=== PATIENT | male | born 1950 | race Caucasian/White ===

== ENCOUNTER 2017-03-13 00:40 | Inpatient (IN) ==
[2017-03-13] MEDS ORDERED: NS 1,000 ML IV ONE (01:02)
[2017-03-13] MEDS ORDERED: DiltiaZEM 25 MG/5 ML INJECTION IVP ONE (01:11)
[2017-03-13] MEDS: DiltiaZEM Drip 125 MG in NS 100 ML IV SCH ×3 (01:35→18:58)
[2017-03-13] MEDS ORDERED: CEFTRIAXONE (ER USE ONLY) 1 GM in NS 100 ML IV ONE (02:01)
[2017-03-13] MEDS ORDERED: AZITHROMYCIN IV 500 MG in NS 250ml 250 ML IV ONE (02:02)
[2017-03-13] MEDS ORDERED: ONDANSETRON 4 MG/2 ML INJECTION IVP PRN (02:29)
--- NOTE | 2017-03-13 02:37 | Emergency Department Report ---
General Adult HPI - General Chief complaint: Upper Respiratory Infection Stated complaint: [place] Time Seen by Provider: 03/13/17 00:58 Source: patient Mode of arrival: EMS Limitations: no limitations - History of Present Illness HPI narrative: 66-year-old male presents to the emergency department with a chief complaint of a COPD exacerbation. Patient has been feeling short of breath and palpitations for the past 3 days. Patient has been noncompliant with his medication regimen for the past several days. Patient states he stopped taking his medicines because he is dissatisfied with his doctor at [facility] patient denies any pain or discomfort. Patient does note feeling like his heart is beating quickly. Patient does note feeling better from a respiratory standpoint with the albuterol and Solu-Medrol given from EMS. Patient notes a cough productive of yellow phlegm. He denies any other complaints or associated symptoms. Symptoms have been persistent in nature since onset. Patient was at home when his symptoms began. - Related Data Home Medications Medication Instructions Recorded Confirmed Albuterol Sulfate [Ventolin Hfa] 1 - 2 puff ORAL INH Q6H PRN #0 01/22/16 Furosemide 120 mg PO DAILY #0 01/22/16 Ginkgo Biloba (Ginkgo) PO TID #0 01/22/16 Ibuprofen 800 mg PO Q4H PRN #0 01/22/16 Ipratropium/Albuterol Sulfate 1 vial AEROSOL Q6H PRN #0 01/22/16 [Iprat-Albut 0.5-3(2.5) mg/3 ml] L.acidoph,Paracasei, B.lactis 1 cap PO DAILY #0 01/22/16 [Probiotic] Potassium PO DAILY #0 01/22/16 Potassium Chloride ER Tab [K-Dur] 20 meq PO BID #0 01/22/16 Previous Rx's Medication Instructions Recorded Levalbuterol HCl [Xopenex] 1 vial AEROSOL QID #60 vial 01/22/16 PredniSONE [Deltasone] 20 mg PO PER COMMENTS #15 tab 01/22/16 Allergies Allergy/AdvReac Type Severity Reaction Status Date / Time No Known Allergies Allergy Unverified 12/03/14 11:21 Review of Systems Constitutional: Denies: fever, chills Eyes: Denies: eye pain, vision change ENT: Denies: ear pain, throat pain Cardiovascular: Reports: palpitations. Denies: chest pain Respiratory: Reports: cough, dyspnea, wheezes. Denies: hemoptysis Gastrointestinal: Denies: abdominal pain, nausea, vomiting, diarrhea Genitourinary: Denies: urgency, dysuria Musculoskeletal: Denies: back pain, arthralgia Integumentary: Denies: erythema, rash Neurological: Denies: headache, numbness Psychiatric: Denies: anxiety, depression Endocrine: Denies: fatigue, heat or cold intolerance Hematological/Lymphatic: Denies: easy bleeding, easy bruising Allergic/Immunologic: Denies: facial swelling, urticaria PFSH Patient Stated Medical History Cardiac Arrhythmia Yes Congestive Heart Failure Yes Chronic Obstructive Pulmonary Yes Disease (COPD) COPD, CHF, oxygen dependence - 4L NC, DM2, HTN, HLD Surgical History: Negative per patient. Family History: Reviewed and Non-contributory. - Social History Smoking status: Current every day smoker Substance use type: does not use Alcohol intake frequency: does not drink Physical Exam - Limitations Limitations: no limitations - General General appearance: alert, in no apparent distress - Normal Exams: Head:: Normocephalic without trauma Eyes:: Pupils are PERRLA w/ EOMI, No scleral icterus, irritation, or foreign bodies noted ENMT:: No facial trauma, nasal exudates, pharyngeal erythema, or exudates are noted Dental: No fractured, loose, or missing teeth noted Neck:: Full range of motion, without adenopathy, JVD, bruits or thyromegaly Chest/Respirations:: with good airflow, and symmetry bilaterally (Scattered end expiratory wheezes bilaterally. ) Cardiovascular:: without murmur or gallop, Pulses 2+ all extremities, capillary refill, <2 seconds all extremities (Irregularly Irregular Rhythm.) Abdomen:: Bowel sounds positive, soft, non-tender, non-distended, no hepatosplenomegaly, masses or bruits noted Lymphatic:: No lymphadenopathy, or lymphedema noted Musculoskeletal:: No tenderness, or deformity noted, good range of motion, all extremities Integumentary:: No rashes, hives, or bruising noted, hair and nails, without abnormality Neurological:: Patient is alert, and oriented, cranial nerves, motor/sensory/ cerebellar, exams w/o gross deficits, to observation Psychiatric:: Patient exhibits, appropriate attention, emotion and affect Course Vital Signs Temperature 98.7 F 07/30/17 00:40 Pulse Rate 158 H 03/13/17 00:40 Respiratory Rate 20 03/13/17 00:40 Blood Pressure 88/67 03/13/17 00:40 Pulse Oximetry 97 03/13/17 00:40 Temperature 98.7 F 03/13/17 00:40 Pulse Rate 146 H 03/13/17 02:17 Respiratory Rate 26 H 03/13/17 02:17 Blood Pressure 93/66 03/13/17 02:17 Pulse Oximetry 97 03/13/17 02:17 Medical Decision Making - MDM Narrative Medical decision making narrative: Labs / imaging were discussed in detail with the patient and questions are answered. Patient was given 500 mL normal saline intravenously in the emergency department. Cardizem drip was initiated in the emergency department with a 10 mg bolus and drip initiated at 5 mg/hr. Drip was titrated up to 10 mg /hour in the emergency department the time of transfer to CCU. Patient's heart rate was approximately 127 beats per minute upon admission to hospital. Patient remained pain-free in the emergency department but does note feeling of palpitations. Patient was given nebulized albuterol treatment and Solu-Medrol 125 mg IV 1 from EMS prior to arrival to the emergency department. Blood cultures were obtained and patient was started on Rocephin 1 g intravenously and azithromycin 500 mg IV 1 in the emergency department. Patient was admitted to the CCU in improved condition after discussion with Dr. Lee who is the tele-hospitalist covering for Dr. Potts. Patient is admitted to the service of Dr. Potts in improved condition. Patient is in agreement with the current plan of management. Accepting physician is in agreement with the current plan of management. No further orders. Anticoagulation will be left to the patient's greaser helper Dr. Martins who has been consult and will see the patient in the morning. Diuresis will also be left up to the patient's greaser helper. 60 minutes of critical care time was assessed to the patient due to complex medical decision-making, repeated assessment at the bedside, and potential for decompensation. Patient was admitted to the ICU in improved condition. - Differential Diagnosis COPD exacerbation, Afib with RVR, Metabolic disorder, CHF exacerbation - Lab Data Result diagrams: 03/13/17 01:07 03/13/17 01:07 Lab Results 03/13/17 03/13/17 Range/Units 01:07 01:07 WBC 9.1 (4.5-11.0) T/MM3 RBC 4.20 L (4.50-5.90) M/MM3 Hgb 13.9 (13.5-17.5) GM/DL Hct 43.9 (41-53) % MCV 104.5 H (80-100) UM3 MCH 33.1 (26-34) UUG MCHC 31.7 (31-37) GM/DL RDW Std Deviation 51.7 H (36.9-50.2) FL Plt Count 169 (130-400) T/MM3 MPV 11.2 (9.4-12.4) UM3 Immature Gran % (Auto) 0.1 (0.0-0.5) % Neut % (Auto) 49.8 (33-66) % Lymph % (Auto) 38.9 (23-45) % [place] % (Auto) 8.0 (0-9.0) % Eos % (Auto) 2.8 (0-4) % Baso % (Auto) 0.4 (0-2) % Neut # 4.5 (1.8-7.7) T/MM3 Lymph # 3.5 (1-4.8) T/MM3 [place] # 0.7 (0-0.8) T/MM3 Eos # 0.3 (0-0.5) T/MM3 Baso # 0.0 (0-0.2) T/MM3 Abs Immat Gran (auto) 0.01 (0.00-0.03) T/MM3 Turbidity < 20 (0-20) Sodium 144 (134-144) MEQ/L Potassium 3.6 (3.6-5) MEQ/L Chloride 99 (98-107) MEQ/L Carbon Dioxide 37 H (22-30) MEQ/L Anion Gap 8 (5-15) MEQ/L BUN 21.0 H (9-20) MG/DL Creatinine 0.8 (0.8-1.5) MG/DL GFR Calculation 97 BUN/Creatinine Ratio 26 (6-26) RATIO Glucose 117 H (75-110) MG/DL Calculated Osmolality 281 H (261-280) MOSM/KG Calcium 9.3 (8.4-10.2) MG/DL Total Bilirubin 1.90 H (0.20-1.30) MG/DL Icterus Index < 2 (0-7) AST 48 (17-59) U/L ALT 62 (21-72) U/L Alkaline Phosphatase 72 (38-126) U/L Troponin I 0.045 (0-0.12) ng/ml B-Natriuretic Peptide 2030 H (0-175) pg/mL Total Protein 7.3 (6.3-8.2) G/DL Albumin 4.1 (3.5-5.0) G/DL Globulin 3.2 (2.4-3.6) G/DL Albumin/Globulin Ratio 1.3 (1.1-2.2) RATIO Specimen Hemolysis < 15 (0-25) - Radiology Data CXR - Findings consistent with fluid overload and cannot rule out LLL infilatrate. - EKG Data EKG #1 EKG results narrative: Atrial fibrillation with rapid ventricular response. 151 bpm. No STEMI. Critical Care Time Critical Care Time: Yes Total Critical Care Time: 60 Attestation: Patient required complex medical decision-making, repeated assessment at the bedside, and had potential for decompensation. Patient was started on a Cardizem drip in the emergency department which will be titrated to effect. Cardizem drip was at 7.5 mg/hour at the time of admission to CCU. Drip will be titrated up forward as indicated for rate control. Patient was admitted to the ICU in improved condition. Critical care time was spent discussing the patient with family, and documenting the medical record, making phone calls regarding patient care, and treating the patient. Disposition Clinical Impression: Atrial fibrillation with RVR, COPD exacerbation Disposition: 02 To [facility] Acute Care Condition: Improved Time of Disposition: 02:00 (Admit. Dr. Potts. ) - Seen By: physician
[2017-03-13] MEDS ORDERED: NS FLUSH BAG 500ml IV PRN (02:50)
[2017-03-13] MEDS: NICOTINE 21 MG PATCH TD PRN (03:19)
--- NOTE | 2017-03-13 03:23 | History & Physical Report ---
<Rolo Lee - Last Filed: 03/13/17 03:18> History of Present Illness Date: 03/13/17 Chief complaint: shortness of breath, cough, wheezing HPI: This is a 66 y/o w/ h/o COPD, CHF and multiple other medical issues who presents to ED w/ cc of 3 day h/o worsening cough, shortness of breath and wheezing. Patient states using "puffers" of albuterol at home frequently yesterday and then given neb alb en route and in ER noted to be in AFib RVR w/ rate varying from 90s - 160s. EKG showed Afib w/ rate of 150. Patient on 4 L /min O2 continuously and sats have been stable. Patient denies f/c/s, denies cp , diaphoresis, de luna and n/v. Patient has h/o COPD exacerbations in the past. CXR in ER suspicous for LLL infiltrate though not well visualized - per prelim report. In ER patient started on Azithromycin and Ceftriaxone and given Solu- Medrol 125mg IV x one and also Cardizem 10mg IV bolus and started on Cardizem gtt. Patient states has no recollection of Afib in the past. Patient in Unit states he is breathing "much better". O2 sats unchanged. Patient admitted to the Hospitalist service for futher eval and management. Review of Systems Review of systems: 10 point ROS negative except as noted in HPI PFSH CHF, COPD on 4 L/min O2 continuously and continues to smoke tobacco cigarettes LE edema Chronic Hypoxic Resp failure Surgical History: Negative per patient. Family History: Mother w/ COPD - Social History Smoking status: Current every day smoker Alcohol intake frequency: a few times a month Medications Home Medications Medication Instructions Recorded Confirmed Type Albuterol Sulfate [Ventolin Hfa] 1 - 2 puff ORAL INH Q6H PRN #0 01/22/16 History Furosemide 120 mg PO DAILY #0 01/22/16 03/13/17 History Ginkgo Biloba tab PO TID #0 01/22/16 History Ibuprofen 800 mg PO Q4H PRN #0 01/22/16 03/13/17 History Ipratropium/Albuterol Sulfate 1 vial AEROSOL Q6H PRN #0 01/22/16 03/13/17 History [Iprat-Albut 0.5-3(2.5) mg/3 ml] L.acidoph,Paracasei, B.lactis 1 cap PO DAILY #0 01/22/16 03/13/17 History [Probiotic] Potassium Chloride ER Tab [K-Dur] 20 meq PO BID #0 01/22/16 03/13/17 History Allergies Allergy/AdvReac Type Severity Reaction Status Date / Time No Known Allergies Allergy Verified 03/13/17 05:10 Exam Vital Signs: Temperature 98.7 F 03/13/17 00:40 Pulse Rate 146 H 03/13/17 02:17 Respiratory Rate 26 H 03/13/17 02:17 Blood Pressure 93/66 03/13/17 02:17 Pulse Oximetry 97 03/13/17 02:17 Telemetry Rhythm: A-fib with RVR Height: 1.75 m Weight: 133.3 kg - Constitutional Present: no acute distress - Routine HEENT Exam Head: Present: normocephalic, atraumatic Eye: Present: EOMI, PERRL ENT: Present: mucous membranes moist - Routine Neck Exam Present: supple, full ROM. Absent: JVD - Routine Respiratory Exam Present: prolonged expiratory phase, rales, wheezes. Absent: accessory muscle use, dyspnea - Routine Cardiovascular Exam Present: irregular rhythm - Routine Abdominal Exam Present: soft, normoactive bowel sounds, non distended. Absent: tenderness - Routine Extremities Exam Present: edema (trace to 1+ LE edema (L>R)). Absent: cyanosis, clubbing - Routine Neurological Exam Present: alert, oriented X3, CN II-XII intact. Absent: altered mental status - Routine Psychiatric Exam Present: normal affect, normal thought process, cooperative Results - Labs CBC & Chem 7: 03/13/17 01:07 03/13/17 01:07 Assessment and Plan DVT Prophylaxis: SCD's Resuscitation Status: Do Not Resuscitate Assessment and Plan: 1) Acute COPD Exacerbation 2) Acute Bronchitis vs. Acute LLL pneumonia 3) Acute Afib w/ RVR 4) H/o CHF 5) Chronic Hypoxic Respiratory Failure on chronic O2 per NC at 4 L/min 6) h/o corticosteroid use 7) Tobacco use - 30-40 + years Plan: Admit to CCU on Hospitalist service Consult Cardiology Cardizem gtt - titrate as directed SCDs Labs in Am Troponin at 0600 Rocephin 1 gram IV q 24 hoursnder Azithromycin 500mg x one in ER, then 250mg po once daily starting tonight Xopenex TID prn Solu-Medrol 125mg IV q 8 hours Continue Lasix and KCL supplements Telemetry Cardiac diet Nicotine patch Patient desires to be DNR - confirmed by ER physician and nursing I discussed the plan of care w/ the patient and he verbalized understanding and agreement Hospital Course Summary Disclaimer: The visit summary below is not to be considered part of the above Progress Note. <German Potts - Last Filed: 03/13/17 09:03> History of Present Illness Date: 03/13/17 [facility] Patient Stated Medical History Cardiac Arrhythmia Yes Congestive Heart Failure Yes Chronic Obstructive Pulmonary Yes Disease (COPD) Other GI constipation Hx Benign Prostatic Yes Hyperplasia Hx Kidney Stones Yes Exam Vital Signs: Temperature 98.3 F 03/13/17 07:26 Pulse Rate 91 03/13/17 07:45 Respiratory Rate 25 H 03/13/17 07:45 Blood Pressure 148/80 H 03/13/17 07:45 Pulse Oximetry 96 03/13/17 07:45 Oxygen Delivery Method Nasal Cannula Oxygen Flow Rate 3 Height: 5 ft 9 in Weight: 135.4 kg Results - Labs CBC & Chem 7: 03/13/17 01:07 03/13/17 01:07 Assessment and Plan Assessment and Plan: Above pt seen in the ICU, appears to be more comfortable. Telemetry still shows HR ranging from 90 to 130. Pt verbalized being a DNR. He lives alone and states has no friends or significant family support. Denies being suicidal, but admits being depressed ( who would'nt be? - he told me). On PE Pt mucosas are moist. Neck - short and thick. Chest - poor air entry bilaterally. Irregular rate and rhythm. Abd - Soft NT/ND Ext - trace pedal edema. Diagnosis 1) CHF with superimposed A fib + RVR. - Continue cardizem drip - Check TSH - May need to have 2-D echo repeated. - Denies any recent alcohol consumption. - Check UDS. - First 2 TnI negative. 2) COPD exacerbation - with ? of LLL PNA. Per admission pt has chronic respiratory failure. - CXR PA and Lateral ordered - Continue Rocephin and Zithromax. - Pt has been exposed to Tobacco for 30 to 40 years. - Solu-Medrol 125mg IV q 8 hours + accuchecks and sliding scale coverage for high BS. 3) Depression - due to ? medical condition ? of thyroid problems. 4) ELADIA ? Pt states he chokes at night, this could be due to his CHF (PND - orthopnea). - Check nocturnal oxymetry once more compensated. 5) Tobacco abuse. - On Nicotine patch for now. Prevention 1) SCD's 2) Nicotine patch 3) Lovenox. Patient desires to be DNR Hospital Course Summary Disclaimer: The visit summary below is not to be considered part of the above Progress Note.
[2017-03-13] MEDS: METHYLPREDNISOLONE SOD SUCC 125mg/2ml INJECTION IVP SCH ×3 (03:39→17:31)
[2017-03-13 03:57] VITALS: BMI 43.2
[2017-03-13] MEDS: ENOXAPARIN 40 MG/0.4 ML INJECTION SQ SCH ×2 (04:44→08:28)
[2017-03-13] MEDS ORDERED: FUROSEMIDE 40 MG/4 ML INJECTION IVP ONE (05:01)
[2017-03-13] MEDS: SALINE FLUSH 10ml SYRINGE IVF PRN ×3 (06:00→17:32)
[2017-03-13] MEDS ORDERED: NICOTINE PATCH REMOVAL TD PRN (06:15)
[2017-03-13] MEDS ORDERED: FUROSEMIDE 80 MG TABLET PO SCH (09:00)
[2017-03-13] MEDS ORDERED: FUROSEMIDE 40 MG TABLET PO SCH (09:00)
[2017-03-13] MEDS ORDERED: DEXTROSE 50% SYRINGE 50ml (1 AMP) IVP PRN (09:04)
--- NOTE | 2017-03-13 09:09 | XRay Report ---
INDICATION: Clarify if pt has focal infiltrate vs CHF alone PROCEDURE: CHEST 2-VIEWS UPRIGHT (PA & LAT) Encounter: Initial COMPARISON: March 13, 2017 at 0125 and January 22, 2016 FINDINGS: Increased interstitial markings and indistinct opacities in both lung hogan. No pneumothorax or focal lobar consolidation. No obvious pleural effusion. Heart remains enlarged. Mediastinal contours are stable. Pulmonary vascularity is indistinct. Impression: Diffuse interstitial pattern could represent moderate pulmonary edema from congestive failure or atypical/viral pneumonia. .
--- NOTE | 2017-03-13 09:15 | XRay Report ---
Indication: Wheezing PROCEDURE: XR chest 1V: Encounter: Initial Comparison: January 22, 2016 Findings: Mild diffusely increased interstitial markings are seen, similar to the prior study. Left lung base is obscured by soft tissues and overlapping cardiac silhouette. No pneumothorax or pleural effusion seen. No focal lobar pneumonia. Cardiac silhouette remains enlarged. Mediastinal contours are stable. Pulmonary vascularity is indistinct. Impression: Diffuse interstitial prominence could represent pulmonary edema or atypical/viral pneumonia. .
[2017-03-13] MEDS: FUROSEMIDE 40 MG/4 ML INJECTION IVP SCH ×2 (09:59→20:28)
[2017-03-13] MEDS ORDERED: INHALER ASSIST DEVICE (Optichamber) MC ONE (10:30)
[2017-03-13] MEDS: TIOTROPIUM 18mcg/cap HANDIHALER ORAL INH SCH (10:51)
[2017-03-13] MEDS: INSULIN ASPART 100unit/ml INJECTION SQ PRN ×3 (11:23→21:13)
[2017-03-13] MEDS ORDERED: PNEUMOCOCCAL 13 VACCINE 0.5ml INJECTION IM ONE (16:33)
[2017-03-13] MEDS ORDERED: MAGNESIUM SULFATE 1gm PREMIX 1 GM/100 ML BAG IV ONE (17:25)
[2017-03-13] MEDS: CEFTRIAXONE 1 G in NS 100 ML IV SCH (20:24)
[2017-03-13] MEDS ORDERED: AZITHROMYCIN 250 MG TABLET PO SCH (21:00)
[2017-03-14] MEDS: METHYLPREDNISOLONE SOD SUCC 125mg/2ml INJECTION IVP SCH (01:37)
[2017-03-14] MEDS: SALINE FLUSH 10ml SYRINGE IVF PRN ×5 (01:38→16:36)
[2017-03-14] MEDS: DiltiaZEM Drip 125 MG in NS 100 ML IV SCH (05:02)
[2017-03-14] MEDS: INSULIN ASPART 100unit/ml INJECTION SQ PRN ×3 (06:31→20:41)
[2017-03-14] MEDS: NICOTINE 21 MG PATCH TD PRN (08:00)
[2017-03-14] MEDS ORDERED: NS 100 ML ONE (08:01)
[2017-03-14] MEDS ORDERED: SALINE FLUSH 10ml SYRINGE ONE (08:01)
[2017-03-14] MEDS ORDERED: IOHEXOL 350mg/ml 75ml INJECTION ONE (08:01)
[2017-03-14] MEDS: ENOXAPARIN 40 MG/0.4 ML INJECTION SQ SCH (08:02)
[2017-03-14] MEDS: FUROSEMIDE 40 MG/4 ML INJECTION IVP SCH ×2 (08:30→20:40)
--- NOTE | 2017-03-14 08:40 | CT Scan Report ---
Indication: Rule out PE PROCEDURE: CT angio pulm emboli: Encounter: Initial Comparison: Chest x-ray, 03/13/2017 Technique: Axial, coronal, and sagittal images of the chest were acquired utilizing CT and radiographic technique with additional coronal and sagittal MIPS images and utilizing 74 cc of Omnipaque 350. Radiation dose reduction techniques were utilized. Findings: There are no definite filling defects within the pulmonary arteries. There is cardiomegaly with biventricular enlargement and a small pericardial effusion. There is multivessel coronary artery disease manifested as coronary artery calcifications. There are bilateral effusions bibasal atelectasis. There is pulmonary hypervascularity and mixed interstitial and airspace changes suggesting congestive heart failure with pulmonary edema. Images through the upper abdomen demonstrates no adrenal mass effect. Bone window review demonstrates some degenerative endplate changes of the dorsal spine but no aggressive lesions are identified. Impression: 1. Negative for pulmonary embolism. 2. Findings typical of congestive heart failure with mixed interstitial and alveolar edema. 3. Bibasal effusions and atelectasis. 4. Trace pericardial effusion. 5. Coronary artery disease. .
[2017-03-14] MEDS: TIOTROPIUM 18mcg/cap HANDIHALER ORAL INH SCH (08:47)
[2017-03-14] MEDS: METHYLPREDNISOLONE SOD SUCC 40mg/ml INJECTION IVP SCH ×2 (10:01→16:36)
--- NOTE | 2017-03-14 10:07 | Progress Note ---
Subjective: Pt states he is feeling well today, still with dyspnea but not too bad. He had an uneventful night. Denies any CP/SOB. No new episodes of NSVT Objective Vital signs: Temperature 97.9 F 03/14/17 08:00 Pulse Rate 113 H 03/14/17 09:00 Respiratory Rate 28 H 03/14/17 09:00 Blood Pressure 140/85 H 03/14/17 09:00 Pulse Oximetry 93 03/14/17 09:00 Oxygen Delivery Method Nasal Cannula Oxygen Flow Rate 5 Rhythm: Normal Sinus Rhythm Weight: 135.2 kg - Constitutional Present: no acute distress - Routine HEENT Exam Head: Present: normocephalic, atraumatic Eye: Present: EOMI, PERRL ENT: Present: mucous membranes moist - Routine Respiratory Exam Present: dyspnea, rhonchi, wheezes, distant breath sounds - Routine Cardiovascular Exam Present: irregularly irregular - Routine Abdominal Exam Present: soft, non distended, non tender - Routine Extremities Exam Present: edema. Absent: cyanosis, clubbing - Routine Neurological Exam Present: alert, oriented X3, CN II-XII intact - Routine Psychiatric Exam Present: normal affect, cooperative, good insight, good judgment Results - Labs CBC & Chem 7: 03/14/17 04:08 03/14/17 04:08 Assessment and Plan Assessment and Plan: Summary: This pt was admitted to the hospital with new onset A fib with RVR. He was placed on cardizem drip, and is still on this drip; Last night his HR was dropping to the 40's on Cardizem and his drip was held. He had an episode of NSVT (03/13). His K was a bit low, and was replaced. No new episodes of NSVT. Pt lives alone and states has no friends or significant family support; on admission he Denied being suicidal, but admits being depressed ( who would'nt be? - he told me). Diagnosis 1) CHF with superimposed A fib + RVR. Still with rapid HR at present. CTA done ( 03/14) showed no evidence of PE. Dr Conley (Staff Alcohol Law Enforcement Agent) has been consulted. - Continue Cardizem drip; added Metoprolol Succinate since CHF is highly likely , rate dropped with cardizem last night but BP did not. - 2-D echo repeated - RESULTS PENDING. - Denies any recent alcohol consumption; UDS was negative. - TnI x 3 negative. 2) COPD exacerbation - with bronchitis - no PNA per CT chest. - Continue Rocephin and Zithromax. - Respiratory pannel (PCR) negative. - Pt has been exposed to Tobacco for 30 to 40 years and is O2 dependent at home with O2 at 4L/min. - Solu-Medrol dose decreased to 40 mg IV q 8 hours (03/14) + accuchecks and sliding scale coverage for high BS. - Will consider PFT's prior to D/C 3) ELADIA ? Pt states he chokes at night, this could be due to his CHF (PND - orthopnea). - Check nocturnal oxymetry once more compensated. 4) Tobacco abuse. - On Nicotine patch for now. 5) Depression - due to ? medical condition ? - Not on any medications - - Would consider Bupropion as first line agent due to his weight may also help him decrease Tobacco use. Prevention 1) Nicotine patch 2) Lovenox. 3) Omeprazole. Patient desires to be DNR Sepsis Assessment - Evaluation Sepsis screening result: No Definite Risk Hospital Course Summary Disclaimer: The visit summary below is not to be considered part of the above Progress Note.
--- NOTE | 2017-03-14 10:33 | Cardiology Consult Note ---
History of Present Illness Consult date: 03/14/17 Consult reason: atrial fibrillation Chief complaint: Atrial Fibrillation with RVR History of present illness: Mr Gillis is a 66-year-old male with a history of COPD, CHF, and other medical issues who presented [place] [facility] [place] due to a 3 day history of worsening cough, shortness of breath and wheezing. He was admitted to the hospital with new onset Afib with RVR. He was placed on a Cardizem drip, and is still on the drip. Last night his HR was dropping to the 40's on Cardizem and his drip was held. Brief pauses were noted on EKG. He had an episode of NSVT on 03/13. His K was low, and was replaced. No new episodes of NSVT. He states that he is feeling well today, still with dyspnea but not to bad. He had an uneventful night. Patient states that he does not recall having atrial fibrillation in the past, but states that since he has been a teenager he has been experiencing intermittent episodes when it felt like his heart was "fluttering". He states that he started to feel ill about a month ago and has been experiencing increased dyspnea, edema, dizziness, and nausea during that time period. He states that he started to get a severe pain along the left side of his abdomen and lower portion of his ribcage after eating that continued to intensify which is what led him to seek medical attention among the other symptoms that he had been experiencing. He denies chest pain and palpitations. He admits to orthopnea and waking frequently struggling to catch his breath. Rhonchi, crackles, and wheezes prominent on chest auscultation. He in on 4L/min O2 continuous at home that he started about a year ago after a COPD exacerbation. He admits to smoking about one ppd. Admits drinking heavily since 1988 and admits episodes of bingeing and subsequent falls, with the most recent fall occurring about one month ago. He states that he recently gave up hard liquor about a month ago but still drinks beer. His family history is significant for TX in his father and cardiomegaly in his mother. Serial troponin levels have been noted to be negative since admission. Patient's BNP was noted to be 2030 upon admission. CXR in ER suspicious for LLL infiltrate and shows cardiomegaly. His HR was noted to be fluctuating between 85-125 bpm during evaluation. Atrial fibrillation noted on EKG with no other acute changes. Echocardiogram shows normal left ventricular function and 2+ mitral regurgitation. CTA negative for PE, positive for interstitial pulmonary congestion. Review of Systems Comprehensive ROS: completed and no additional positive findings except those as stated PFSH Patient Stated Medical History Cardiac Arrhythmia Yes Congestive Heart Failure Yes Chronic Obstructive Pulmonary Yes Disease (COPD) Other GI constipation Hx Benign Prostatic Yes Hyperplasia Hx Kidney Stones Yes Questionable TIA in the past Surgical History: Negative per patient. Family History: Father significant for TX Mother significant for COPD and cardiomegaly - Social History Smoking status: Current every day smoker Medications Home Medications Medication Instructions Recorded Confirmed Type Albuterol Sulfate [Ventolin Hfa] 1 - 2 puff ORAL INH Q6H PRN #0 01/22/16 History Furosemide 120 mg PO DAILY #0 01/22/16 03/13/17 History Ginkgo Biloba tab PO TID #0 01/22/16 History Ibuprofen 800 mg PO Q4H PRN #0 01/22/16 03/13/17 History Ipratropium/Albuterol Sulfate 1 vial AEROSOL Q6H PRN #0 01/22/16 03/13/17 History [Iprat-Albut 0.5-3(2.5) mg/3 ml] L.acidoph,Paracasei, B.lactis 1 cap PO DAILY #0 01/22/16 03/13/17 History [Probiotic] Potassium Chloride ER Tab [K-Dur] 20 meq PO BID #0 01/22/16 03/13/17 History Allergies Allergy/AdvReac Type Severity Reaction Status Date / Time No Known Allergies Allergy Verified 03/13/17 05:10 Exam Vital signs: Temperature 97.9 F 03/14/17 08:00 Pulse Rate 113 H 03/14/17 09:00 Respiratory Rate 29 H 03/14/17 10:12 Blood Pressure 140/85 H 03/14/17 09:00 Pulse Oximetry 93 03/14/17 09:00 Oxygen Delivery Method Nasal Cannula Oxygen Flow Rate 5 - Constitutional no acute distress, obese, cooperative - Routine HEENT Exam Head: Present: normocephalic, atraumatic ENT: Present: mucous membranes moist, oropharynx clear Nose: moist mucous membranes - Routine Neck Exam Present: supple, full ROM, JVD, trachea midline. Absent: carotid bruit, thyromegaly - Routine Chest/Breast/Axilla Exam Chest wall: Absent: tenderness - Routine Respiratory Exam Present: rhonchi, wheezes, crackles - Routine Cardiovascular Exam Present: tachycardia, irregularly irregular, JVD. Absent: murmur - Routine Abdominal Exam Present: soft, normoactive bowel sounds, non tender, distended (Moderately ) - Routine Extremities Exam Present: clubbing, no edema - Routine Skin Exam Present: intact, dry, warm - Routine Neurological Exam Present: alert, oriented X3, normal speech - Routine Psychiatric Exam Present: normal affect, normal thought process, cooperative Results 03/15/17 03:52 03/15/17 03:52 Cardiac Enzymes 03/13/17 03/13/17 Range/Units 11:38 11:38 AST 50 (17-59) U/L Troponin I 0.028 (0-0.12) ng/ml CBC 03/13/17 03/13/17 03/14/17 Range/Units 11:38 16:39 04:08 WBC 4.4 L D 4.6 9.5 D (4.5-11.0) T/MM3 RBC 4.07 L 4.00 L 3.99 L (4.50-5.90) M/MM3 Hgb 13.3 L 13.2 L 13.0 L (13.5-17.5) GM/DL Hct 42.7 41.5 41.5 (41-53) % Plt Count 161 161 159 (130-400) T/MM3 Neut # Not performed Not performed Lymph # Not performed Not performed [place] # Not performed Not performed Eos # Not performed Not performed Baso # Not performed Not performed Comprehensive Metabolic Panel 03/13/17 03/13/17 03/14/17 Range/Units 11:38 16:39 04:08 Sodium 144 144 144 (134-144) MEQ/L Potassium 3.6 3.3 L 3.5 L (3.6-5) MEQ/L Chloride 96 L 97 L 97 L (98-107) MEQ/L Carbon Dioxide 33 H 32 H 36 H (22-30) MEQ/L BUN 21.0 H 23.0 H 26.0 H (9-20) MG/DL Creatinine 0.7 L 0.7 L 0.7 L (0.8-1.5) MG/DL Glucose 225 H 229 H 169 H (75-110) MG/DL Calcium 9.1 9.4 9.3 (8.4-10.2) MG/DL Unconjugated Bilirubin 0.80 (0.00-11.10) MG/DL AST 50 (17-59) U/L ALT 59 (21-72) U/L Alkaline Phosphatase 62 (38-126) U/L Total Protein 6.8 (6.3-8.2) G/DL Albumin 4.1 (3.5-5.0) G/DL Intake and Output 03/13/17 03/14/17 03/14/17 22:59 06:59 14:59 Intake Total 666.0 / 666.0 552.750 / 552.750 370 / 370 Output Total 650 / 650 450 / 450 600 / 600 Balance 16.0 / 16.0 102.750 / 102.750 -230 / -230 Intake: IV 306.0 / 306.0 102.750 / 102.750 10 / 10 Rocephin 1 G In Normal 100 / 100 Saline 100 ml @ 200 mls/ hr IV Q24H [facility] Rx#: [id number] Cardizem IV 125 mg In 106.0 / 106.0 102.750 / 102.750 10 / 10 Normal Saline 100 ml @ 5 MG/HR 5 mls/hr IV .Q24H [facility] Rx#:[id number] MAG SULF 1gm PREMIX 1 gm 100 / 100 In 100 ml @ 100 mls/hr IV O ONE Rx#:[id number] Oral 360 / 360 450 / 450 360 / 360 Output: Urine 650 / 650 450 / 450 600 / 600 Other: Weight 135.2 kg Patient Weight 03/15/17 06:59 Weight 135.2 kg - EKG Interpretation EKG: no acute changes EKG shows: atrial fibrillation EKG interpretations - EKG EKG results cardiology: no acute changes EKG shows: atrial fibrillation Assessment and Plan (1) Atrial fibrillation with RVR Current visit: Yes Status: Acute Not a good candidate for anticoagulation at this time due to high fall risk associated with chronic alcoholism and past falls. will add ASA. cont rate control , will switch IV to PO Diltizem. lower PO BB d/t copd/ wheezing. keep ig going for CAD (on CTA ) and NSVT , although at lower dose. poor candidate for DC cardioversion , d/t being a poor anticoagulation candidate plus associated risks of sedation with his resp insufficinecy.. (2) Congestive heart failure (CHF) Current visit: Yes Status: Acute (3) Coronary artery disease Current visit: Yes Status: Chronic Medical Management (4) Chronic obstructive pulmonary disease (COPD) Current visit: Yes Status: Chronic (5) Chronic respiratory failure Current visit: Yes Status: Chronic (6) DNR (do not resuscitate) Current visit: Yes Status: Chronic Hospital Course Summary Disclaimer: The visit summary below is not to be considered part of the above Progress Note. Sepsis Assessment - Evaluation Sepsis screening result: No Definite Risk
[2017-03-14] MEDS ORDERED: FUROSEMIDE 20 MG/2 ML INJECTION IVP ONE (13:38)
[2017-03-14] MEDS: ASPIRIN 81 MG CHEWABLE TABLET PO SCH (13:55)
[2017-03-14] MEDS: OMEPRAZOLE 20 MG CAPSULE PO SCH (16:31)
[2017-03-14] MEDS: POLYETHYL GLYCOL 3350 17gm PACKET PO PRN (19:44)
[2017-03-14] MEDS: CEFTRIAXONE 1 G in NS 100 ML IV SCH (19:44)
[2017-03-14] MEDS: AZITHROMYCIN 250 MG TABLET PO SCH (20:40)
[2017-03-15] MEDS: METHYLPREDNISOLONE SOD SUCC 40mg/ml INJECTION IVP SCH ×3 (01:15→17:53)
[2017-03-15] MEDS: OMEPRAZOLE 20 MG CAPSULE PO SCH ×3 (05:19→17:53)
[2017-03-15] MEDS: DiltiaZEM Drip 125 MG in NS 100 ML IV SCH (05:34)
[2017-03-15] MEDS: TIOTROPIUM 18mcg/cap HANDIHALER ORAL INH SCH (07:53)
[2017-03-15] MEDS: FUROSEMIDE 40 MG/4 ML INJECTION IVP SCH (08:33)
[2017-03-15] MEDS: ENOXAPARIN 40 MG/0.4 ML INJECTION SQ SCH (08:33)
[2017-03-15] MEDS: ASPIRIN 81 MG CHEWABLE TABLET PO SCH (08:35)
[2017-03-15] MEDS: SALINE FLUSH 10ml SYRINGE IVF PRN ×5 (08:36→21:13)
[2017-03-15] MEDS: NICOTINE 21 MG PATCH TD PRN (08:42)
--- NOTE | 2017-03-15 08:54 | Cardiology Progress Note ---
Subjective Principal diagnosis: Atrial Fibrillation with RVR Interval history: Patient states that he had a very uneventful night and feels quite well this morning. He states that he got about 4 hours of sleep and didn't get very restful sleep. He admits to orthopnea and slept partially inclined. His main concern at this time is the fluid distension in his abdomen. He denies chest pain/pressure, palpitations, and edema. He states that he is breathing better this morning than he was yesterday, but he is still not able to take full breathes. Rhonchi, wheezes, and crackles still present on auscultation, however , crackles less prominent today on exam than yesterday. His heart rate upon evaluation ranged from 120-140 bpm. HR was maintained below 100bpm for the majority of the night. Telemetry shows atrial fibrillation with RVR and no other acute changes. Exam Vital signs: Temperature 97.7 F 03/14/17 20:00 Pulse Rate 133 H 03/15/17 06:00 Respiratory Rate 24 03/15/17 07:54 Blood Pressure 138/91 H 03/15/17 06:00 Pulse Oximetry 95 03/15/17 07:00 Oxygen Delivery Method Nasal Cannula Oxygen Flow Rate 5 - Constitutional no acute distress, well nourished, well developed, obese, cooperative - Routine HEENT Exam Head: Present: normocephalic, atraumatic ENT: Present: oropharynx clear - Routine Neck Exam Present: supple, trachea midline. Absent: JVD, carotid bruit, thyromegaly - Routine Respiratory Exam Present: rhonchi ( More predominant in LLB), wheezes, crackles (Bibasliar crackles decreased from previous exam) - Routine Cardiovascular Exam Present: tachycardia, irregularly irregular - Routine Abdominal Exam Present: normoactive bowel sounds, non tender, distended - Routine Extremities Exam Present: clubbing, no edema, pulses intact, normal capillary refill - Routine Skin Exam Present: intact, dry, warm - Routine Neurological Exam Present: alert, oriented X3, normal speech - Routine Psychiatric Exam Present: normal affect, normal thought process, cooperative Progress Note-A&P (1) Atrial fibrillation with RVR Status: Acute Assessment and plan: PO Cardizem increased and given early this am. off gtt. add PRN IV Cardizem bolus. incraese activity if tolerated may go out to telemetry poor candidate for full anticoagulation d/t alcohol binging and falls , risk > benefit. cont ASA. Current Visit: Yes (2) Congestive heart failure (CHF) Status: Acute Assessment and plan: likely due to AFIB w RVR , improving with rate control. diuresing a little , wt down just over 1 Kg. since adm. add ARNOL for HTN and afterload reduction, monitor K /Cr. repeat CXR in am monitor BUN and serume CO2 /HCO3 levels draw ABG in am ,d/t high HCO3 ? contraction alkalosis vs. 2ry to CO2 retention ( less likely). check abd US for suspected acites. Current Visit: Yes (3) Coronary artery disease Status: Chronic Assessment and plan: free form angina. NL LVFX . medical Rx. no more NSVT. cont low dose BB . add statin Rx d/t CAD. fasting lipids may be done outpt w PCp , would be more accurate. Discussed with patient indications for doing a heart catheterization which include ischemic? MR, NSVT, CHF, evidence of CAD on CTA, and high risk factors. Discussed indications, alternatives, risks, and benefits. Patient agrees to proceed with heart cath. Current Visit: Yes (4) Chronic obstructive pulmonary disease (COPD) Status: Chronic Current Visit: Yes (5) Chronic respiratory failure Status: Chronic Current Visit: Yes (6) DNR (do not resuscitate) Status: Chronic Current Visit: Yes - Time Spent With Patient Total time spent is greater than 50% in coordination of care (as documented) at patient's floor/unit and/or counseling patient: greater than 35 minutes Sepsis Assessment - Evaluation Sepsis screening result: No Definite Risk Hospital Course Summary Disclaimer: The visit summary below is not to be considered part of the above Progress Note.
--- NOTE | 2017-03-15 10:58 | Progress Note ---
Subjective: Mr Gillis is doing well today, remains in the ICU but is off drips. Denies any CP/SOB, no respiratory distress. Pt has asked about going home several times. Still his HR goes up fairly quickly to 140 to then drop to the high 70' s. Objective Vital signs: Temperature 97.7 F 03/15/17 08:00 Pulse Rate 135 H 03/15/17 09:00 Respiratory Rate 25 H 03/15/17 09:05 Blood Pressure 158/96 H 03/15/17 09:00 Pulse Oximetry 91 03/15/17 09:00 Oxygen Delivery Method Nasal Cannula Oxygen Flow Rate 5 Rhythm: Atrial Fibrillation with RVR Weight: 132.6 kg - Constitutional Present: no acute distress, obese - Routine HEENT Exam Head: Present: normocephalic, atraumatic Eye: Present: EOMI, PERRL - Routine Respiratory Exam Present: rhonchi, wheezes, distant breath sounds - Routine Cardiovascular Exam Present: irregularly irregular - Routine Abdominal Exam Present: soft, non distended, non tender - Routine Extremities Exam Present: edema. Absent: cyanosis, clubbing - Routine Neurological Exam Present: alert, oriented X3 - Routine Psychiatric Exam Present: normal affect, cooperative, good insight, good judgment Results - Labs CBC & Chem 7: 03/15/17 03:52 03/15/17 03:52 Assessment and Plan Assessment and Plan: Summary: This pt was admitted to the hospital with new onset A fib with RVR. He was placed on cardizem drip, which lowered his rate to about 110 - on 03/13 at night his HR was dropping to the 40's on Cardizem and his drip was held. He had an episode of NSVT (03/13); at that time his K was a bit low, and was replaced. No new episodes of NSVT. Pt lives alone and states has no friends or significant family support; on admission he Denied being suicidal, but admits being depressed ( who would'nt be? - he told me). He states he is feeling well, still HR going up to the 140's. His regime was changed to oral yesterday but Dr Conley (Staff Senior Research Scientist). Pt could be going to medical floor with telemetry soon. Diagnosis 1) CHF with superimposed A fib + RVR. Still with rapid HR at present. CTA done ( 03/14) showed no evidence of PE. - Cardizem CD 240 mg/day + Toprol XL 25 mg/day. - 2-D echo DONE - final results pending per Dr Conley verbal report - pt has good LVEF, has dilated R cavities ? of pulmonary HTN (Due to hypoxemia - COPD) and 2+ MR. - Denies any recent alcohol consumption; UDS was negative. Has had falls while on alcohol, last one per cardiology notes - 1 month ago. - Deemed a high risk of falls - per facilities operations technician recommendation no anticoagulation - will give ASA - TnI x 3 negative. 2) COPD exacerbation - with bronchitis - no PNA per CT chest. - Continue Rocephin and Zithromax day # 3 - Respiratory pannel (PCR) negative. - Pt has been exposed to Tobacco for 30 to 40 years and is O2 dependent at home with O2 at 4L/min. - Solu-Medrol dose decreased to 40 mg IV q 8 hours (03/14) + accuchecks and sliding scale coverage for high BS. - Will consider PFT's prior to D/C - Once more stable pt will need ABG on RA to re-qualify for O2. 3) ELADIA ? Pt has orthopnea and PND, not sure he is having apnea but would benefit from checking. - Check nocturnal oxymetry once more compensated. 4) Tobacco abuse. - On Nicotine patch for now. 5) Depression - due to ? medical condition ? - Not on any medications - - Would consider Bupropion as first line agent due to his weight may also help him decrease Tobacco use. Prevention 1) Nicotine patch 2) Lovenox for DVT 3) Omeprazole. Patient desires to be DNR Sepsis Assessment - Evaluation Sepsis screening result: No Definite Risk Hospital Course Summary Disclaimer: The visit summary below is not to be considered part of the above Progress Note.
[2017-03-15] MEDS ORDERED: FUROSEMIDE 20 MG/2 ML INJECTION IVP ONE (11:05)
[2017-03-15] MEDS: INSULIN ASPART 100unit/ml INJECTION SQ PRN ×2 (11:36→21:11)
[2017-03-15] MEDS ORDERED: DiltiaZEM 25 MG/5 ML INJECTION IVP PRN (12:18)
[2017-03-15] MEDS ORDERED: acetaZOLAMIDE 250 MG TABLET PO ONE (12:28)
--- NOTE | 2017-03-15 13:55 | Ultrasound Report ---
Indication: abd distention , CHF ?ascites PROCEDURE: US abdomen limited: Encounter: Initial Comparison: None Technique: Grayscale sonographic imaging of the four quadrants of the abdomen was performed. Findings/ Impression: No visible free fluid. .
--- NOTE | 2017-03-15 16:34 | Echocardiogram ---
DATE 03/14/2017 INDICATION Atrial fibrillation, pulmonary congestion on chest x-ray, nonsustained ventricular tachycardia, coronary artery disease noted by calcification on CT angiogram. TECHNICAL QUALITY: Technically good 2D, M-mode and Doppler echocardiographic images were submitted for interpretation. FINDINGS 1. CARDIAC CHAMBERS. Left atrium is dilated, measures 6.3 cm. All other cardiac chambers are normal in size. Right heart appears prominent. RV systolic function appears grossly preserved. Aortic root diameter is normal. The apical four-chamber view suggests a right atrial and right ventricular enlargement as well. 2. LV FUNCTION. Wall thickness analysis shows visually borderline concentric LVH. LV systolic function remains preserved. Ejection fraction is estimated at about 60%. Diastolic function assessment shows E/E' of 12.3. Patient is in underlying atrial fibrillation as well. 3. VALVES. Aortic valve is sclerotic, calcified. Valve opening appears normal. Mitral valve exhibits sclerotic changes. Valve excursion is normal. Tricuspid valve structure and motion appear normal, normal valve excursion. 4. DOPPLER. Analysis shows moderate mitral regurgitation seen as a jet that is directed posteriorly. Again in correlation with this mitral regurgitation, I looked carefully at the left ventricle for wall motion abnormality. Accurate assessment is not possible due to underlying atrial fibrillation and intermittent tachycardia. Other Doppler findings include trace pulmonic insufficiency, trace aortic insufficiency, no aortic stenosis. Normal flow velocities. No aortic stenosis. Mild to moderate tricuspid regurgitation with estimated systolic PA pressure of 67-72 mmHg consistent with severe pulmonary hypertension. Central venous pressure is elevated based on the plethora of IVC that exhibits only minimal respiratory variation. No evidence of intracardiac masses, thrombi, vegetations or shunts. IMPRESSION 1. Severe left atrial enlargement. 2. Concentric LVH with preserved systolic function, EF about 60%. 3. Right atrial enlargement and possible mild right ventricular enlargement with preserved systolic function. 4. Severe pulmonary hypertension. 5. Elevated central venous pressure. 6. Moderate mitral regurgitation (eccentric, directed posteriorly) cannot rule out ischemic MR. 7. Aortic valve sclerosis without stenosis. 8. Mild to moderate tricuspid regurgitation. 9. Patient is in atrial fibrillation with intermittent tachycardia. [facility]
[2017-03-15] MEDS: CEFTRIAXONE 1 G in NS 100 ML IV SCH (20:13)
[2017-03-15] MEDS: AZITHROMYCIN 250 MG TABLET PO SCH (21:11)
[2017-03-15] MEDS: ATORVASTATIN 20 MG TABLET PO SCH (21:11)
[2017-03-15] MEDS: FUROSEMIDE 100 MG/10 ML INJECTION IVP SCH (21:12)
[2017-03-16] MEDS: METHYLPREDNISOLONE SOD SUCC 40mg/ml INJECTION IVP SCH ×3 (02:26→17:53)
[2017-03-16] MEDS: SALINE FLUSH 10ml SYRINGE IVF PRN ×6 (06:30→21:22)
[2017-03-16] MEDS: OMEPRAZOLE 20 MG CAPSULE PO SCH ×2 (06:30→17:53)
[2017-03-16] MEDS: NICOTINE 21 MG PATCH TD PRN (06:31)
[2017-03-16] MEDS: INSULIN ASPART 100unit/ml INJECTION SQ PRN ×3 (06:33→21:34)
--- NOTE | 2017-03-16 08:42 | Cardiology Progress Note ---
Subjective Principal diagnosis: Atrial Fibrillation with RVR Interval history: Patient states that he had a very uneventful night and feels even better today than he did yesterday. He states that he once again did not get very restful sleep. He admits to orthopnea and slept partially inclined. His main concern at this time is the distension in his abdomen, abdominal US showed no fluid accumulation in the abdomen. He denies chest pain/pressure, palpitations, dizziness, and edema. He states that he feels like his breathing is about the same as yesterday or slightly improved. He did have an episode of dyspnea this morning which improved with a breathing treatment. Rhonchi and wheezes still present on auscultation. He admits to coughing up brown tinged sputum which is decreasing in volume from previous days. His heart rate upon evaluation ranged from 90-110 bpm. ABG shows fully compensated respiratory acidosis. Telemetry shows atrial fibrillation with RVR and one episode of NSVT during the night. Patient expresses that he feels quite anxious about his impending heart cath. Exam Vital signs: Temperature 97.5 F 03/16/17 07:42 Pulse Rate 96 03/16/17 07:42 Respiratory Rate 20 03/16/17 07:42 Blood Pressure 131/75 03/16/17 07:42 Pulse Oximetry 96 03/16/17 07:42 Oxygen Delivery Method Nasal Cannula Oxygen Flow Rate 5 - Constitutional no acute distress, well nourished, well developed, obese - Routine HEENT Exam Head: Present: normocephalic, atraumatic ENT: Present: mucous membranes moist, oropharynx clear - Routine Neck Exam Present: supple, trachea midline. Absent: JVD, carotid bruit, thyromegaly - Routine Respiratory Exam Present: dyspnea, rhonchi, wheezes - Routine Cardiovascular Exam Present: tachycardia, irregularly irregular - Routine Abdominal Exam Present: soft, normoactive bowel sounds, non tender, distended - Routine Extremities Exam Present: clubbing, edema (trace), pulses intact, normal capillary refill - Routine Skin Exam Present: intact, dry, warm - Routine Neurological Exam Present: alert, oriented X3, moving all extremities, normal speech - Routine Psychiatric Exam Present: normal affect, normal thought process, cooperative Progress Note-A&P (1) Atrial fibrillation with RVR Status: Acute Assessment and plan: PO Cardizem decreased d/t constipation, add nebivolol for more cardioselective rate control if tolerated may go out to telemetry poor candidate for full anticoagulation d/t alcohol binging and falls , risk > benefit. cont ASA. Current Visit: Yes (2) Congestive heart failure (CHF) Status: Acute Assessment and plan: likely due to AFIB w RVR , improving with rate control. diuresing a little , wt down just over 1 Kg. since adm. add ARNOL for HTN and afterload reduction, monitor K /Cr. repeat CXR in am monitor BUN and serume CO2 /HCO3 levels draw ABG in am ,d/t high HCO3 ? contraction alkalosis vs. 2ry to CO2 retention ( less likely). check abd US for suspected acites. Current Visit: Yes (3) Coronary artery disease Status: Chronic Assessment and plan: free form angina. NL LVFX . medical Rx. cont low dose BB . add statin Rx d/t CAD. fasting lipids may be done outpt w PCp , would be more accurate. After long discussion with the patient it was determined that a heart cath is not the best option at this time due to high patient anxiety about the procedure and high patient risk d/t comorbidities. Patient was in agreement to proceed with medical management at this time until his respiratory function improves. Patient will undergo a Aliya stress nuclear scan in 2 weeks for risk stratification and f/u in my office to see me one week after the stress nuclear scan. Current Visit: Yes (4) Chronic obstructive pulmonary disease (COPD) Status: Chronic Current Visit: Yes (5) Chronic respiratory failure Status: Chronic Current Visit: Yes (6) DNR (do not resuscitate) Status: Chronic Current Visit: Yes - Time Spent With Patient Total time spent is greater than 50% in coordination of care (as documented) at patient's floor/unit and/or counseling patient: greater than 35 minutes Sepsis Assessment - Evaluation Sepsis screening result: No Definite Risk Hospital Course Summary Disclaimer: The visit summary below is not to be considered part of the above Progress Note.
[2017-03-16] MEDS ORDERED: LISINOPRIL 5 MG TABLET PO SCH (09:00)
--- NOTE | 2017-03-16 09:14 | XRay Report ---
INDICATION: chf PROCEDURE: CHEST 2-VIEWS UPRIGHT (PA & LAT) Encounter: Initial COMPARISON: CT angiogram of the chest dated March 14, 2017 FINDINGS: Bilateral mixed interstitial and airspace opacities are again seen, similar to the prior exam. No new or worsening consolidation. Small effusions. No pneumothorax Moderate enlargement of the cardiac silhouette. Mediastinal contours are stable. Pulmonary vascularity is indistinct. Impression: Continued interstitial and airspace abnormalities probably due to congestive failure without significant change. .
[2017-03-16] MEDS: TIOTROPIUM 18mcg/cap HANDIHALER ORAL INH SCH (09:19)
[2017-03-16] MEDS: LISINOPRIL 2.5 MG TABLET PO SCH (09:26)
[2017-03-16] MEDS: ASPIRIN 81 MG CHEWABLE TABLET PO SCH (09:26)
[2017-03-16] MEDS: ENOXAPARIN 40 MG/0.4 ML INJECTION SQ SCH (09:26)
[2017-03-16] MEDS: FUROSEMIDE 100 MG/10 ML INJECTION IVP SCH ×3 (09:29→21:26)
--- NOTE | 2017-03-16 11:15 | Progress Note ---
Subjective: Pt is doing well today, he states. Still has cough and is wheezing a bit. He states he will consent for a Cardiac cath. Objective Vital signs: Temperature 97.5 F 03/16/17 07:42 Pulse Rate 96 03/16/17 07:42 Respiratory Rate 22 03/16/17 10:35 Blood Pressure 131/75 03/16/17 07:42 Pulse Oximetry 95 03/16/17 10:35 Oxygen Delivery Method Nasal Cannula Oxygen Flow Rate 5 Rhythm: Normal Sinus Rhythm Weight: 137.2 kg - Constitutional Present: no acute distress - Routine HEENT Exam Head: Present: normocephalic, atraumatic Eye: Present: EOMI, PERRL - Routine Respiratory Exam Present: rhonchi, wheezes - Routine Cardiovascular Exam Present: RRR, irregularly irregular - Routine Abdominal Exam Present: soft, non distended, non tender - Routine Extremities Exam Absent: cyanosis, clubbing, edema - Routine Neurological Exam Present: alert, oriented X3, CN II-XII intact - Routine Psychiatric Exam Present: normal affect, cooperative, good insight, good judgment Results - Labs CBC & Chem 7: 03/15/17 03:52 03/16/17 04:40 - ABG Interpretation ABG results: 03/16/17 04:28 ABG pH 7.380 ABG pCO2 72 H* ABG pO2 58 L ABG HCO3 43 H ABG Total CO2 44.8 H ABG O2 Saturation 89.0 L ABG Base Excess 14.3 H Assessment and Plan Assessment and Plan: Summary: This pt was admitted to the hospital with new onset A fib with RVR. He was placed on cardizem drip, which lowered his rate to about 110 - on 03/13 at night his HR was dropping to the 40's on Cardizem and his drip was held. He had an episode of NSVT (03/13); at that time his K was a bit low, and was replaced. No new episodes of NSVT. Pt lives alone and states has no friends or significant family support; on admission he Denied being suicidal, but admits being depressed ( who would'nt be? - he told me). He states he is feeling well, still HR going up to the 140's. His regime was changed to oral medications (03/14 ) by Dr Conley (Staff Apartment Assistant Manager). Pt remains fairly tachycardic with HR going up to 150 with minor activity. Diagnosis 1) CHF with superimposed A fib + RVR. Still with rapid HR at present. CTA done ( 03/14) showed no evidence of PE. - Stop Nicotine patch - give 1 dose of IV ativan to see if HR goes down (H.O Alcohol abuse) - Cardizem CD 240 mg/day + Toprol XL 25 mg/day (Pt is wheezing still) - 2-D echo DONE - final results pending per Dr Conley verbal report - pt has good LVEF, has dilated R cavities ? of pulmonary HTN (Due to hypoxemia - COPD) and 2+ MR. - Denies any recent alcohol consumption; UDS was negative. Has had falls while on alcohol, last one per cardiology notes - 1 month ago. - Deemed a high risk of falls - per jewel hole finish opener recommendation no anticoagulation - will give ASA - TnI x 3 negative. - WIll be having a cardiac cath soon. 2) COPD exacerbation - with bronchitis - no PNA per CT chest. a) Tobacco abuse. - Stop nicotine patch due to high HR. - Continue Rocephin and Zithromax day # 4 - Respiratory pannel (PCR) negative. - Will add Montelukast 10 mg/day. - Pt has been exposed to Tobacco for 30 to 40 years and is O2 dependent at home with O2 at 4L/min. - Solu-Medrol dose decreased to 40 mg IV q 8 hours (03/14) + accuchecks and sliding scale coverage for high BS. - Will consider PFT's prior to D/C - Once more stable pt will need ABG on RA to re-qualify for O2. 3) Hyperthyroidism vs sick Euthyroid - TSH low - FT4 normal - Check T3, total free and rT3 4) ELADIA per pt he was given a CPAP - since he does not use his CPAP - pt may have established pulmonary HTN. - Pt states he was given a CPAP machine in the past but he will not use one. 5) Depression - due to ? medical condition ? - Not on any medications - - Not interested in taking any medications or having a psychiatrist see him. Prevention 2) Lovenox for DVT 3) Omeprazole. Patient desires to be DNR Sepsis Assessment - Evaluation Sepsis screening result: No Definite Risk Hospital Course Summary Disclaimer: The visit summary below is not to be considered part of the above Progress Note.
[2017-03-16] MEDS: SENNA + DOCUSATE TABLET PO SCH ×2 (14:32→21:20)
[2017-03-16] MEDS: POLYETHYL GLYCOL 3350 17gm PACKET PO PRN (14:32)
[2017-03-16] MEDS: MONTELUKAST 10 MG TABLET PO SCH (21:20)
[2017-03-16] MEDS: AZITHROMYCIN 250 MG TABLET PO SCH (21:20)
[2017-03-16] MEDS: ATORVASTATIN 20 MG TABLET PO SCH (21:20)
[2017-03-16] MEDS: CEFTRIAXONE 1 G in NS 100 ML IV SCH (21:22)
[2017-03-17] MEDS: METHYLPREDNISOLONE SOD SUCC 40mg/ml INJECTION IVP SCH ×3 (00:13→16:08)
[2017-03-17] MEDS: SALINE FLUSH 10ml SYRINGE IVF PRN ×4 (00:13→21:03)
[2017-03-17] MEDS: OMEPRAZOLE 20 MG CAPSULE PO SCH ×2 (06:40→16:08)
--- NOTE | 2017-03-17 08:33 | Cardiology Progress Note ---
Subjective Principal diagnosis: Atrial Fibrillation with RVR Interval history: Patient states that he had a very uneventful night and is feeling well today. He admits to orthopnea and slept partially inclined. His main concern continues to be the distension in his abdomen. He denies chest pain/pressure, palpitations , dizziness, and edema. He states that he feels like his breathing is about the same as yesterday or slightly improved. He reports having an episode of dyspnea early this morning around 530A. He also reports having dyspnea when he is up and moving around out of bed. Rhonchi and expiratory wheezes are still present on auscultation. His heart rate upon evaluation was well controlled at 74 bpm. Telemetry shows atrial fibrillation with RVR and one pause of 2.2 seconds during the night. Patient expresses that he is ready to go home. Exam Vital signs: Temperature 96.5 F L 03/17/17 07:48 Pulse Rate 74 03/17/17 07:48 Respiratory Rate 24 03/17/17 07:48 Blood Pressure 143/81 H 03/17/17 07:48 Pulse Oximetry 95 03/17/17 07:48 Oxygen Delivery Method Nasal Cannula Oxygen Flow Rate 4 - Constitutional no acute distress, well nourished, well developed, obese - Routine HEENT Exam Head: Present: normocephalic, atraumatic Eye: Present: EOMI ENT: Present: mucous membranes moist, oropharynx clear - Routine Neck Exam Present: supple, trachea midline. Absent: JVD, carotid bruit, lymphadenopathy, thyromegaly - Routine Respiratory Exam Present: rales (rare in bases . relatively clear. did get audibly wheezy when he laid down.) Comments: Expiratory wheezes - Routine Cardiovascular Exam Present: irregularly irregular - Routine Abdominal Exam Present: soft, normoactive bowel sounds, non tender, distended - Routine Extremities Exam Present: clubbing, edema (trace ), no edema, pulses intact, normal capillary refill. Absent: cyanosis - Routine Skin Exam Present: intact, dry, warm - Routine Neurological Exam Present: alert, oriented X3, moving all extremities, normal speech - Routine Psychiatric Exam Present: normal affect, normal thought process, cooperative, good insight Progress Note-A&P (1) Atrial fibrillation with RVR Status: Acute Assessment and plan: PO Cardizem decreased d/t constipation, add nebivolol for more cardioselective rate control if tolerated may go out to telemetry poor candidate for full anticoagulation d/t alcohol binging and falls , risk > benefit. cont ASA. had some tachycardia last night up to 160 on strip. he felt some palpiattions around noon when he got upset because of bills. no angina. just statrted on Bystolic yeserday p[aln outpt holter monitor next wk to assess rate control. plan oupt pt aliya/ strtess nuc scan ,after resp status is better , for risk startification of CAD, as pt wishes for more conservative approach of his CAD/ CHF/MR and opted out of heart cath at this time , but wouldnt rule it out in the future. rate generally better controlled today. need to see/assess HR w incraesed activity. Current Visit: Yes (2) Congestive heart failure (CHF) Status: Acute Assessment and plan: likely due to AFIB w RVR , improving with rate control. diuresing a little , wt down just over 1 Kg. since adm. add ARNOL for HTN and afterload reduction, monitor K /Cr. repeat CXR in am monitor BUN and serume CO2 /HCO3 levels draw ABG in am ,d/t high HCO3 ? contraction alkalosis vs. 2ry to CO2 retention ( less likely). check abd US no acites. tinnuous acid/base balance and chroniuc resp failure , limits more agressive diuresis. dw Dr Potts Current Visit: Yes (3) Coronary artery disease Status: Chronic Assessment and plan: free form angina. NL LVFX . medical Rx. cont low dose BB . add statin Rx d/t CAD. fasting lipids may be done outpt w PCp , would be more accurate. After long discussion with the patient it was determined that a heart cath is not the best option at this time due to high patient anxiety about the procedure and high patient risk d/t comorbidities. Patient was in agreement to proceed with medical management at this time until his respiratory function improves. Patient will undergo a Aliya stress nuclear scan in 2 weeks for risk stratification and f/u in my office to see me one week after the stress nuclear scan. Current Visit: Yes (4) Chronic obstructive pulmonary disease (COPD) Status: Chronic Current Visit: Yes (5) Chronic respiratory failure Status: Chronic Current Visit: Yes (6) DNR (do not resuscitate) Status: Chronic Current Visit: Yes - Time Spent With Patient Total time spent is greater than 50% in coordination of care (as documented) at patient's floor/unit and/or counseling patient: greater than 35 minutes Sepsis Assessment - Evaluation Sepsis screening result: No Definite Risk Hospital Course Summary Disclaimer: The visit summary below is not to be considered part of the above Progress Note.
[2017-03-17] MEDS: NICOTINE PATCH REMOVAL TD SCH (08:50)
[2017-03-17] MEDS: NICOTINE 21 MG PATCH TD SCH (08:50)
[2017-03-17] MEDS: ASPIRIN 81 MG CHEWABLE TABLET PO SCH (08:51)
[2017-03-17] MEDS: LISINOPRIL 2.5 MG TABLET PO SCH (08:51)
[2017-03-17] MEDS: FUROSEMIDE 100 MG/10 ML INJECTION IVP SCH ×2 (08:52→20:54)
[2017-03-17] MEDS: ENOXAPARIN 40 MG/0.4 ML INJECTION SQ SCH (08:53)
[2017-03-17] MEDS: SENNA + DOCUSATE TABLET PO SCH ×2 (08:53→20:55)
[2017-03-17] MEDS: TIOTROPIUM 18mcg/cap HANDIHALER ORAL INH SCH (09:21)
[2017-03-17] MEDS ORDERED: SIMETHICONE 125 MG CAPSULE PO SCH (11:00)
[2017-03-17] MEDS: INSULIN ASPART 100unit/ml INJECTION SQ PRN (11:35)
[2017-03-17] MEDS ORDERED: SIMETHICONE 80 MG CHEWABLE TABLET PO PRN (11:39)
[2017-03-17] MEDS: SIMETHICONE 125 MG CAPSULE PO SCH ×2 (16:08→20:55)
[2017-03-17] MEDS: LACTAID FAST TABLET PO SCH (17:12)
--- NOTE | 2017-03-17 18:11 | Progress Note ---
Subjective: Pt is states he wants to go home. Still with HR in the 140's at times and wheezing singificantly. He is still on IV steroids. Objective Vital signs: Temperature 97.4 F 03/17/17 15:56 Pulse Rate 75 03/17/17 16:00 Respiratory Rate 18 03/17/17 15:56 Blood Pressure 127/84 03/17/17 15:56 Pulse Oximetry 95 03/17/17 15:56 Oxygen Delivery Method Room Air Oxygen Flow Rate 4 Rhythm: Atrial Fibrillation with RVR Weight: 135.9 kg - Constitutional Present: no acute distress - Routine HEENT Exam Head: Present: normocephalic, atraumatic Eye: Present: EOMI, PERRL - Routine Respiratory Exam Present: CTA bilaterally - Routine Cardiovascular Exam Present: RRR, S1, S2 - Routine Abdominal Exam Present: soft, normoactive bowel sounds, non distended, non tender - Routine Extremities Exam Present: edema. Absent: cyanosis, clubbing - Routine Musculoskeletal Exam Musculoskeletal: Present: no clubbing or cyanosis - Routine Skin Exam Present: intact. Absent: cyanosis - Routine Neurological Exam Present: alert, oriented X3, CN II-XII intact - Routine Psychiatric Exam Present: normal affect, good insight, good judgment Results - Labs CBC & Chem 7: 03/15/17 03:52 03/16/17 04:40 - ABG Interpretation ABG results: 03/16/17 04:28 ABG pH 7.380 ABG pCO2 72 H* ABG pO2 58 L ABG HCO3 43 H ABG Total CO2 44.8 H ABG O2 Saturation 89.0 L ABG Base Excess 14.3 H Assessment and Plan Assessment and Plan: Summary: This pt was admitted to the hospital with new onset A fib with RVR. He was placed on cardizem drip, which lowered his rate to about 110 - on 03/13 at night his HR was dropping to the 40's on Cardizem and his drip was held. He had an episode of NSVT (03/13); at that time his K was a bit low, and was replaced. No new episodes of NSVT. Pt lives alone and states has no friends or significant family support; on admission he Denied being suicidal, but admits being depressed ( who would'nt be? - he told me). He states he is feeling well, still HR going up to the 140's. His regime was changed to oral medications (03/14 ) by Dr Conley (Staff Crop Specialist). Pt HR is slowly coming down as his medication levels become more stable. Diagnosis 1) CHF with superimposed A fib + RVR. Still with rapid HR at present. CTA done ( 03/14) showed no evidence of PE. - Cardizem CD 240 mg/day + Nevibolol 10mg/day - 2-D echo DONE - final results pending per Dr Conley verbal report - pt has good LVEF, has dilated R cavities ? of pulmonary HTN (Due to hypoxemia - COPD) and 2+ MR. - Denies any recent alcohol consumption; UDS was negative. Has had falls while on alcohol, last one per cardiology notes - 1 month ago. - Deemed a high risk of falls - per employee services manager recommendation no anticoagulation - will give ASA - TnI x 3 negative. - Will be having an outpatient nuclear stress test for risk stratification. 2) COPD exacerbation - with bronchitis - no PNA per CT chest. a) Tobacco abuse. - Continue Rocephin and Zithromax day # 5 - Respiratory pannel (PCR) negative. - Added Montelukast 10 mg/day (03/16) - Pt has been exposed to Tobacco for 30 to 40 years and is O2 dependent at home with O2 at 4L/min. - Will stop IV steroids anticipating pt may try to leave tomorrow. - Will consider PFT's prior to D/C 3) Hyperthyroidism vs sick Euthyroid - TSH low - FT4 normal - Check T3, total free and rT3 4) ELADIA per pt he was given a CPAP - since he does not use his CPAP - pt may have established pulmonary HTN. - Pt states he was given a CPAP machine in the past but he will not use one. 5) Depression - due to ? medical condition ? - Not on any medications - - Not interested in taking any medications or having a psychiatrist see him. Prevention 2) Lovenox for DVT 3) Omeprazole. Patient desires to be DNR Sepsis Assessment - Evaluation Sepsis screening result: No Definite Risk Hospital Course Summary Disclaimer: The visit summary below is not to be considered part of the above Progress Note.
[2017-03-17] MEDS: ALBUTEROL 2.5mg/0.5ml (0.5%) NEB AEROSOL SCH (20:17)
[2017-03-17] MEDS: CEFTRIAXONE 1 G in NS 100 ML IV SCH (20:54)
[2017-03-17] MEDS: AZITHROMYCIN 250 MG TABLET PO SCH (20:55)
[2017-03-17] MEDS: MONTELUKAST 10 MG TABLET PO SCH (21:03)
[2017-03-17] MEDS: ATORVASTATIN 20 MG TABLET PO SCH (21:03)
[2017-03-18] MEDS: ALBUTEROL 2.5mg/0.5ml (0.5%) NEB AEROSOL SCH ×5 (00:17→14:51)
[2017-03-18] MEDS: INSULIN ASPART 100unit/ml INJECTION SQ PRN ×2 (00:52→12:16)
[2017-03-18] MEDS: SIMETHICONE 125 MG CAPSULE PO SCH ×4 (03:54→21:02)
[2017-03-18] MEDS: OMEPRAZOLE 20 MG CAPSULE PO SCH ×2 (06:23→16:34)
[2017-03-18] MEDS ORDERED: PredniSONE 20 MG TABLET PO SCH (08:00)
[2017-03-18] MEDS: LISINOPRIL 2.5 MG TABLET PO SCH (08:11)
[2017-03-18] MEDS: ASPIRIN 81 MG CHEWABLE TABLET PO SCH (08:12)
[2017-03-18] MEDS: SENNA + DOCUSATE TABLET PO SCH ×2 (08:12→21:02)
[2017-03-18] MEDS: LACTAID FAST TABLET PO SCH ×3 (08:12→16:34)
[2017-03-18] MEDS: FUROSEMIDE 100 MG/10 ML INJECTION IVP SCH (08:12)
[2017-03-18] MEDS: ENOXAPARIN 40 MG/0.4 ML INJECTION SQ SCH (08:12)
[2017-03-18] MEDS: NICOTINE 21 MG PATCH TD SCH (08:13)
[2017-03-18] MEDS: NICOTINE PATCH REMOVAL TD SCH (08:13)
[2017-03-18] MEDS: TIOTROPIUM 18mcg/cap HANDIHALER ORAL INH SCH (09:50)
--- NOTE | 2017-03-18 16:54 | Progress Note ---
Subjective: Pt states he is feeling well and wants to go home. Telemetry shows is still on a fib with RVR rate ranging from the low 100's to the mid 120's. He walked about 100 feet, had to stop when he had ambulated about 60 feet. HR went up to range of 140 to 165. Pt stated he had lower extremity discomfort with ambulation. His SOB at rest is less, he is not tachypneic and his wheezing has improved a lot. Objective Vital signs: Temperature 97.7 F 03/18/17 07:00 Pulse Rate 115 H 03/18/17 07:00 Respiratory Rate 16 03/18/17 14:45 Blood Pressure 141/85 H 03/18/17 07:00 Pulse Oximetry 95 03/18/17 14:45 Oxygen Delivery Method Nasal Cannula Oxygen Flow Rate 4 Rhythm: Atrial Fibrillation with RVR Weight: 135.9 kg - Constitutional Present: mild distress - Routine HEENT Exam Head: Present: normocephalic, atraumatic Eye: Present: EOMI, PERRL - Routine Respiratory Exam Present: wheezes, diminished air movement Comments: Wheezing is much less today - barely detectable on exam. - Routine Cardiovascular Exam Present: irregular rhythm - Routine Abdominal Exam Present: distended - Routine Extremities Exam Absent: cyanosis, clubbing - Routine Neurological Exam Present: alert, oriented X3, CN II-XII intact - Routine Psychiatric Exam Present: normal affect, cooperative, good insight, good judgment Results - Labs CBC & Chem 7: 03/18/17 10:13 03/18/17 10:13 - ABG Interpretation ABG results: 03/16/17 04:28 ABG pH 7.380 ABG pCO2 72 H* ABG pO2 58 L ABG HCO3 43 H ABG Total CO2 44.8 H ABG O2 Saturation 89.0 L ABG Base Excess 14.3 H Assessment and Plan DVT Prophylaxis: Lovenox GI Prophylaxis: other Resuscitation Status: Do Not Resuscitate Assessment and Plan: Summary: This pt was admitted to the hospital with new onset A fib with RVR. He was placed on cardizem drip, which lowered his rate to about 110 - on 03/13 at night his HR was dropping to the 40's on Cardizem and his drip was held. He had an episode of NSVT (03/13); at that time his K was a bit low, and was replaced. No new episodes of NSVT. Pt lives alone and states has no friends or significant family support; on admission he Denied being suicidal, but admits being depressed ( who would'nt be? - he told me). He states he is feeling well, still HR going up to the 140's. His regime was changed to oral medications (03/14 ) by Dr Lunsford (Staff [employer] Special Agent). Pt still has rapid HR with resting HR from the low 100's to the mid 120's that increased with ambulation to the 140 to 165 range. Pt was SOB with activity but had no Angina. He appears to be bothered with abdominal distention. U/S did not show ascites. He states all this is "gas and shit". Diagnosis 1) CHF with superimposed A fib + RVR. Still with rapid HR at present. CTA done ( 03/14) showed no evidence of PE. Discussed with [employer] Special Agent - meds will be titrated up and will observe x 24 more hrs. 2-D echo (Dr Lunsford - Staff soft sugar cutter) "......................................... IMPRESSION 1. Severe left atrial enlargement. 2. Concentric LVH with preserved systolic function, EF about 60%. 3. Right atrial enlargement and possible mild right ventricular enlargement with preserved systolic function. 4. Severe pulmonary hypertension. 5. Elevated central venous pressure. 6. Moderate mitral regurgitation (eccentric, directed posteriorly) cannot rule out ischemic MR. 7. Aortic valve sclerosis without stenosis. 8. Mild to moderate tricuspid regurgitation. 9. Patient is in atrial fibrillation with intermittent tachycardia. ...................................................." - Cardizem CD 240 mg/day + Nevibolol 10mg/day - Denies any recent alcohol consumption; UDS was negative. Has had falls while on alcohol, last one per cardiology notes - 1 month ago. - Deemed a high risk of falls - per soft sugar cutter recommendation no anticoagulation - will give ASA - TnI x 3 negative (Done on admission). - Will be having an outpatient nuclear stress test for risk stratification. 2) COPD exacerbation - with bronchitis - no PNA per CT chest. Pt has ELADIA and does not comply with his CPAP machine. ABG shows chronic CO2 retention that is compensated; unfortunately he continues to smoke. - Stop IV antibiotics (Today is day 6) No fever or elevated WBC count. - Respiratory panel (Viral - done on admission - PCR) negative. - Added Montelukast 10 mg/day (03/16) -> wheezing decreased on 03/18 - will continue weaning PO steroids. - Pt has been exposed to Tobacco for 30 to 40 years and is O2 dependent at home with O2 at 4L/min; he has no plans to D/C Smoking. - I faxed requested Rx for O2 to [facility] and filled needed paperwork with our high school social science teacher. 3) Abnormal TFT's possibly sick Euthyroid. Would need to be rechecked in 8 to 12 weeks. - TSH low - FT4 normal - T3 - LINDA - 53 (LOW) - FT3 - 2.67 (LOW) 4) ELADIA per pt he was given a CPAP - since he does not use his CPAP - pt may have established pulmonary HTN. - Pt states he was given a CPAP machine in the past but he will not use one. 5) Abdominal discomfort - could be related to hepatic capsule distention - due to pulmonary HTN. Pt not interest in pursuing any further diagnostic testing states he takes care at home by using large ammounts of [employer]. 6) Depression - due to ? medical condition ? ED (probably related to his obesity and other diseases - but he states has had ED x 30 years) - Check Testosterone, PSA, prolactin. - Not on any medications for depression; Not interested in taking any medications or having a psychiatrist see him. 7) Code Status - DNR per pt request. PENDING LABS REVERSE T3 WILL ORDER BMP ONE WEEK AND F/U WITH PCP. DR LUNSFORD WILL FOLLOW PT WITH A HOTER IN ONE WEEK, NPI - IN 2 TO 3 WEEKS. Prevention 1) Lovenox for DVT 2) Omeprazole. - Time spent with patient 25 - 35 minutes Sepsis Assessment - Evaluation Sepsis screening result: No Definite Risk Hospital Course Summary Disclaimer: The visit summary below is not to be considered part of the above Progress Note.
--- NOTE | 2017-03-18 17:18 | Cardiology Progress Note ---
Subjective Principal diagnosis: Atrial Fibrillation with RVR Interval history: pt is feeling better. took a good walk w SOA at the end. his HR went up 140-160' s , coming down as he s settling down. denies cp. very anxious to go home. agreed to stay another day. had some palpiations last night when he got upset. verbelaized understanding of his short term and bilingual trainer prognosis, as i gave him my opinion,. says he breathes easier laying down and toelrated supine position for 2 min well , in front of me w/o orthopnea. Exam Vital signs: Temperature 97.4 F 03/18/17 16:00 Pulse Rate 66 03/18/17 16:00 Respiratory Rate 20 03/18/17 16:00 Blood Pressure 124/70 03/18/17 16:00 Pulse Oximetry 95 03/18/17 16:00 Oxygen Delivery Method Nasal Cannula Oxygen Flow Rate 4 - Constitutional mild distress - Routine HEENT Exam Head: Present: normocephalic, atraumatic Eye: Present: EOMI, PERRL. Absent: scleral injection ENT: Present: mucous membranes moist - Routine Neck Exam Absent: JVD, lymphadenopathy - Routine Respiratory Exam Present: rales (occ. bessie. L base), wheezes (few bibasilar ) - Routine Cardiovascular Exam Present: tachycardia, irregularly irregular. Absent: RRR - Routine Abdominal Exam Present: soft, normoactive bowel sounds - Routine Extremities Exam Present: edema (trace). Absent: cyanosis, clubbing - Routine Neurological Exam Present: alert, oriented X3, CN II-XII intact. Absent: motor deficit - Routine Psychiatric Exam Present: normal affect Progress Note-A&P (1) Atrial fibrillation with RVR Status: Acute Assessment and plan: PO Cardizem decreased d/t constipation, add nebivolol for more cardioselective rate control if tolerated may go out to telemetry poor candidate for full anticoagulation d/t alcohol binging and falls , risk > benefit. cont ASA. inmcraese Nebivolol 20 mg daily fro better HR control. ok to switch to PO Lasix I'll follow him PRN at this point. plan for outpt holter monitor next wk to reassess rate control. outpt MPI then ov. condition appears improved. call me PRN please Current Visit: Yes (2) Congestive heart failure (CHF) Status: Acute Assessment and plan: likely due to AFIB w RVR , improving with rate control. diuresing a little , wt down just over 1 Kg. since adm. add ARNOL for HTN and afterload reduction, monitor K /Cr. repeat CXR in am monitor BUN and serume CO2 /HCO3 levels draw ABG in am ,d/t high HCO3 ? contraction alkalosis vs. 2ry to CO2 retention ( less likely). check abd US for suspected acites. Current Visit: Yes (3) Coronary artery disease Status: Chronic Assessment and plan: free form angina. NL LVFX . medical Rx. cont low dose BB . add statin Rx d/t CAD. fasting lipids may be done outpt w PCp , would be more accurate. After long discussion with the patient it was determined that a heart cath is not the best option at this time due to high patient anxiety about the procedure and high patient risk d/t comorbidities. Patient was in agreement to proceed with medical management at this time until his respiratory function improves. Patient will undergo a Aliya stress nuclear scan in 2 weeks for risk stratification and f/u in my office to see me one week after the stress nuclear scan. Current Visit: Yes (4) Chronic obstructive pulmonary disease (COPD) Status: Chronic Current Visit: Yes (5) Chronic respiratory failure Status: Chronic Current Visit: Yes (6) DNR (do not resuscitate) Status: Chronic Current Visit: Yes - Time Spent With Patient Total time spent is greater than 50% in coordination of care (as documented) at patient's floor/unit and/or counseling patient: 25 - 35 minutes Sepsis Assessment - Evaluation Sepsis screening result: No Definite Risk Hospital Course Summary Disclaimer: The visit summary below is not to be considered part of the above Progress Note.
[2017-03-18] MEDS: NICOTINE 7 MG PATCH TD SCH (18:39)
[2017-03-18] MEDS: ATORVASTATIN 20 MG TABLET PO SCH (21:02)
[2017-03-18] MEDS: MONTELUKAST 10 MG TABLET PO SCH (21:02)
[2017-03-18] MEDS: SALINE FLUSH 10ml SYRINGE IVF PRN (21:05)
[2017-03-19] MEDS: SIMETHICONE 125 MG CAPSULE PO SCH ×2 (02:45→08:41)
[2017-03-19] MEDS: OMEPRAZOLE 20 MG CAPSULE PO SCH (06:23)
[2017-03-19] MEDS ORDERED: PredniSONE 10 MG TABLET PO SCH (08:00)
[2017-03-19 08:27] VITALS: BP 128/89; PULSE 82; TEMP 95.8; O2SAT 94
[2017-03-19 08:36] VITALS: RESP 22
[2017-03-19] MEDS: ASPIRIN 81 MG CHEWABLE TABLET PO SCH (08:40)
[2017-03-19] MEDS: SENNA + DOCUSATE TABLET PO SCH (08:41)
[2017-03-19] MEDS: LISINOPRIL 2.5 MG TABLET PO SCH (08:41)
[2017-03-19] MEDS: LACTAID FAST TABLET PO SCH ×2 (08:41→11:51)
[2017-03-19] MEDS: NICOTINE 7 MG PATCH TD SCH (08:42)
[2017-03-19] MEDS: ENOXAPARIN 40 MG/0.4 ML INJECTION SQ SCH (08:42)
[2017-03-19] MEDS ORDERED: FUROSEMIDE 40 MG TABLET PO SCH (09:00)
[2017-03-19] MEDS ORDERED: NICOTINE PATCH REMOVAL TD SCH (09:00)
[2017-03-19] MEDS: TIOTROPIUM 18mcg/cap HANDIHALER ORAL INH SCH (11:46)
--- NOTE | 2017-03-19 14:13 | Discharge Instructions ---
Discharge Plan - Med Rec/Dispo Referrals/Follow Up: Venkata Escobar MD [Primary Care Provider] - [facility] Instructions: A-fib (Atrial Fibrillation) (GEN), COPD (Chronic Obstructive Pulmonary Disease) (GEN) Prescriptions: New Simethicone [Phazyme] 125 mg PO Q6HR #120 capsule Aspirin Chewable [ASA] 81 mg PO DAILY tab.chew Budesonide/Formoterol 160/4.5 [Symbicort Inhaler] 2 puff ORAL INH RTBID #1 inhaler NS DiltiaZEM CD [Cardizem Cd] 240 mg PO DAILY #30 capsule Furosemide [Lasix] 40 mg PO 0900,1700 #60 tablet Lisinopril [Prinivil] 2.5 mg PO DAILY #30 tablet Montelukast [Singulair] 10 mg PO HS #30 tablet Nebivolol [Bystolic] 20 mg PO DAILY #120 tablet PredniSONE [Deltasone] 10 mg PO WB #3 tablet Atorvastatin [Lipitor] 20 mg PO HS #30 tablet Lactase [Lactaid Fast Act] 2 tab PO TIDWM #180 tablet Senna + Docusate [Senna Plus Tablet] 1 tab PO BID tablet Continue Ipratropium/Albuterol Sulfate [Iprat-Albut 0.5-3(2.5) mg/3 ml] 1 vial AEROSOL Q6H PRN #0 PRN Reason: SHORTNESS OF AIR Ginkgo Biloba tab PO TID #0 Potassium Chloride ER Tab [K-Dur] 20 meq PO BID #60 tablet Albuterol Sulfate [Ventolin Hfa] 1 - 2 puff ORAL INH Q6H PRN #0 PRN Reason: SHORTNESS OF AIR/WHEEZING L.acidoph,Paracasei, B.lactis [Probiotic] 1 cap PO DAILY #0 Discontinued Furosemide 120 mg PO DAILY #0 PredniSONE [Deltasone] 20 mg PO PER COMMENTS #15 tab Levalbuterol HCl [Xopenex] 1 vial AEROSOL QID #60 vial Ibuprofen 800 mg PO Q4H PRN #0 PRN Reason: PAIN - Disposition 01 Discharged Home, Self-Care
--- NOTE | 2017-03-19 14:33 | Discharge Summary ---
Discharge Information Date of admission: 03/13/17 02:10 Attending Physician: German Potts MD Primary care physician: Venkata Escobar MD Consults: 03/13/17 09:04 Dietary Consult [CONS] Routine Comment: Reason For Exam: - Discharge Diagnosis Discharge Diagnosis: Summary: This pt was admitted to the hospital with new onset A fib with RVR. He was placed on cardizem drip, which lowered his rate to about 110 - on 03/13 at night his HR was dropping to the 40's on Cardizem and his drip was held. He had an episode of NSVT (03/13); at that time his K was a bit low, and was replaced. No new episodes of NSVT. Pt lives alone and states has no friends or significant family support; on admission he Denied being suicidal, but admits being depressed ( who would'nt be? - he told me). He was transfered to the Medical floor (Telemetry) 72 hrs ago, his meds were adjusted and now his resting HR is between 90 and 110. He was ambulated this AM by his RN and HR went up to the 120's. Breathing has imrpoved pt is approaching his baseline. still HR going up to the 140's. Dr Conley (Staff Chief Embalmer), changed his BB to Nevibolol and he is tolerating it very well. 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 (Valvular A-Fib - pt has MR) - Still with rapid HR on admission - today rate is improved. CTA done (03/14) showed no evidence of PE. - Will have a holter with Dr Conley in 1 week - NST in 2 to 3 weeks. 2-D echo (Dr Conley - Staff director hr communications) "......................................... IMPRESSION 1. Severe left atrial enlargement. 2. Concentric LVH with preserved systolic function, EF about 60%. 3. Right atrial enlargement and possible mild right ventricular enlargement with preserved systolic function. 4. Severe pulmonary hypertension. 5. Elevated central venous pressure. 6. Moderate mitral regurgitation (eccentric, directed posteriorly) cannot rule out ischemic MR. 7. Aortic valve sclerosis without stenosis. 8. Mild to moderate tricuspid regurgitation. 9. Patient is in atrial fibrillation with intermittent tachycardia. ...................................................." - Cardizem CD 240 mg/day + Nevibolol 20mg/day - gave RX x 1 month - Deemed a high risk of falls - per director hr communications recommendation no anticoagulation - will give ASA - TnI x 3 negative (Done on admission). 2) COPD exacerbation - pt has O2 dependency unfortunately continues to smoke - bronchitis resolved - no PNA per CT chest. Pt has ELADIA and does not comply with his CPAP machine. ABG shows chronic CO2 retention that is compensated; unfortunately he continues to smoke. - Stop IV antibiotics (Today is day 6) No fever or elevated WBC count. - Respiratory panel (Viral - done on admission - PCR) negative. - Added Montelukast 10 mg/day (03/16) -> No wheezing today - Pt has been exposed to Tobacco for 30 to 40 years and is O2 dependent at home with O2 at 4L/min; he has no plans to D/C Smoking. - I faxed requested Rx for O2 to [facility] and filled needed paperwork with our social contact worker. 3) Abnormal TFT's possibly sick Euthyroid. Would need to be rechecked in 8 to 12 weeks. - TSH low - FT4 normal - T3 - LINDA - 53 (LOW) - FT3 - 2.67 (LOW) 4) ELADIA per pt he was given a CPAP - since he does not use his CPAP - pt may have established pulmonary HTN. - Pt states he was given a CPAP machine in the past but he will not use one. 5) Abdominal discomfort - could be related to hepatic capsule distention - due to pulmonary HTN. Pt not interest in pursuing any further diagnostic testing states he takes care at home by using large ammounts of Gaviscon. 6) Depression - due to ? medical condition ? ED (probably related to his obesity and other diseases - but he states has had ED x 30 years) - Check Testosterone, PSA, prolactin. - Not on any medications for depression; Not interested in taking any medications or having a psychiatrist see him. - If hypogonadal - Would need to comply with CPAP if Testosterone replacement is required. 7) Code Status - DNR per pt request. PENDING LABS REVERSE T3 TESTOSTERONE LEVEL PSA PROLACTIN. WILL ORDER BMP ONE WEEK AND F/U WITH PCP. DISPOSITION -HOME. - Laboratory Labs: 03/19/17 03:49 03/19/17 03:49 History of Present Illness HPI: This is a 66 y/o w/ h/o COPD, CHF and multiple other medical issues who presents to ED w/ cc of 3 day h/o worsening cough, shortness of breath and wheezing. Patient states using "puffers" of albuterol at home frequently yesterday and then given neb alb en route and in ER noted to be in AFib RVR w/ rate varying from 90s - 160s. EKG showed Afib w/ rate of 150. Patient on 4 L /min O2 continuously and sats have been stable. Patient denies f/c/s, denies cp , diaphoresis, de luna and n/v. Patient has h/o COPD exacerbations in the past. CXR in ER suspicous for LLL infiltrate though not well visualized - per prelim report. In ER patient started on Azithromycin and Ceftriaxone and given Solu- Medrol 125mg IV x one and also Cardizem 10mg IV bolus and started on Cardizem gtt. Patient states has no recollection of Afib in the past. Patient in Unit states he is breathing "much better". O2 sats unchanged. Patient admitted to the Hospitalist service for futher eval and management. Objective Vital signs: Temperature 95.8 F L 03/19/17 08:00 Pulse Rate 82 03/19/17 08:00 Respiratory Rate 22 03/19/17 08:05 Blood Pressure 128/89 03/19/17 08:00 Pulse Oximetry 94 03/19/17 08:00 Oxygen Delivery Method Nasal Cannula Oxygen Flow Rate 4 Rhythm: Atrial Fibrillation with RVR Weight: 135.2 kg - Constitutional Present: no acute distress, obese - Routine HEENT Exam Head: Present: normocephalic, atraumatic Eye: Present: EOMI, PERRL - Routine Respiratory Exam Present: distant breath sounds - Routine Cardiovascular Exam Present: irregular rhythm - Routine Abdominal Exam Present: soft, non distended, non tender - Routine Extremities Exam Absent: cyanosis, clubbing, edema - Routine Neurological Exam Present: alert, oriented X3, CN II-XII intact - Routine Lymphatic Exam Lymphatic: Absent: adenopathy - Routine Psychiatric Exam Present: normal affect, cooperative, good insight, good judgment Hospital Course This is a general summary of the patient's hospital course. For more details refer to the complete medical record. Discharge Plan - Med Rec/Dispo Referrals/Follow Up: Venkata Escobar MD [Primary Care Provider] - [facility] Instructions: A-fib (Atrial Fibrillation) (GEN), COPD (Chronic Obstructive Pulmonary Disease) (GEN) Prescriptions: New Simethicone [Phazyme] 125 mg PO Q6HR #120 capsule Aspirin Chewable [ASA] 81 mg PO DAILY tab.chew Budesonide/Formoterol 160/4.5 [Symbicort Inhaler] 2 puff ORAL INH RTBID #1 inhaler NS DiltiaZEM CD [Cardizem Cd] 240 mg PO DAILY #30 capsule Furosemide [Lasix] 40 mg PO 0900,1700 #60 tablet Lisinopril [Prinivil] 2.5 mg PO DAILY #30 tablet Montelukast [Singulair] 10 mg PO HS #30 tablet Nebivolol [Bystolic] 20 mg PO DAILY #120 tablet PredniSONE [Deltasone] 10 mg PO WB #3 tablet Atorvastatin [Lipitor] 20 mg PO HS #30 tablet Lactase [Lactaid Fast Act] 2 tab PO TIDWM #180 tablet Senna + Docusate [Senna Plus Tablet] 1 tab PO BID tablet Continue Ipratropium/Albuterol Sulfate [Iprat-Albut 0.5-3(2.5) mg/3 ml] 1 vial AEROSOL Q6H PRN #0 PRN Reason: SHORTNESS OF AIR Ginkgo Biloba tab PO TID #0 Potassium Chloride ER Tab [K-Dur] 20 meq PO BID #60 tablet Albuterol Sulfate [Ventolin Hfa] 1 - 2 puff ORAL INH Q6H PRN #0 PRN Reason: SHORTNESS OF AIR/WHEEZING L.acidoph,Paracasei, B.lactis [Probiotic] 1 cap PO DAILY #0 Discontinued Furosemide 120 mg PO DAILY #0 PredniSONE [Deltasone] 20 mg PO PER COMMENTS #15 tab Levalbuterol HCl [Xopenex] 1 vial AEROSOL QID #60 vial Ibuprofen 800 mg PO Q4H PRN #0 PRN Reason: PAIN - Disposition 01 Discharged Home, Self-Care
[2017-03-19] MEDS ORDERED: PNEUMOCOCCAL VAC ADMIN CHARGE INJ ONE (15:29)
== END 2017-03-19 15:30 | disposition home or self-care (01) | DRG 191 ==
LOC: ED 00:40 → CCU 02:10 → MED 03-15 18:33
PROVIDERS: ADMIT Internal Medicine; ATTEND Internal Medicine

== ENCOUNTER 2017-08-28 00:19 | Inpatient (IN) ==
--- NOTE | 2017-08-28 00:35 | Emergency Department Report ---
General Adult HPI - General Stated complaint: Chronic Edema Time Seen by Provider: 08/28/17 00:34 Source: patient, EMS Mode of arrival: EMS Limitations: no limitations - History of Present Illness HPI narrative: 67-year-old male presents to the emergency department with a chief complaint of bilateral lower extremity swelling and noncompliance with medications. Patient denies any pain or discomfort. Patient noted onset of symptoms approximately 2 weeks ago. He was at home when his symptoms began. Symptoms have been persistent in nature since onset. He has no other complaints or associated symptoms. Patient has a history of similar symptoms in the past with exacerbation of atrial fibrillation and congestive heart failure. Patient sees Dr. Abdoul Conley as his cherry dipper. Patient does use nasal cannula at all times at home at 3-4 L. - Related Data Home Medications Medication Instructions Recorded Confirmed Albuterol Sulfate [Ventolin Hfa] 1 - 2 puff ORAL INH Q6H PRN #0 01/22/16 Ginkgo Biloba tab PO TID #0 01/22/16 Ipratropium/Albuterol Sulfate 1 vial AEROSOL Q6H PRN #0 01/22/16 08/28/17 [Iprat-Albut 0.5-3(2.5) mg/3 ml] L.acidoph,Paracasei, B.lactis 1 cap PO DAILY #0 01/22/16 08/28/17 [Probiotic] Previous Rx's Medication Instructions Recorded Aspirin Chewable [ASA] 81 mg PO DAILY tab.chew 03/19/17 Atorvastatin [Lipitor] 20 mg PO HS #30 tab 03/19/17 Budesonide/Formoterol 160/4.5 2 puff ORAL INH RTBID #1 inhaler NS 03/19/17 [Symbicort Inhaler] DiltiaZEM CD [Cardizem Cd] 240 mg PO DAILY #30 cap 03/19/17 Furosemide [Lasix] 40 mg PO 0900,1700 #60 tab 03/19/17 Lactase [Lactaid Fast Act] 2 tab PO TIDWM #180 tab 03/19/17 Lisinopril [Prinivil] 2.5 mg PO DAILY #30 tab 03/19/17 Montelukast [Singulair] 10 mg PO HS #30 tab 03/19/17 Nebivolol [Bystolic] 20 mg PO DAILY #120 tab 03/19/17 Potassium Chloride [K-Dur] 20 meq PO BID #60 tab 03/19/17 PredniSONE [Deltasone] 10 mg PO WB #3 tab 03/19/17 Senna + Docusate [Senna Plus 1 tab PO BID tab 03/19/17 Tablet] Simethicone [Phazyme] 125 mg PO Q6HR #120 cap 03/19/17 Allergies Allergy/AdvReac Type Severity Reaction Status Date / Time No Known Allergies Allergy Verified 08/28/17 02:45 Review of Systems Constitutional: Denies: fever, chills Eyes: Denies: eye pain, vision change ENT: Denies: ear pain, throat pain Cardiovascular: Denies: chest pain, palpitations Respiratory: Denies: cough, dyspnea Gastrointestinal: Denies: abdominal pain, nausea, vomiting, diarrhea Genitourinary: Denies: urgency, dysuria Musculoskeletal: Denies: back pain, arthralgia Integumentary: Reports: swelling. Denies: erythema, rash Neurological: Denies: headache, numbness Psychiatric: Denies: anxiety, depression Endocrine: Denies: fatigue, heat or cold intolerance Hematological/Lymphatic: Denies: easy bleeding, easy bruising Allergic/Immunologic: Denies: facial swelling, urticaria PFSH Patient Stated Medical History Cardiac Arrhythmia Yes Congestive Heart Failure Yes Chronic Obstructive Pulmonary Yes Disease (COPD) Other GI constipation Hx Benign Prostatic Yes Hyperplasia Hx Kidney Stones Yes Surgical History: Negative per patient. Family History: Reviewed and Noncontributory. - Social History Smoking status: Current every day smoker Substance use type: does not use Alcohol intake frequency: does not drink Physical Exam - Limitations Limitations: no limitations - General General appearance: alert, in no apparent distress - Normal Exams: Head:: Normocephalic without trauma Eyes:: Pupils are PERRLA w/ EOMI, No scleral icterus, irritation, or foreign bodies noted ENMT:: No facial trauma, nasal exudates, pharyngeal erythema, or exudates are noted Dental: No fractured, loose, or missing teeth noted Neck:: Full range of motion, without adenopathy, JVD, bruits or thyromegaly Chest/Respirations:: Clear all hogan, with good airflow, and symmetry bilaterally Cardiovascular:: without murmur or gallop (Irregularly Irregular.), Pulses 2+ all extremities, capillary refill, <2 seconds all extremities Abdomen:: Bowel sounds positive, soft, non-tender, non-distended, no hepatosplenomegaly, masses or bruits noted Lymphatic:: No lymphadenopathy, or lymphedema noted Musculoskeletal:: No tenderness, or deformity noted, good range of motion, all extremities Integumentary:: No rashes, hives, or bruising noted, hair and nails, without abnormality Neurological:: Patient is alert, and oriented, cranial nerves, motor/sensory/ cerebellar, exams w/o gross deficits, to observation Psychiatric:: Patient exhibits, appropriate attention, emotion and affect Course Vital Signs Pulse Rate 157 H 08/28/17 00:19 Respiratory Rate 24 08/28/17 00:19 Blood Pressure 117/64 08/28/17 00:19 Pulse Oximetry 97 08/28/17 00:19 Pulse Rate 156 H 08/28/17 03:03 Respiratory Rate 24 08/28/17 00:19 Blood Pressure 117/64 08/28/17 00:19 Pulse Oximetry 97 08/28/17 00:19 Medical Decision Making - [facility] Narrative Medical decision making narrative: Labs/imaging were discussed in detail with the patient and questions are answered. Patient was given digoxin 500 micrograms intravenously times one. Cardizem bolus and drip were initiated. Patient is discussed with his cherry dipper Dr. Abdoul Conley who is in agreement with the current plan of management. Patient is admitted to the CCU in improved condition. Patient is also ordered Eliquis 5 mg by mouth times one. Fluids will be restricted due to the patient being in a congestive heart failure exacerbation. Patient is admitted to the CCU in improved condition after discussion with Dr. Paty Dowd the hospitalist and admitted to the service of Dr. Valadez. Dr. Abdoul Conley will be consulted from cardiology. No further orders from consulting or accepting physicians who are in agreement with the current plan of management. Diuresis will be handled by Cardiology. Temp: 98.4 F. - Differential Diagnosis Afib, metabolic disorder, med. noncompliance, CHF - Lab Data Result diagrams: 08/28/17 01:09 08/28/17 01:09 Lab Results 08/28/17 08/28/17 Range/Units 01: 01:09 WBC 10.2 (4.5-11.0) T/MM3 RBC 4.30 L (4.50-5.90) M/MM3 Hgb 13.6 (13.5-17.5) GM/DL Hct 43.8 (41-53) % MCV 101.9 H (80-100) UM3 MCH 31.6 (26-34) UUG MCHC 31.1 (31-37) GM/DL RDW Std Deviation 59.8 H (36.9-50.2) FL Plt Count 184 (130-400) T/MM3 MPV 11.2 (9.4-12.4) UM3 Immature Gran % (Auto) 0.2 (0.0-0.5) % Neut % (Auto) 67.4 H (33-66) % Lymph % (Auto) 20.1 L (23-45) % Kay % (Auto) 9.3 H (0-9.0) % Eos % (Auto) 2.6 (0-4) % Baso % (Auto) 0.4 (0-2) % Neut # (Auto) 6.9 (1.8-7.7) T/MM3 Lymph # (Auto) 2.0 (1-4.8) T/MM3 Kay # (Auto) 1.0 H (0-0.8) T/MM3 Eos # (Auto) 0.3 (0-0.5) T/MM3 Baso # (Auto) 0.0 (0-0.2) T/MM3 Abs Immat Gran (auto) 0.02 (0.00-0.03) T/MM3 Turbidity < 20 (0-20) Sodium 141 (134-144) MEQ/L Potassium 4.3 (3.6-5) MEQ/L Chloride 102 (98-107) MEQ/L Carbon Dioxide 27 (22-30) MEQ/L Anion Gap 12 (5-15) MEQ/L BUN 54.0 H* (9-20) MG/DL Creatinine 1.8 H (0.8-1.5) MG/DL GFR Calculation 38 BUN/Creatinine Ratio 30 H (6-26) RATIO Glucose 134 H (75-110) MG/DL Calculated Osmolality 288 H (261-280) MOSM/KG Calcium 9.8 (8.4-10.2) MG/DL Total Bilirubin 1.40 H (0.20-1.30) MG/DL Icterus Index < 2 (0-7) AST 30 (17-59) U/L ALT 36 (21-72) U/L Alkaline Phosphatase 88 (38-126) U/L Troponin I 0.060 (0-0.12) ng/ml B-Natriuretic Peptide 4010 H (0-175) pg/mL Total Protein 8.0 (6.3-8.2) G/DL Albumin 4.4 (3.5-5.0) G/DL Globulin 3.6 (2.4-3.6) G/DL Albumin/Globulin Ratio 1.2 (1.1-2.2) RATIO Specimen Hemolysis < 15 (0-25) - Radiology Data CXR - Fluid overload pattern with left pleural effusion. - EKG Data EKG #1 EKG results narrative: Atrial fibrillation with rapid ventricular response. 155 bpm. No STEMI. Disposition Clinical Impression: Afib Qualifiers: Atrial fibrillation type: unspecified Qualified Code(s): I48.91 - Unspecified atrial fibrillation CHF (congestive heart failure) Qualifiers: Congestive heart failure type: unspecified Congestive heart failure chronicity : unspecified Qualified Code(s): I50.9 - Heart failure, unspecified [place]position: 02 [place] [facility] [place] Condition: Improved Time of Disposition: 01:30 (Ad[address]. Dr. Valadez.) - Seen By: physician
[2017-08-28] MEDS ORDERED: DIGOXIN 500 MCG/2 ML INJECTION IVP ONE (01:33)
[2017-08-28] MEDS ORDERED: APIXABAN 5 MG TABLET PO ONE (01:45)
[2017-08-28] MEDS ORDERED: DiltiaZEM 25 MG/5 ML INJECTION IVP ONE (02:18)
[2017-08-28] MEDS ORDERED: ONDANSETRON 4 MG/2 ML INJECTION IVP PRN (02:23)
[2017-08-28] MEDS: DiltiaZEM Drip 125 MG in NS 125 ML IV SCH (03:11)
[2017-08-28 03:25] VITALS: BMI 45.1
[2017-08-28] MEDS ORDERED: ALBUMIN HUMAN IV SCH (03:45)
[2017-08-28] MEDS ORDERED: FUROSEMIDE 40 MG/4 ML INJECTION IVP SCH (03:45)
--- NOTE | 2017-08-28 04:40 | History & Physical Report ---
History of Present Illness Date: 08/28/17 Chief complaint: lower extremity edema HPI: 67 yo M with PMH of A. Fib, CHF, and COPD on oxygen chronically at home presented to the ED with reports of bilateral lower extremity swelling and noncompliance with medications. Patient denies any pain or discomfort. Patient noted onset of symptoms approximately 2 weeks ago. He was at home when his symptoms began. Symptoms have been persistent in nature since onset. He has no other complaints or associated symptoms. Patient has a history of similar symptoms in the past with exacerbation of atrial fibrillation and congestive heart failure. Patient sees Dr. Abdoul Conley as his records tech. Cardiology was consulted by ED and it was recommended patient be given digoxin and be admitted. Review of Systems All systems PM: 10-point ROS was reviewed, no additional remarkable complaints except Past Medical History Patient Stated Medical History Cardiac Arrhythmia Yes Congestive Heart Failure Yes Asthma Yes Chronic Obstructive Pulmonary Yes Disease (COPD) Pneumonia Yes Sleep Apnea Yes Gastroesophageal Reflux Yes Disease Ulcer Yes Other GI constipation Hx Benign Prostatic Yes Hyperplasia Hx Kidney Stones Yes Depression Yes Surgical History: Negative per patient. Family History Updates: nnon-contributory - Social History Smoking status: Current every day smoker Medications Home Medications Medication Instructions Recorded Confirmed Type Albuterol Sulfate [Ventolin Hfa] 1 - 2 puff ORAL INH Q6H PRN #0 01/22/16 History Ginkgo Biloba tab PO TID #0 01/22/16 History Ipratropium/Albuterol Sulfate 1 vial AEROSOL Q6H PRN #0 01/22/16 08/28/17 History [Iprat-Albut 0.5-3(2.5) mg/3 ml] L.acidoph,Paracasei, B.lactis 1 cap PO DAILY #0 01/22/16 08/28/17 History [Probiotic] Allergies Allergy/AdvReac Type Severity Reaction Status Date / Time No Known Allergies Allergy Verified 08/28/17 02:45 Exam Vital Signs: Pulse Rate 156 H 08/28/17 03:03 Respiratory Rate 24 08/28/17 00:19 Blood Pressure 117/64 08/28/17 00:19 Pulse Oximetry 97 08/28/17 00:19 Telemetry Rhythm: A-fib with RVR Height/Weight/BMI: Height 1.75 m Weight 138.7 kg Body Mass Index 45.1 - Constitutional Present: well nourished, well developed - Routine Respiratory Exam Present: CTA bilaterally. Absent: wheezes - Routine Cardiovascular Exam Present: irregularly irregular - Routine Abdominal Exam Present: soft, normoactive bowel sounds, non distended. Absent: tenderness - Routine Extremities Exam Present: edema (3+ pitting edema B/L lower extremity) - Routine Skin Exam Present: dry, warm Results - Labs CBC & Chem 7: 08/28/17 01:09 08/28/17 01:09 Assessment and Plan (1) Atrial fibrillation with RVR Current visit: No Status: Acute (2) Congestive heart failure (CHF) Current visit: Yes Status: Acute (3) Chronic obstructive pulmonary disease (COPD) Current visit: No Status: Chronic (4) Chronic respiratory failure Current visit: No Status: Chronic Assessment and Plan: Patient admitted to CCU. Started on cardizem gtt for rate control, patient given 5mg PO eliquis per cardiology. Will gentle diuresis patient tonight with lasix/albumen. Cardiology to see in AM. Continue home oxygen. Start nicotine patch. DVT Prophylaxis: Eliquis Resuscitation Status: Do Not Resuscitate - Physician Narrative Physician: Rosa Valadez MD Narrative: Date: 08/28/17 Time: 0434 Hospital Course Summary Disclaimer: The visit summary below is not to be considered part of the above Progress Note.
[2017-08-28] MEDS ORDERED: NS FLUSH BAG 500ml IV PRN (04:49)
[2017-08-28] MEDS: NICOTINE 21 MG PATCH TD SCH ×2 (04:59→12:00)
--- NOTE | 2017-08-28 08:54 | XRay Report ---
Indication: sob PROCEDURE: XR chest 1V: Encounter: Initial Comparison: June 13, 2017 Findings: Continued diffuse interstitial prominence. There is obscuration of the left diaphragm that may be due to overlapping soft tissue and an enlarged cardiac silhouette, although a small left effusion cannot be excluded. No pneumothorax or right pleural effusion. Cardiac silhouette is moderately severely enlarged. Mediastinal contours are stable. Pulmonary vascularity is indistinct. Impression: Chronic or recurrent moderate to severe pulmonary edema. .
[2017-08-28] MEDS ORDERED: BUMETANIDE 2.5mg/10ml INJECTION IVP ONE (09:15)
[2017-08-28] MEDS ORDERED: DEXTROSE 50% SYRINGE 50ml (1 AMP) IVP PRN (09:37)
[2017-08-28] MEDS: POLYETHYL GLYCOL 3350 17gm PACKET PO SCH ×2 (10:18→10:31)
[2017-08-28] MEDS: SENNA + DOCUSATE TABLET PO SCH (10:18)
[2017-08-28] MEDS: METHYLPREDNISOLONE SOD SUCC 125mg/2ml INJECTION IVP SCH ×2 (10:18→18:27)
[2017-08-28] MEDS: DiltiaZEM IR 60 MG TABLET PO SCH ×3 (10:56→21:07)
[2017-08-28] MEDS: ALBUTEROL/IPRATROPIUM 2.5mg-0.5mg/3ml NEB AEROSOL SCH ×2 (11:14→19:23)
--- NOTE | 2017-08-28 11:34 | Cardiology Consult Note ---
History of Present Illness Consult reason: atrial fibrillation, congestive heart failure, known to you History of present illness: Mr Gillis is a 67-year-old male history of noncompliance chronic cardiac pulmonary disease as noted the low and this note and previous H&P and consultation February 2017 as well as a medical record via [facility] May 2017. Was last seen in my office in the latter part of May and posthospitalization follow-up medications were adjusted asked to return to weeks for office recheck, when I asked him about why did he not return, today he answers "" I chickened out" he also ran out of all his pills about 2 weeks ago. He says that he's too scared to take his blood thinner concern to ' bleed out all over ". He says he would be willing to " take a chance of a stroke ", when I discussed with him the risks and benefits of anticoagulation and my strong recommendation for that treatment Reason Camilo is here, and his had increased swelling in his legs for the past 2 weeks ago he feels that his been doing a very good job following a low-sodium diet, increased his Lasix on his own and that wasn't helping , as he kept feeling more thirsty, drinking lots of water , and used some lozenges for dry throat, still did not help his swelling in his legs and some sensation of fullness in the abdomen. As above he stopped taking all his meds 2 weeks ago when he ran out and never got a refill. He says he gives the emergency room last night as his legs got up a fever and became very painful even with the mild activity. Emergency room he was found to be in pulmonary edema atrial fibrillation with RVR 150s and borderline low blood pressure, nevertheless that the latter part is chronic and baseline for him. He is on chronic oxygen 4-5 L/m. Has sleep apnea and he and never got a CPAP machine. He doesn't think his shortness breath is much different from his baseline, low became apparent that he gets short of breath speaking in long sentences O2 sat dropped transiently to the 70s , as he was talking and set up in bed for lung exam. He denies any chest pain or pressure, denies palpitations at present time, he feels some heart racing on occasions when he "gets excited" He just got over a cold 2 weeks ago of his gone still feels some mild sinus congestion production and no fever present time. in the Emergency room, Dr. Allen contacted me , to help in management of the above issues also noted elevated creatinine and borderline blood pressure in the 100s but I shared with him that is chronic for this patient and to usually asymptomatic. I recommend administration of IV digoxin 0.5 mg and a diltiazem drip and bolus and no IV fluid boluses less he becomes hypotensive blood pressure under 80 and recommended Eliquis treatment to be started at that time admission to CCU hospitalist for further management. Workup in 2016 with hospice was admitted to [facility] believe in February and May 2017 showed preserved LV systolic function and concentric LVH moderate mitral regurgitation moderate tricuspid regurgitation pulmonary hypertension coronary artery disease severe stenosis in the RCA required 2 bare metal stents 3.5 and [address] Peña at my request in May 2017. LCx 5060 percent stenosis treated medically. He was felt to be a candidate for medical therapy only for his valvular heart disease. She apparently completed his aspirin Plavix course in June, and is denying any angina. For additional details refer to the echocardiogram results from February at 2016 at the [facility], echocardiogram May 2017 via [facility], heart catheterization and PCI report l May 2017, (at that time patient did have a minimal troponin elevation). Review of Systems All systems PM: 10-point ROS was reviewed, no additional remarkable complaints except - Constitutional Constitutional: Present: as per HPI, fatigue. Absent: chills, fever(s) - Cardiovascular Cardiovascular: Present: palpitations. Absent: chest pain PFSH Patient Stated Medical History Cardiac Arrhythmia Yes Congestive Heart Failure Yes Asthma Yes Chronic Obstructive Pulmonary Yes Disease (COPD) Pneumonia Yes Sleep Apnea Yes Gastroesophageal Reflux Yes Disease Ulcer Yes Other GI constipation Hx Benign Prostatic Yes Hyperplasia Hx Kidney Stones Yes Depression Yes Minimally elevated troponin/non-STEMI versus type II TN ,May 2017 VCHF It was in the setting of pulmonary edema , A. fib with RVR, associated with atypical back pain Surgical History: Negative per patient. - Social History Smoking status: Current every day smoker (down to half a pack per day. He smoked heavily for most of his old life) Substance use type: does not use, former substance user (methamphtamines and marijuana several years ago) Alcohol intake: former (quit alcohol several months ago at least ,according to the patient. He used to drink heavily) Alcohol intake frequency: does not drink Household members: none Current residence: Apartment/Private Home Medications Home Medications Medication Instructions Recorded Confirmed Type Albuterol Sulfate [Ventolin Hfa] 1 - 2 puff ORAL INH Q6H PRN #0 01/22/16 History Ipratropium/Albuterol Sulfate 1 vial AEROSOL Q6H PRN #0 01/22/16 08/28/17 History [Iprat-Albut 0.5-3(2.5) mg/3 ml] L.acidoph,Paracasei, B.lactis 1 cap PO DAILY #0 01/22/16 08/28/17 History [Probiotic] Ibuprofen 200 mg PO PRN 08/28/17 08/28/17 History Allergies Allergy/AdvReac Type Severity Reaction Status Date / Time No Known Allergies Allergy Verified 08/28/17 02:45 Exam Vital signs: Temperature 97.6 F 08/28/17 10:51 Pulse Rate 80 08/28/17 10:51 Respiratory Rate 28 H 08/28/17 10:51 Blood Pressure 146/69 H 08/28/17 08:00 Pulse Oximetry 93 08/28/17 10:51 - Constitutional mild distress, obese, cooperative - Routine HEENT Exam Head: Present: normocephalic, atraumatic Eye: Present: EOMI, PERRL ENT: Present: mucous membranes dry - Routine Neck Exam Present: JVD (mild), normal carotid upstroke. Absent: lymphadenopathy, thyromegaly - Routine Respiratory Exam Present: accessory muscle use, dyspnea (conversational), prolonged expiratory phase, wheezes (bilateral expiratory), crackles (few bibasilar) - Routine Cardiovascular Exam Present: S1 (distant), S2 (distant), no murmur, irregular rhythm, irregularly irregular - Routine Abdominal Exam Present: soft, normoactive bowel sounds, non distended (obese), non tender - Routine Extremities Exam Present: edema (3+ bilateral pedal edema covered with See wraps). Absent: cyanosis, clubbing - Routine Neurological Exam Present: alert, oriented X3, CN II-XII intact, moving all extremities, vision grossly intact, hearing grossly intact, normal speech. Absent: motor deficit, hemineglect, facial asymmetry - Routine Psychiatric Exam Present: normal affect, normal thought process, cooperative, good insight Results 08/30/17 05:44 08/31/17 04:22 Intake and Output 08/27/17 08/28/17 08/28/17 22:59 06:59 14:59 Intake Total 316.083 / 316.083 60 / 60 Output Total 325 / 325 450 / 450 Balance -8.917 / -8.917 -390 / -390 Intake: IV 79.083 / 79.083 60 / 60 Albumin Human 12.5 g In 50 ml @ 50 / 50 50 mls/hr IV Q6HR BHAVESH Rx#: [id number] DiltiaZEM Drip 125 mg In Ns 125 29.083 / 29.083 60 / 60 ml @ 5 mls/hr IV .Q24H BHAVESH Rx# :[id number] Oral 237 / 237 Output: Urine 325 / 325 450 / 450 Other: Urine Appearance Cloudy Clear Urine Color Dark Yellow Dark Yellow Urine Odor Foul Weight 138.7 kg 138.7 kg Patient Weight 08/29/17 06:59 Weight 138.7 kg Troponin is normal - Imaging and Cardiology Echo: report reviewed Cardiac cath: report reviewed EKG results: image reviewed - EKG Interpretation EKG shows: atrial fibrillation (RVR 155 beats per minutes nonspecific intraventricular conduction delay Q waves in V1 and V2 Kate no acute ST depression or elevation, left axis deviation) Assessment and Plan - Assessment and Plan Atrial fibrillation with RVR, now rate controlled Pulmonary edema /acute on chronic DCHF/valvular component Prerenal as ischemia due to self-administered diuretic overdose as well as for renal perfusion caused by poor cardiac output caused by protracted tachycardia due to noncompliance with meds Coronary artery disease with the prior bare metal stents to RCA May 2017 History of minimally elevated troponin vs. NSTEMI May 2017 COPD Chronic respiratory failure Medication and medical noncompliance with grave consequences affecting his care and appears to be the leading cause of frequent hospitalizations , According to patient's report however appears to be compliant with diet. As discussed with Dr. Allen emergency room regarding A. fib and poor edema management, see history of present illness above #2 it is reasonable to wean down IV diltiazem to oral form and see how his A. fib rate control Agree with Gentle IV diuresis with close monitoring of his renal function and blood pressure I&O's and weight and repeat chest x-ray at some point #3 patient refuses to go on anticoagulant . He understands The risk of stroke. At the time of discharge , I recommend either Eliquis 5 mg BID (or ASA 81-325 mg daily), obviously the former Rx if he is to change his mind about anticoagulant. Emphasize importance of medical compliance especially with medications. Had multiple similar discussions at with him in the past. Long-term prognosis unfortunately appears poor and at risk for future major cardio pulmonary complications. That conclusion is based on his multiple chronic medical problems including cardiopulmonary disease ,very poor functional capacity ,and long-standing and continued medical noncompliance. d/w RT smoking cessation counseling and verbal order given Please contact me anytime if you have cardiac concerns Hospital Course Summary Disclaimer: The visit summary below is not to be considered part of the above Progress Note.
[2017-08-28] MEDS: LACTAID FAST TABLET PO SCH ×2 (12:02→18:27)
[2017-08-28] MEDS: MORPHINE SULFATE 2mg INJECTION IVP PRN ×2 (12:03→18:51)
[2017-08-28] MEDS: SIMETHICONE 125 MG CAPSULE PO SCH ×2 (18:27→21:07)
[2017-08-28] MEDS: INSULIN ASPART 100unit/ml INJECTION SQ PRN (20:52)
[2017-08-28] MEDS: APIXABAN 5 MG TABLET PO SCH (21:09)
[2017-08-28] MEDS: ATORVASTATIN 20 MG TABLET PO SCH (21:09)
[2017-08-28] MEDS: MONTELUKAST 10 MG TABLET PO SCH (23:07)
[2017-08-29] MEDS: METHYLPREDNISOLONE SOD SUCC 125mg/2ml INJECTION IVP SCH ×2 (02:22→10:35)
[2017-08-29] MEDS: DiltiaZEM Drip 125 MG in NS 125 ML IV SCH (02:55)
[2017-08-29] MEDS ORDERED: ALBUTEROL/IPRATROPIUM 2.5mg-0.5mg/3ml NEB AEROSOL PRN (03:01)
[2017-08-29] MEDS: DiltiaZEM IR 60 MG TABLET PO SCH ×2 (05:59→12:14)
[2017-08-29] MEDS: SIMETHICONE 125 MG CAPSULE PO SCH ×4 (05:59→20:18)
[2017-08-29] MEDS: INSULIN ASPART 100unit/ml INJECTION SQ PRN ×3 (06:46→20:17)
[2017-08-29] MEDS: ALBUTEROL/IPRATROPIUM 2.5mg-0.5mg/3ml NEB AEROSOL SCH ×4 (06:52→19:38)
[2017-08-29] MEDS: LACTAID FAST TABLET PO SCH ×4 (08:49→19:18)
[2017-08-29] MEDS: LACTOBACILLUS (15B cfu) CAPSULE PO SCH (08:51)
[2017-08-29] MEDS: APIXABAN 5 MG TABLET PO SCH ×2 (08:51→20:18)
[2017-08-29] MEDS: NICOTINE 21 MG PATCH TD SCH ×2 (08:52→15:48)
[2017-08-29] MEDS: SENNA + DOCUSATE TABLET PO SCH (08:55)
[2017-08-29] MEDS ORDERED: ASPIRIN 81 MG CHEWABLE TABLET PO SCH (09:00)
[2017-08-29] MEDS: NICOTINE PATCH REMOVAL TD SCH (09:00)
[2017-08-29] MEDS: POLYETHYL GLYCOL 3350 17gm PACKET PO SCH (10:36)
--- NOTE | 2017-08-29 10:50 | Cardiology Progress Note ---
Subjective Interval history: pt seen about 10 am Camilo is not feeling well overall he says . c/o some headache. hasn't been up this morning because "the chair is too small for me" ,RN confirms fitting size chair. denies CP . not soa lying down but cant breathe well sitting up "my belly starts pushing up " last night got up to BR w/o dyspnea c/o discomfort from guthrie catheter also revisited w pt regarding risks and benefits of oral anticoagulation at the time of d/c. per RN , Afib mostly rate controlled up to 110's ,on PO Diltiazem all labs,telemtry strips I/O and serial wt results reviewed in detail tele afib 124 bpm I/O -1700 cc labs good Cr NL. Exam Vital signs: Temperature 98.2 F 08/29/17 08:00 Pulse Rate 98 08/29/17 09:00 Respiratory Rate 33 H 08/29/17 09:00 Blood Pressure 120/66 08/29/17 09:00 Pulse Oximetry 93 08/29/17 09:00 - Constitutional mild distress, morbidly obese, obese - Routine HEENT Exam Head: Present: normocephalic, atraumatic Eye: Present: EOMI, PERRL ENT: Present: mucous membranes moist - Routine Neck Exam Present: normal carotid upstroke. Absent: JVD, carotid bruit, lymphadenopathy, thyromegaly - Routine Respiratory Exam Present: dyspnea (mild with conversation), wheezes (B ), diminished air movement (L base) Comments: 5 L O2 NC - Routine Cardiovascular Exam Present: S1 (disatnt), S2 (distant), no murmur, tachycardia, irregularly irregular - Routine Abdominal Exam Present: soft, normoactive bowel sounds, distended (obese ). Absent: rebound, guarding (obese ) - Routine Extremities Exam Present: edema (2+ B LE's wrapped in ARNOL wrap), normal capillary refill. Absent : cyanosis, clubbing - Routine Skin Exam Present: intact, warm. Absent: cyanosis, pallor - Routine Neurological Exam Present: alert, oriented X3, CN II-XII intact, moving all extremities, vision grossly intact, hearing grossly intact, normal speech. Absent: altered mental status, hemineglect, facial asymmetry - Routine Psychiatric Exam Present: good insight, agitated (a little) - Urinary Catheter Management Urethral Cath placed during this visit: yes Urethral indwelling: Yes Insertion date: 08/28/17 Insertion time: 18:45 Results 08/29/17 04:40 08/29/17 04:40 CBC 08/29/17 Range/Units 04:40 WBC 5.5 D (4.5-11.0) T/MM3 RBC 4.01 L (4.50-5.90) M/MM3 Hgb 12.6 L (13.5-17.5) GM/DL Hct 41.0 (41-53) % Plt Count 161 (130-400) T/MM3 Neut # (Auto) Not performed Lymph # (Auto) Not performed Pitkin # (Auto) Not performed Eos # (Auto) Not performed Baso # (Auto) Not performed Comprehensive Metabolic Panel 08/29/17 Range/Units 04:40 Sodium 141 (134-144) MEQ/L Potassium 4.5 (3.6-5) MEQ/L Chloride 100 (98-107) MEQ/L Carbon Dioxide 29 (22-30) MEQ/L BUN 49.0 H (9-20) MG/DL Creatinine 1.2 D (0.8-1.5) MG/DL Glucose 162 H (75-110) MG/DL Calcium 9.6 (8.4-10.2) MG/DL Intake and Output 08/28/17 08/29/17 08/29/17 22:59 06:59 14:59 Intake Total 360 / 360 Output Total 1525 / 1525 390 / 390 Balance -1165 / -1165 -390 / -390 Intake: Oral 360 / 360 Output: Urine 925 / 925 Urine Amount (Catheter) 600 / 600 390 / 390 Other: Urine Appearance Clear Urine Color Yellow Stool Consistency Formed Size of Bowel Movement Moderate # Voids 3 # Bowel Movements 1 - EKG Interpretation EKG shows: atrial fibrillation Assessment and Plan - Attestation Attestation Narrative: 08/29/17 12:57 aFIB RVR CHF DIASTOLIC A/C , w pulm edema .volume up MODERATE MR CAD W [id number] RCA 05/2017 PULM HTN CHELLE BETTER , eleavted BUN /prerenal azotemia and steroids . COPD CHRONIC RESP FAILURE MEDICAL NONCOMPLINACE AGREE W orders by Dr De Paz for IV Dig and IV Bumex will increase Diltiazem 300 mg daily schedule po Bumex 1 mg BID and KCL 10 meq BID and closely monitor BMP, feel free to adjust per hospitalist service. ARNOL on hold , chronic intermittent relatively low BP and renal insufficiency . with prerenal azotemia as well. not resuming his BB yet d/t active wheezing, unclear if he ' d ever be a good candidate for BB , bessie. w his medical noncompliance ,specifically meds. consider weaning down steroids to reduce GI bleed risk for the same reason will hold his ASA ,as Eliquis Rx is on board. reiterated to pt role of blood thinners benefits > risks d/t Chads2 vasc score he s contemplating. encourage activity up to chair 08/29/17 13:08 08/29/17 13:10 Hospital Course Summary Disclaimer: The visit summary below is not to be considered part of the above Progress Note.
[2017-08-29] MEDS ORDERED: DIGOXIN 500 MCG/2 ML INJECTION IVP ONE (12:12)
[2017-08-29] MEDS: SALINE FLUSH 10ml SYRINGE IVF PRN ×3 (12:22→23:23)
--- NOTE | 2017-08-29 14:40 | Ultrasound Report ---
EXAM: US abdomen complete LOCATION OF DICTATION: [place] HISTORY: Acute renal failure, abdominal distention, ?ascites COMPARISON: No prior studies available for comparison. Multiple real-time grayscale sonographic images were obtained of the abdomen with and without color flow. FINDINGS: Visualized portions of the head and body of the pancreas are unremarkable. The visualized portions of the aorta and IVC are unremarkable. Hepatic parenchyma is homogeneous without evidence for focal mass. The liver is enlarged and measures 19.08 cm. There is normal directional flow of the hepatic vasculature. Both the intra and extrahepatic biliary system are of normal caliber. The common bile duct measures 6.2 mm in maximum diameter. The gallbladder is normal. There is no wall thickening, pericholecystic fluid, sonographic Mcnamara's sign or cholelithiasis.The gallbladder wall measures 4.2 mm in maximum diameter. The kidneys are normal in size without hydronephrosis or mass. Both kidneys demonstrate normal corticomedullary differentiation. The right kidney measures 13.0 x 6.5 x 5.2 cm and left kidney measures 12.7 x 7.3 x 6.7 cm. The spleen is unremarkable. The spleen measures 12.93 cm. No free fluid. Mid to distal abdominal aortic aneurysm measuring 5.5 cm in Maximum diameter. There are trace amounts of free fluid within the abdomen. Limited study due to patient body habitus. IMPRESSION: 1. Distal abdominal aortic aneurysm measuring 5.5 cm maximum diameter. Consider CT angiogram to further evaluate. 2. Mild hepatomegaly. The gallbladder and biliary ducts are within normal limits for the patient's age. 3. Minimal abdominal ascites. .
[2017-08-29] MEDS: BUMETANIDE 1 MG TABLET PO SCH ×2 (14:46→19:15)
--- NOTE | 2017-08-29 17:36 | Progress Note ---
- Date 08/29/17 Subjective: Mr. Gillis reports mild dyspnea at rest but persistent exertional dyspnea with minor movement in the bed and speaking. He continues to wheeze and cough but reports decreased sputum production. He's had no chest pain or palpitations but reports variable abdominal discomfort/gas pain without nausea. He has been having bowel movements. His legs are swollen and hurt. He is lightheaded if he moves quickly. He denies fever. Tachycardia persists he thinks will improve if he diuresis more effectively. Objective Vital signs: Temperature 98.2 F 08/29/17 08:00 Pulse Rate 125 H 08/29/17 14:00 Respiratory Rate 20 08/29/17 14:49 Blood Pressure 105/74 08/29/17 14:00 Pulse Oximetry 98 - 5 L 08/29/17 14:49 EXAM General-NAD, alert, fluent speech HEENT-PER, EOMI, conjunctiva clear, sclera anicteric, oropharynx clear Lungs-respirations nonlabored, good airflow, breath sounds clear anteriorly except diffuse faint wheezing Cardiac-irregular rhythm, S1-S2, tachycardic Abd-obese, soft, moderately distended, nontender, active bowel sounds Ext-+2 edema, lower legs/feet wrapped in MEREDITH hose Neuro-moving upper extremities well Psych-calm, cooperative, oriented 3 - Height/Weight/BMI: Height 1.75 m Weight 139.9 kg Body Mass Index 45.1 Results - Labs CBC & Chem 7: 08/29/17 04:40 08/29/17 04:40 Labs: S89 L10 Meta1 A1c 5.6 - Imaging and Cardiology Chest x-ray Status: image reviewed by me (marked cardiomegaly with increased vascular markings) US - abdomen Status: image reviewed by me (distal aortic aneurysm measuring 5.5 cm maximally ; mild hepatomegaly without gallstones or ductal dilatation, minimal ascites) Assessment and Plan (1) Atrial fibrillation with RVR Problem details: HFpEF-EF 60% last year Current visit: No Status: Acute (2) Congestive heart failure (CHF) Current visit: Yes Status: Acute Assessment and Plan: Assessment: Acute on chronic diastolic CHF Atrial fibrillation with RVR Valvular heart disease-mild/moderate TR, moderate MR Acute kidney injury CAD with bare metal stents 05/31 Abdominal aortic aneurysm-5.5 cm by ultrasound Edema Hyperglycemia Obstructive sleep apnea Pulmonary hypertension likely secondary HTN GERD Tobacco use Plan: Discussed with Dr. Conley-digoxin added earlier today to improve rate control; Dr. Conley increased oral diltiazem. Continue diuresis, IV Bumex given this morning and scheduled oral Bumex initiated per Dr. Conley. Continue supplemental oxygen-titrate as permitted. Renal function improving with diuresis, continue to monitor AAA 5.5 cm maximally, will require frequent follow-up. Persistent postprandial hyperglycemia, A1c unremarkable. Diabetes not reported chronically. Likely [id number] from IV to oral steroids earlier today. DVT Prophylaxis: MEREDITH Hassan GI Prophylaxis: Pepcid Resuscitation Status: Full Code - Physician Narrative Narrative: Date: 08/29/17 Time: 1731 Hospital Course Summary Disclaimer: The visit summary below is not to be considered part of the above Progress Note. Hospital Course: 08/28/17 Patient admitted to CCU. Started on cardizem gtt for rate control, patient given 5mg PO eliquis per cardiology. Will gentle diuresis patient tonight with lasix/albumen. Cardiology to see in AM. Continue home oxygen. Start nicotine patch. 08/29/17 Persistent A. fib with tachycardia-digoxin added earlier today to improve rate control; Dr. Conley increased oral diltiazem after seeing patient in consultation. Continue diuresis, IV Bumex given this morning and scheduled oral Bumex initiated per Dr. Conley. Continue supplemental oxygen-titrate as permitted. Renal function improving with diuresis, continue to monitor AAA 5.5 cm maximally, will require frequent follow-up. Persistent postprandial hyperglycemia, A1c unremarkable. Diabetes not reported chronically. Likely [id number] from IV to oral steroids earlier today.
[2017-08-29] MEDS ORDERED: DIGOXIN 250 MCG TABLET PO ONE (18:15)
[2017-08-29] MEDS: PredniSONE 20 MG TABLET PO SCH (19:17)
[2017-08-29] MEDS ORDERED: BUMETANIDE 1 MG TABLET PO ONE (19:38)
[2017-08-29] MEDS: MONTELUKAST 10 MG TABLET PO SCH (20:18)
[2017-08-29] MEDS: ATORVASTATIN 20 MG TABLET PO SCH (20:19)
[2017-08-29] MEDS: FAMOTIDINE 20 MG TABLET PO SCH (20:19)
[2017-08-29] MEDS: MORPHINE SULFATE 2mg INJECTION IVP PRN ×2 (20:40→23:23)
[2017-08-30] MEDS: SIMETHICONE 125 MG CAPSULE PO SCH ×4 (05:16→20:36)
[2017-08-30] MEDS: INSULIN ASPART 100unit/ml INJECTION SQ PRN ×4 (06:06→20:32)
[2017-08-30] MEDS: ALBUTEROL/IPRATROPIUM 2.5mg-0.5mg/3ml NEB AEROSOL SCH ×4 (07:53→19:45)
[2017-08-30] MEDS: NICOTINE 21 MG PATCH TD SCH (08:41)
[2017-08-30] MEDS: PredniSONE 20 MG TABLET PO SCH (08:42)
[2017-08-30] MEDS: LACTAID FAST TABLET PO SCH ×3 (08:42→18:30)
[2017-08-30] MEDS: APIXABAN 5 MG TABLET PO SCH ×2 (08:43→20:33)
[2017-08-30] MEDS: FAMOTIDINE 20 MG TABLET PO SCH ×2 (08:43→20:33)
[2017-08-30] MEDS: SENNA + DOCUSATE TABLET PO SCH ×2 (08:44→20:34)
[2017-08-30] MEDS: NICOTINE PATCH REMOVAL TD SCH (08:44)
[2017-08-30] MEDS: POLYETHYL GLYCOL 3350 17gm PACKET PO SCH (08:44)
[2017-08-30] MEDS: LACTOBACILLUS (15B cfu) CAPSULE PO SCH (08:44)
[2017-08-30] MEDS: BUMETANIDE 1 MG TABLET PO SCH ×2 (09:13→13:58)
--- NOTE | 2017-08-30 13:50 | Cardiology Progress Note ---
Subjective Interval history: pt seen about 11 AM Complains of abdominal bloating and asking for increased diuretics. Sitting up in chair and walked to the bathroom earlier without dyspnea or angina. Having some dry cough. Electra little dizzy when he got up earlier. Abdominal ultrasound showed a 5.5 cm AAA, he denies any abdominal or back pain. He has some abdominal fullness he still feels his belly feeling tense in relationship to fluid retention. He is asking for IV diuretics. He says he is not patient with fluid removal. He agrees that his feet are less swollen He apparently reiterated to the hospitalist is not interested in taking blood thinners. Denies having had a bowel movement for 2 days, he normally goes daily. Feeling a little dryness in his mouth today Afib mostly rate controlled up 70s,on PO Diltiazem all labs,telemtry strips I/O and serial wt results reviewed in detail Oxygen turned down to 4 L tele afib 124 bpm I/O -700 Cumulative I&O's negative but Weight is up? Accurate labs stable Cr NL. Exam Vital signs: Temperature 97.6 F 08/30/17 04:00 Pulse Rate 93 08/30/17 12:00 Respiratory Rate 20 08/30/17 11:56 Blood Pressure 117/76 08/30/17 10:00 Pulse Oximetry 94 08/30/17 11:56 - Constitutional no acute distress - Routine HEENT Exam Head: Present: normocephalic, atraumatic Eye: Present: EOMI, PERRL ENT: Present: mucous membranes moist - Routine Neck Exam Present: normal carotid upstroke. Absent: JVD, carotid bruit, lymphadenopathy, thyromegaly - Routine Respiratory Exam Present: rales (few the right lung base), wheezes (bilateral expiratory). Absent: respiratory distress - Routine Cardiovascular Exam Present: S1 (distant), S2 (distant), no murmur, irregularly irregular. Absent: JVD - Routine Abdominal Exam Present: soft, non tender, distended. Absent: normoactive bowel sounds ( decreased but present), rebound, firm (a little tight but no guarding or peritoneal signs) - Routine Extremities Exam Present: edema (1-2+ pedal edema bilaterally both lower legs With See wrap), pulses intact. Absent: cyanosis, clubbing - Routine Skin Exam Present: intact, dry. Absent: cyanosis, erythema - Routine Neurological Exam Present: alert, oriented X3, CN II-XII intact, moving all extremities, vision grossly intact, hearing grossly intact, normal speech. Absent: hemineglect, facial asymmetry - Routine Psychiatric Exam Present: normal affect - Urinary Catheter Management Urethral Cath placed during this visit: yes Urethral indwelling: Yes Insertion date: 08/28/17 Insertion time: 18:45 Results 08/30/17 05:44 08/31/17 04:22 CBC 08/30/17 Range/Units 05:44 WBC 9.5 D (4.5-11.0) T/MM3 RBC 3.99 L (4.50-5.90) M/MM3 Hgb 12.6 L (13.5-17.5) GM/DL Hct 41.0 (41-53) % Plt Count 162 (130-400) T/MM3 Neut # (Auto) Not performed Lymph # (Auto) Not performed Gladwin # (Auto) Not performed Eos # (Auto) Not performed Baso # (Auto) Not performed Comprehensive Metabolic Panel 08/30/17 Range/Units 05:44 Sodium 140 (134-144) MEQ/L Potassium 4.9 (3.6-5) MEQ/L Chloride 99 (98-107) MEQ/L Carbon Dioxide 29 (22-30) MEQ/L BUN 54.0 H* (9-20) MG/DL Creatinine 1.1 (0.8-1.5) MG/DL Glucose 156 H (75-110) MG/DL Calcium 9.5 (8.4-10.2) MG/DL Albumin 4.1 (3.5-5.0) G/DL Intake and Output 08/29/17 08/30/17 08/30/17 22:59 06:59 14:59 Intake Total 240 / 240 240 / 240 240 / 240 Output Total 617 / 617 770 / 770 550 / 550 Balance -377 / -377 -530 / -530 -310 / -310 Intake: Oral 240 / 240 240 / 240 240 / 240 Output: Urine Amount (Catheter) 617 / 617 770 / 770 550 / 550 Other: Urine Appearance Cloudy Clear Clear Urine Color Yellow Yellow Yellow - Imaging and Cardiology EKG results: other Imaging & Cardiology Narrative: 08/30/17 13:55 Abdominal ultrasound report reviewed in detail - EKG Interpretation EKG shows: atrial fibrillation Assessment and Plan - Assessment and Plan aFIB RVR better controlled CHF DIASTOLIC A/C , w pulm edema .volume up Asymptomatic infrarenal AAA 5.5 cm MODER[address] MR CAD W BMSX2 RCA 05/2017 PULM HTN CHELLE BETTER , eleavted BUN /prerenal azotemia and steroids . COPD CHRONIC RESP FAILURE MEDICAL NONCOMPLINACE AGREE W orders by Dr De Paz for IV Dig and IV Bumex SEE on hold , chronic intermittent relatively low BP and renal insufficiency . with prerenal azotemia as well. With his positional dizziness and intermittent relative hypotension during this admission as well as previous admissions I feel the risk outweighs the benefit. not resuming his BB yet d/t active wheezing, and her compliance with meds unclear if he ' d ever be a good candidate for BB , bessie. w his noncompliance with meds. If patient refuses Eliquis, then would restart aspirin 81 mg daily. The addition of Zaroxolyn may be helpful, Outpatient consultation with Dr. Kenneth Ornelas is made to consider percutaneous AAA repair with a stent graft. Versus close observation . A likely poor candidate for open surgery. Discussed findings and plan with Camilo ,he is in agreement. Radha RAMIREZ made him the appointment Agree with weaning down steroids Plan discussed with Dr. De Paz agree with current management Diltiazem may be contributing to his constipation, he is on senna and MiraLAX although the latter drug was not given. Will discuss with nursing. Patient appears stable from a cardio vascular standpoint Hospital Course Summary Disclaimer: The visit summary below is not to be considered part of the above Progress Note.
[2017-08-30] MEDS: ATORVASTATIN 20 MG TABLET PO SCH (20:33)
[2017-08-30] MEDS: MONTELUKAST 10 MG TABLET PO SCH (20:35)
--- NOTE | 2017-08-30 20:57 | Progress Note ---
- Date 08/30/17 Subjective: Camilo reports swelling in his legs is a little bit better today but he has persistent abdominal distention which he attributed to fluid. He reports dyspnea has improved significantly with some ongoing exertional dyspnea. He denies wheezing today and reports only occasional cough. He denies chest pain, palpitations, fever, or loss of appetite. He's not had a bowel movement for several days. He initially reported that he wouldn't take blood thinners but subsequently agreed to do so after discussing stroke risk further with Dr. Conley. Objective Vital signs: Temperature 98.4 F 08/30/17 20:00 Pulse Rate 90 08/30/17 20:00 Respiratory Rate 24 08/30/17 20:00 Blood Pressure 119/67 08/30/17 20:00 Pulse Oximetry 94 08/30/17 20:00 I/O 1200/1937; reported weight up 1.1 kg despite negative fluid balance NAD, alert, appears more comfortable than he did yesterday EOMI, conjunctiva clear respirations nonlabored, good airflow, faint expiratory wheezing posteriorly, crackles at the bases posteriorly Irregular rhythm, S1-S2 with controlled rate present today Abdomen moderately distended but soft, nontender, diminished bowel sounds +1 pitting edema bilateral lower extremities Skin without rash Cooperative Rhythm: Atrial Fibrillation with Normal Ventricular Rate Height/Weight/BMI: Height 1.75 m Weight 141.1 kg Body Mass Index 45.1 Results - Labs CBC & Chem 7: 08/30/17 05:44 08/30/17 05:44 Labs: 97% neutrophils, 2% lymphocytes Magnesium 2.1, phosphorus 4.2 Assessment and Plan (1) Atrial fibrillation with RVR Problem details: HFpEF-EF 60% last year Current visit: No Status: Acute (2) Congestive heart failure (CHF) Current visit: Yes Status: Acute Assessment and Plan: Assessment: Acute on chronic diastolic CHF Atrial fibrillation with RVR Valvular heart disease-mild/moderate TR, moderate MR Acute kidney injury CAD with bare metal stents 05/31 Abdominal aortic aneurysm-5.5 cm by ultrasound Edema Hyperglycemia Obstructive sleep apnea Pulmonary hypertension likely secondary HTN GERD Tobacco use Plan: Discussed with Dr. Conley-patient has agreed to continue Eliquis for atrial fibrillation/stroke prophylaxis. Rate control has improved significantly with medication modifications made yesterday. Telemetry strips reviewed by myself-rate under 100 since late yesterday afternoon. Continue Cardizem CD-300 mg daily. Metolazone 5 mg added this morning to augment diuresis-continue for 1-2 days and reassess need. Will convert Bumex to IV administration for couple of days and then back to oral. Reassess chest x-ray in a.m. Renal function stable/improved. AAA 5.5 cm maximally, discussed with Dr. Conley-referral to vascular surgery being coordinated after heart failure stabilizes. Blood pressure stable. Persistent postprandial hyperglycemia, A1c unremarkable. Diabetes not reported chronically. Likely kftyiit-iqakysp-dqizrzelu from IV to oral steroids yesterday and will titrate off quickly as respiratory symptoms due to pulmonary edema rather than COPD exacerbation. Stable to transfer out of ICU. - Physician Narrative Narrative: Date: 08/30/17 Time: 2052 Hospital Course Summary Disclaimer: The visit summary below is not to be considered part of the above Progress Note. Hospital Course: 08/28/17 Patient admitted to CCU. Started on cardizem gtt for rate control, patient given 5mg PO eliquis per cardiology. Will gentle diuresis patient tonight with lasix/albumen. Cardiology to see in AM. Continue home oxygen. Start nicotine patch. 08/29/17 Persistent A. fib with tachycardia-digoxin added earlier today to improve rate control; Dr. Conley increased oral diltiazem after seeing patient in consultation. Continue diuresis, IV Bumex given this morning and scheduled oral Bumex initiated per Dr. Conley. Continue supplemental oxygen-titrate as permitted. Renal function improving with diuresis, continue to monitor AAA 5.5 cm maximally, will require frequent follow-up. Persistent postprandial hyperglycemia, A1c unremarkable. Diabetes not reported chronically. Likely jbeojkf-ovhvdfu-zxwjwikom from IV to oral steroids earlier today. 08/30/[address] Conley-patient has agreed to continue Eliquis for atrial fibrillation/stroke prophylaxis. Rate control has improved significantly with medication modifications made yesterday. Continue Cardizem CD-300 mg daily. Reassess chest x-ray in a.m. Metolazone 5 mg added this morning to augment diuresis-continue for 1-2 days and reassess need. Will convert Bumex to IV administration for couple of days and then back to oral. Renal function stable/improved.
[2017-08-31] MEDS: SIMETHICONE 125 MG CAPSULE PO SCH ×4 (03:06→20:28)
[2017-08-31] MEDS: ALBUTEROL/IPRATROPIUM 2.5mg-0.5mg/3ml NEB AEROSOL SCH ×4 (07:47→19:48)
--- NOTE | 2017-08-31 08:16 | XRay Report ---
INDICATION: CHF PROCEDURE: CHEST 2-VIEWS UPRIGHT (PA & LAT) Encounter: Initial COMPARISON: August 28, 2017 FINDINGS: Pulmonary edema pattern persists without significant interval change. No new or worsening airspace disease. No pneumothorax. Trace pleural effusions. Heart size and mediastinal contours are stable. Impression: Grossly stable appearance of the chest. .
[2017-08-31] MEDS: POLYETHYL GLYCOL 3350 17gm PACKET PO SCH ×2 (08:48→20:27)
[2017-08-31] MEDS: LACTOBACILLUS (15B cfu) CAPSULE PO SCH (08:50)
[2017-08-31] MEDS: SENNA + DOCUSATE TABLET PO SCH ×3 (08:50→20:28)
[2017-08-31] MEDS: PredniSONE 20 MG TABLET PO SCH (08:50)
[2017-08-31] MEDS: LACTAID FAST TABLET PO SCH ×3 (08:51→17:49)
[2017-08-31] MEDS: NICOTINE PATCH REMOVAL TD SCH (08:58)
[2017-08-31] MEDS: NICOTINE 21 MG PATCH TD SCH (08:58)
[2017-08-31] MEDS: FAMOTIDINE 20 MG TABLET PO SCH ×2 (09:05→20:28)
[2017-08-31] MEDS: APIXABAN 5 MG TABLET PO SCH ×2 (09:06→20:28)
--- NOTE | 2017-08-31 12:06 | Cardiology Progress Note ---
Subjective Interval history: pt seen about 11 AM Complains of abdominal distension and asking for increased diuretics. Sitting up in chair .appears comfortable. no BM yet. still a bit more SOA with activity ,more than his baseline he says. He s on chronic home O2. denies angina or dizziness. Also c/o dry cough this morning lying in bed. Says breathing easier after getting his Nebs. after conversation last night we had, pt says he wants to take Eliquis. he verbelizes understanding or the risks and benefits. S.W visiting with him , also discussing Rx compliance, and suggested bubble pack . Afib mostly rate controlled <100 ,on PO Diltiazem all labs,telemtry strips I/O and serial wt results reviewed in detail diuresed about 3 L (after receiving IV Bumex and PO Metalozone) Afib 80-100 bpm occ pvc's wt is down labs stable Cr NL. BUN 60 CXR still with mild pulm edema but may be lagging behind clinical improvement. US report reviewed .no ascites seen Exam Vital signs: Temperature 97.7 F 08/31/17 09:28 Pulse Rate 93 08/31/17 09:28 Respiratory Rate 18 08/31/17 09:28 Blood Pressure 139/78 08/31/17 09:28 Pulse Oximetry 91 08/31/17 09:28 - Constitutional no acute distress, well developed, morbidly obese, obese, cooperative - Routine HEENT Exam Head: Present: normocephalic, atraumatic Eye: Present: EOMI ENT: Present: mucous membranes moist - Routine Neck Exam Present: supple, normal carotid upstroke. Absent: JVD, carotid bruit, lymphadenopathy, thyromegaly - Routine Respiratory Exam Present: rales (min L base), wheezes (few scattered exp. wheezes B mid lungs. overall lungs sound much clearer) - Routine Cardiovascular Exam Present: murmur (soft CELSO 1-2/6 is heard today), irregularly irregular - Routine Abdominal Exam Present: soft, normoactive bowel sounds - Routine Extremities Exam Present: edema (1+pitting edema B feetto the ankles. ARNOL wraps on). Absent: cyanosis, clubbing - Routine Skin Exam Absent: cyanosis - Routine Neurological Exam Present: alert, oriented X3, CN II-XII intact, moving all extremities, vision grossly intact, hearing grossly intact, normal speech. Absent: motor deficit, altered mental status, hemineglect, facial asymmetry - Routine Psychiatric Exam Present: normal affect, normal thought process, cooperative, good insight, good judgment - Urinary Catheter Management Urethral Cath placed during this visit: yes Urethral indwelling: Yes Insertion date: 08/28/17 Insertion time: 18:45 Results 08/30/17 05:44 08/31/17 04:22 Comprehensive Metabolic Panel 08/31/17 Range/Units 04:22 Sodium 139 (134-144) MEQ/L Potassium 4.5 (3.6-5) MEQ/L Chloride 97 L (98-107) MEQ/L Carbon Dioxide 33 H (22-30) MEQ/L BUN 60.0 H* (9-20) MG/DL Creatinine 1.0 (0.8-1.5) MG/DL Glucose 141 H (75-110) MG/DL Calcium 9.6 (8.4-10.2) MG/DL Intake and Output 08/30/17 08/31/17 08/31/17 22:59 06:59 14:59 Intake Total 480 / 480 300 / 300 Output Total 1580 / 1580 1925 / 1925 Balance -1100 / -1100 -1625 / -1625 Intake: Oral 480 / 480 300 / 300 Output: Urine 775 / 775 Urine Amount (Catheter) 1580 / 1580 1150 / 1150 Other: Urine Appearance Clear Clear Urine Color Pale Yellow Yellow Urine Odor Normal Weight 139.1 kg Patient Weight 09/01/17 06:59 Weight 139.1 kg - EKG Interpretation EKG shows: atrial fibrillation Assessment and Plan - Assessment and Plan aFIB RVR now rate controlled CHF DIASTOLIC A/C , w pulm edema .hypervolemia better. asymptomatic infrarenal AAA 5.5 cm by U.S MODERATE MR CAD W BMSX2 RCA 05/2017 PULM HTN CHELLE BETTER , eleavted BUN /prerenal azotemia and steroids . COPD CHRONIC RESP FAILURE MEDICAL NONCOMPLINACE ARNOL on hold , BB on hold . today I had a jayne discussion with Camilo about his meds and reiterated the compliance issue. It ;s noted today that his hypotension improved ,in spite of good diuresis. wheezing has improved and lungs sound clearer. CXR improvement may be lagging behind. I discussed with him,the beneficial effects of BB and ACEi related to his DCHF vs. the risks ,possible side effects namely his respiratory and renal Fx, ans the need for compliance with blood work (monitor BMP as outpt) and if prescribing 2 extra meds to him ,would still allow him to comply. he wants to think about that. He is undecided. will keep Cardizem and Eliquis RX ,restart Bumex 1-2 mg BID PO . If he agrees to comply with additional Meds and follow up , and consents to possible side effects , would add Lisinopril 2.5 mg QHS and Metoprolol ER 12.5 mg daily . would closely monitor his wheezing, BP and BMP. At this point I'll see pt and follow him PRN in the hospital. D/w Dr De Paz. RTC with me in 2 wks with BMP . please call me regarding cardiac concerns. Outpatient consultation with Dr. Kenneth Ornelas is made to consider percutaneous AAA repair with a stent graft. Versus close observation . A likely poor candidate for open surgery.would likely need an outpt abd CT scan , to allow him to recover from CHF/CHELLE. Plan discussed with Dr. De Paz ,agree with current management Diltiazem may be contributing to his constipation, he is on senna and MiraLAX no BM yet. Patient appears stable from a cardio vascular standpoint. further orders per 1ry service. please call me with CV concerns. will sign off. Hospital Course Summary Disclaimer: The visit summary below is not to be considered part of the above Progress Note. Hospital Course: 08/28/17 Patient admitted to CCU. Started on cardizem gtt for rate control, patient given 5mg PO eliquis per cardiology. Will gentle diuresis patient tonight with lasix/albumen. Cardiology to see in AM. Continue home oxygen. Start nicotine patch. 08/29/17 Persistent A. fib with tachycardia-digoxin added earlier today to improve rate control; Dr. Conley increased oral diltiazem after seeing patient in consultation. Continue diuresis, IV Bumex given this morning and scheduled oral Bumex initiated per Dr. Conley. Continue supplemental oxygen-titrate as permitted. Renal function improving with diuresis, continue to monitor AAA 5.5 cm maximally, will require frequent follow-up. Persistent postprandial hyperglycemia, A1c unremarkable. Diabetes not reported chronically. Likely pddymvx-xtkjidg-somnlsxho from IV to oral steroids earlier today. 08/30/[address] Conley-patient has agreed to continue Eliquis for atrial fibrillation/stroke prophylaxis. Rate control has improved significantly with medication modifications made yesterday. Continue Cardizem CD-300 mg daily. Reassess chest x-ray in a.m. Metolazone 5 mg added this morning to augment diuresis-continue for 1-2 days and reassess need. Will convert Bumex to IV administration for couple of days and then back to oral. Renal function stable/improved.
[2017-08-31] MEDS: INSULIN ASPART 100unit/ml INJECTION SQ PRN ×3 (12:56→20:30)
[2017-08-31] MEDS: BUMETANIDE 1 MG TABLET PO SCH (14:25)
[2017-08-31] MEDS ORDERED: LACTULOSE 20 GM/30 ML ORAL LIQUID PO ONE (15:17)
--- NOTE | 2017-08-31 17:00 | Progress Note ---
- Date 08/31/17 Subjective: Camilo reports dyspnea is improved overall although he has intermittent coughing spells without sputum production. He denied nausea or abdominal pain but has not yet had a bowel movement and feels it's contributing to his abdominal distention. He diuresed well yesterday and is anxious to continue getting fluid off. He denies lightheadedness and reports his appetite is good. No chest pain or palpitations reported. Complains of dry mouth-using cough drops to stimulate saliva. Objective Vital signs: Temperature 97.7 F 08/31/17 16:08 Pulse Rate 93 08/31/17 16:08 Respiratory Rate 18 08/31/17 16:08 Blood Pressure 149/58 H 08/31/17 16:08 Pulse Oximetry 92 - 4 L 08/31/17 16:08 I/O 1380/4380 NAD, alert, fluent speech EOMI, conjunctiva clear, sclera anicteric, oropharynx clear Respirations nonlabored, good airflow, breath sounds are slightly coarse with faint wheezing posteriorly Irregular rhythm, S1-S2 Abdomen is obese/distended, soft, nontender, bowel sounds present Extremities with +1-+2 edema No rashes present Cooperative Rhythm: Atrial Fibrillation with Normal Ventricular Rate Height/Weight/BMI: Height 1.75 m Weight 139.1 kg Body Mass Index 45.1 Results - Labs CBC & Chem 7: 08/30/17 05:44 08/31/17 04:22 - Imaging and Cardiology Chest x-ray Status: image reviewed by me (cardiomegaly with increased vascular markings bilaterally-minimal improvement) Assessment and Plan (1) Atrial fibrillation with RVR Problem details: HFpEF-EF 60% last year Current visit: No Status: Acute (2) Congestive heart failure (CHF) Current visit: Yes Status: Acute Assessment and Plan: Assessment: Acute on chronic diastolic CHF Atrial fibrillation with RVR Valvular heart disease-mild/moderate TR, moderate MR Acute kidney injury CAD with bare metal stents 05/31 Abdominal aortic aneurysm-5.5 cm by ultrasound Edema Hyperglycemia Obstructive sleep apnea Pulmonary hypertension likely secondary HTN GERD Tobacco use Obstipation Plan: Discussed with Dr. Conley-diuresed well yesterday, Zaroxolyn given again today. Plan continuation of Bumex. Dr. Conley discussed possibly adding low-dose metoprolol and lisinopril to the patient's regimen to help with management of CHF over the next couple of days depending on course. Rate is well controlled with Cardizem CD. Remains volume overloaded, continue diuresis-BUN up slightly after rapid diuresis yesterday. Hold Zaroxolyn tomorrow, Bumex return to oral administration to slow diuresis. Primary concern today is of constipation-lactulose to be given. AAA 5.5 cm maximally, discussed with Dr. Conley-referral to vascular surgery being coordinated after heart failure stabilizes. Blood pressure stable so far but has been rising slowly. Fasting glucose minimally elevated. Postprandials not yet reported. Suspect steroid-induced hyperglycemia. Taper steroids off over the next 2-3 days (initiated for wheezing on admission- wheezing likely due to pulmonary edema). Known history of obstructive sleep apnea, CPAP previously prescribed but patient did not tolerate and he is reluctant to try again. Check nocturnal oximetry on current oxygen flow rate. Resuscitation Status: Full Code - Physician Narrative Narrative: Date: 08/31/17 Time: 1656 Hospital Course Summary Disclaimer: The visit summary below is not to be considered part of the above Progress Note. Hospital Course: 08/28/17 Patient admitted to CCU. Started on cardizem gtt for rate control, patient given 5mg PO eliquis per cardiology. Will gentle diuresis patient tonight with lasix/albumen. Cardiology to see in AM. Continue home oxygen. Start nicotine patch. 08/29/17 Persistent A. fib with tachycardia-digoxin added earlier today to improve rate control; Dr. Conley increased oral diltiazem after seeing patient in consultation. Continue diuresis, IV Bumex given this morning and scheduled oral Bumex initiated per Dr. Conley. Continue supplemental oxygen-titrate as permitted. Renal function improving with diuresis, continue to monitor AAA 5.5 cm maximally, will require frequent follow-up. Persistent postprandial hyperglycemia, A1c unremarkable. Diabetes not reported chronically. Likely zieputz-gvdfmwi-meiymnhzl from IV to oral steroids earlier today. 08/30/[address] Conley-patient has agreed to continue Eliquis for atrial fibrillation/stroke prophylaxis. Rate control has improved significantly with medication modifications made yesterday. Continue Cardizem CD-300 mg daily. Reassess chest x-ray in a.m. Metolazone 5 mg added this morning to augment diuresis-continue for 1-2 days and reassess need. Will convert Bumex to IV administration for couple of days and then back to oral. Renal function stable/improved. 08/31/17 Diuresed well yesterday, Zaroxolyn given again today. Continue Bumex orally. Dr. Conley discussed possibly adding low-dose metoprolol and lisinopril to the patient's regimen to help with management of CHF over the next couple of days depending on course. Rate is well controlled with Cardizem CD. Remains volume overloaded, continue diuresis-BUN up slightly after rapid diuresis yesterday. Hold Zaroxolyn tomorrow. Primary concern today is of constipation-lactulose to be given. AAA 5.5 cm maximally, discussed with Dr. Conley-referral to vascular surgery being coordinated after heart failure stabilizes. Blood pressure stable so far but has been rising slowly. Fasting glucose minimally elevated. Postprandials not yet reported. Suspect steroid-induced hyperglycemia. Taper steroids off over the next 2-3 days (initiated for wheezing on admission- wheezing likely due to pulmonary edema). Known history of obstructive sleep apnea, CPAP previously prescribed but patient did not tolerate and he is reluctant to try again. Check nocturnal oximetry on current oxygen flow rate.
[2017-08-31] MEDS: MONTELUKAST 10 MG TABLET PO SCH (20:28)
[2017-08-31] MEDS: ATORVASTATIN 20 MG TABLET PO SCH (20:28)
[2017-09-01] MEDS: SALINE FLUSH 10ml SYRINGE IVF PRN ×2 (00:29→20:34)
[2017-09-01] MEDS: SIMETHICONE 125 MG CAPSULE PO SCH ×4 (02:01→20:33)
[2017-09-01] MEDS: ALBUTEROL/IPRATROPIUM 2.5mg-0.5mg/3ml NEB AEROSOL SCH ×4 (07:45→19:44)
[2017-09-01] MEDS: LACTOBACILLUS (15B cfu) CAPSULE PO SCH (08:24)
[2017-09-01] MEDS: APIXABAN 5 MG TABLET PO SCH ×2 (08:24→20:34)
[2017-09-01] MEDS: LACTAID FAST TABLET PO SCH ×3 (08:24→18:09)
[2017-09-01] MEDS: PredniSONE 20 MG TABLET PO SCH (08:24)
[2017-09-01] MEDS: BUMETANIDE 1 MG TABLET PO SCH ×2 (08:24→15:22)
[2017-09-01] MEDS: SENNA + DOCUSATE TABLET PO SCH ×2 (08:28→20:33)
[2017-09-01] MEDS: FAMOTIDINE 20 MG TABLET PO SCH ×2 (08:28→20:34)
[2017-09-01] MEDS: POLYETHYL GLYCOL 3350 17gm PACKET PO SCH ×2 (08:30→20:34)
[2017-09-01] MEDS: NICOTINE 21 MG PATCH TD SCH (08:30)
[2017-09-01] MEDS: NICOTINE PATCH REMOVAL TD SCH (08:32)
[2017-09-01] MEDS: INSULIN ASPART 100unit/ml INJECTION SQ PRN ×2 (15:25→20:39)
[2017-09-01] MEDS ORDERED: LACTULOSE 20 GM/30 ML ORAL LIQUID PO ONE (16:06)
[2017-09-01] MEDS: MONTELUKAST 10 MG TABLET PO SCH (20:34)
[2017-09-01] MEDS: ATORVASTATIN 20 MG TABLET PO SCH (20:34)
--- NOTE | 2017-09-01 22:37 | Progress Note ---
- Date 09/01/17 Subjective: Camilo was seen with his at bedside today. He continues to express concern about abdominal girth and needing to "get it off"-he attributes much of this to constipation and excess fluid although abdominal ultrasound did not identify ascites. He continues to require supplemental oxygen; he is breathing more comfortably at rest and he did initially but is dyspneic with limited activities. He is anxious to have Thompson catheter removed. He denied lightheadedness or fever and reports having a bowel movement yesterday but doesn 't think it was enough. He denies chest pain or palpitations and has had no fever. Objective Vital signs: Temperature 97.9 F 09/01/17 20:30 Pulse Rate 92 09/01/17 20:30 Respiratory Rate 20 09/01/17 20:30 Blood Pressure 135/84 09/01/17 20:30 Pulse Oximetry 95 -4 L 09/01/17 20:30 I/O 1560/5050 weight down 6.7 kg in the past 48 hours NAD, alert, fluent speech Conjugate gaze, conjunctiva clear Respirations nonlabored, good inspiratory effort, diminished breath sounds throughout, no wheezing present today Irregular rhythm, S1-S2, low-grade tachycardia present at the time of my exam Abdomen obese, soft, nontender; no pitting edema palpable in the lower back or abdominal wall Extremities with +2 edema MAEW, no rash or wounds Calm, cooperative Rhythm: Atrial Fibrillation with Normal Ventricular Rate Height/Weight/BMI: Height 1.75 m Weight 134.4 kg Body Mass Index 45.1 Results - Labs CBC & Chem 7: 09/01/17 04:17 09/01/17 04:17 Labs: Accu-Cheks [phone] Assessment and Plan (1) Atrial fibrillation with RVR Problem details: HFpEF-EF 60% last year Current visit: No Status: Acute (2) Congestive heart failure (CHF) Current visit: Yes Status: Acute Assessment and Plan: Assessment: Acute on chronic diastolic CHF Atrial fibrillation with RVR Valvular heart disease-mild/moderate TR, moderate MR Acute kidney injury CAD with bare metal stents 05/31 Abdominal aortic aneurysm-5.5 cm by ultrasound Edema Hyperglycemia-A1c 5.6 on 08/29/17 Obstructive sleep apnea-doesn't use CPAP Pulmonary hypertension likely secondary HTN GERD Tobacco use Obstipation Plan: Discussed with Dr. Conley again today, low-dose Toprol-XL initiated dose of 12.5 mg per day-if tolerates will add lisinopril 2.5 mg in the next 1 or 2 days. Continue extended release diltiazem and Eliquis for A. fib. Zaroxolyn on hold today. Diuresing well with Bumex. Renal function stable. Patient's primary concern remains constipation-lactulose to be given again today and will be ordered for when necessary administration in conjunction with MiraLAX/Senokot. AAA 5.5 cm maximally, discussed with Dr. Conley-referral to vascular surgery being coordinated after heart failure stabilizes. Blood pressure stable-should tolerate addition of beta saud and ARNOL inhibitor (latter depending on renal function). Fasting glucose improved with steroid taper although postprandials remain slightly elevated. Suspect steroid-induced hyperglycemia. Wheezing reported on admission was likely due to pulmonary edema. Known history of obstructive sleep apnea, CPAP previously prescribed but patient did not tolerate and he is reluctant to try again. Nocturnal oximetry obtained last night was reviewed by me and revealed episodic hypoxemia on 4 L, oxygen flow increased to 5 L around 2 AM after which there continues to be sawtooth pattern with intermittent saturations into the low 80s and occasionally upper 70s. Total time with oxygen saturation less than 89% was 1 hour and 8 minutes and study strongly suggestive of sleep apnea. Will discuss with patient further tomorrow. Check ABG in a.m. White count up slightly today after several days therapy with steroids, no evidence of acute infection. Monitor intermittently. - Physician Narrative Narrative: Date: 09/01/17 Time: 2233 Hospital Course Summary Disclaimer: The visit summary below is not to be considered part of the above Progress Note. Hospital Course: 08/28/17 Patient admitted to CCU. Started on cardizem gtt for rate control, patient given 5mg PO eliquis per cardiology. Will gentle diuresis patient tonight with lasix/albumen. Cardiology to see in AM. Continue home oxygen. Start nicotine patch. 08/29/17 Persistent A. fib with tachycardia-digoxin added earlier today to improve rate control; Dr. Conley increased oral diltiazem after seeing patient in consultation. Continue diuresis, IV Bumex given this morning and scheduled oral Bumex initiated per Dr. Conley. Continue supplemental oxygen-titrate as permitted. Renal function improving with diuresis, continue to monitor AAA 5.5 cm maximally, will require frequent follow-up. Persistent postprandial hyperglycemia, A1c unremarkable. Diabetes not reported chronically. Likely [id number] from IV to oral steroids earlier today. 08/30/[address] Conley-patient has agreed to continue Eliquis for atrial fibrillation/stroke prophylaxis. Rate control has improved significantly with medication modifications made yesterday. Continue Cardizem CD-300 mg daily. Reassess chest x-ray in a.m. Metolazone 5 mg added this morning to augment diuresis-continue for 1-2 days and reassess need. Will convert Bumex to IV administration for couple of days and then back to oral. Renal function stable/improved. 08/31/17 Diuresed well yesterday, Zaroxolyn given again today. Continue Bumex orally. Dr. Conley discussed possibly adding low-dose metoprolol and lisinopril to the patient's regimen to help with management of CHF over the next couple of days depending on course. Rate is well controlled with Cardizem CD. Remains volume overloaded, continue diuresis-BUN up slightly after rapid diuresis yesterday. Hold Zaroxolyn tomorrow. Primary concern today is of constipation-lactulose to be given. AAA 5.5 cm maximally, discussed with Dr. Conley-referral to vascular surgery being coordinated after heart failure stabilizes. Blood pressure stable so far but has been rising slowly. Fasting glucose minimally elevated. Postprandials not yet reported. Suspect steroid-induced hyperglycemia. Taper steroids off over the next 2-3 days (initiated for wheezing on admission- wheezing likely due to pulmonary edema). Known history of obstructive sleep apnea, CPAP previously prescribed but patient did not tolerate and he is reluctant to try again. Check nocturnal oximetry on current oxygen flow rate. 09/01/[address] Conley again today, low-dose Toprol-XL initiated dose of 12.5 mg per day-if tolerates will add lisinopril 2.5 mg in the next 1 or 2 days. Continue extended release diltiazem and Eliquis for A. fib. Zaroxolyn on hold today. Diuresing well with Bumex. Renal function stable. Patient's primary concern remains constipation-lactulose to be given again today and will be ordered for when necessary administration in conjunction with MiraLAX/Senokot. Blood pressure stable-should tolerate addition of beta saud and ARNOL inhibitor (latter depending on renal function). Fasting glucose improved with steroid taper although postprandials remain slightly elevated. Suspect steroid-induced hyperglycemia. Nocturnal oximetry obtained last night revealed episodic hypoxemia on 4 L, oxygen flow increased to 5 L around 2 AM after which there continues to be sawtooth pattern with intermittent saturations into the low 80s and occasionally upper 70s. Total time with O2 saturation < 89% was 1 hour 8 minutes and study strongly suggestive of sleep apnea. Will discuss with patient further tomorrow. Check ABG in a.m.
[2017-09-02] MEDS: MORPHINE SULFATE 2mg INJECTION IVP PRN ×5 (01:08→22:53)
[2017-09-02] MEDS: SIMETHICONE 125 MG CAPSULE PO SCH ×4 (04:54→21:15)
[2017-09-02] MEDS: SALINE FLUSH 10ml SYRINGE IVF PRN (04:55)
[2017-09-02] MEDS: ALBUTEROL/IPRATROPIUM 2.5mg-0.5mg/3ml NEB AEROSOL SCH ×4 (07:27→21:40)
[2017-09-02] MEDS: APIXABAN 5 MG TABLET PO SCH ×2 (09:04→21:14)
[2017-09-02] MEDS: BUMETANIDE 1 MG TABLET PO SCH ×2 (09:05→14:46)
[2017-09-02] MEDS: LACTOBACILLUS (15B cfu) CAPSULE PO SCH (09:06)
[2017-09-02] MEDS: POLYETHYL GLYCOL 3350 17gm PACKET PO SCH ×2 (09:06→21:15)
[2017-09-02] MEDS: LACTAID FAST TABLET PO SCH ×3 (09:06→18:45)
[2017-09-02] MEDS: FAMOTIDINE 20 MG TABLET PO SCH ×2 (09:06→21:15)
[2017-09-02] MEDS: PredniSONE 20 MG TABLET PO SCH (09:06)
[2017-09-02] MEDS: SENNA + DOCUSATE TABLET PO SCH ×2 (09:06→21:15)
[2017-09-02] MEDS: NICOTINE PATCH REMOVAL TD SCH (09:08)
[2017-09-02] MEDS: NICOTINE 21 MG PATCH TD SCH (09:08)
--- NOTE | 2017-09-02 11:53 | Pulmonology Consult Note ---
History of Present Illness Consult date: 09/02/17 Requesting physician: Renuka De Paz Reason for consult: dyspnea, COPD Chief complaint: SOB, BLE edema History of present illness: This is a 67 yo male with a Hx of A. Fib, CHF, ELADIA, and COPD on oxygen chronically at home. States he was recently at [facility] for AAA size 5.5cm, awaiting vascular surgery referral. He states over the past 3 weeks he has noticed increased BLE edema with increase recently along with SOB. He [place] [facility] [place] [facility] with [place]. He does have a Hx of being noncompliant with his meds and previous Cpap. He was noted to be in atrial fibrillation with CHF on admit. CXR showed diffuse interstitial infiltrates with cardiomegaly. He was started on diuretics and digoxin and was admitted. He did have an ABG this am 7.5/44 on 4L. We have been consulted for his respiratory failure and appreciate the consult. Review of Systems - Constitutional Constitutional: Present: weight gain - EENT Eyes: Present: as per HPI Nose: Present: as per HPI Mouth/Throat: Present: mucosa moist - Cardiovascular Cardiovascular: Present: dyspnea on exertion, orthopnea, edema - Respiratory Respiratory: Present: dyspnea on exertion, wheezing - Gastrointestinal Gastrointestinal: Present: as per HPI - Musculoskeletal Musculoskeletal: Present: as per HPI - Neurological Neurological: Present: as per HPI - Psychiatric Psychiatric: Present: as per HPI - Hematologic/Lymphatic Hematologic/Lymphatic: Present: as per HPI - Allergic/Immunologic Allergic/Immunologic: Present: as per HPI PFS Patient Stated Medical History Cardiac Arrhythmia Yes Congestive Heart Failure Yes Asthma Yes Chronic Obstructive Pulmonary Yes Disease (COPD) Pneumonia Yes Sleep Apnea Yes Gastroesophageal Reflux Yes Disease Ulcer Yes Other GI constipation Hx Benign Prostatic Yes Hyperplasia Hx Kidney Stones Yes Depression Yes Surgical History: Negative per patient. - Social History Smoking status: Current every day smoker (down to half a pack per day. He smoked heavily for most of his old life) Current residence: Apartment/Private Home Medications Home Medications Medication Instructions Recorded Confirmed Type Albuterol Sulfate [Ventolin Hfa] 1 - 2 puff ORAL INH Q6H PRN #0 01/22/16 History Ipratropium/Albuterol Sulfate 1 vial AEROSOL Q6H PRN #0 01/22/16 08/28/17 History [Iprat-Albut 0.5-3(2.5) mg/3 ml] L.acidoph,Paracasei, B.lactis 1 cap PO DAILY #0 01/22/16 08/28/17 History [Probiotic] Ibuprofen 200 mg PO PRN 08/28/17 08/28/17 History Allergies Allergy/AdvReac Type Severity Reaction Status Date / Time No Known Allergies Allergy Verified 08/28/17 02:45 Exam Vital signs: Temperature 97.5 F 09/02/17 07:44 Pulse Rate 79 09/02/17 08:01 Respiratory Rate 18 09/02/17 11:09 Blood Pressure 145/82 H 09/02/17 07:44 Pulse Oximetry 92 09/02/17 11:09 - Constitutional no acute distress, morbidly obese - Routine HEENT Exam Head: Present: normocephalic, atraumatic Eye: Present: EOMI, PERRL ENT: Present: mucous membranes moist Nose: moist mucous membranes - Routine Neck Exam Present: supple, full ROM, trachea midline - Routine Respiratory Exam Present: wheezes, crackles Comments: faint wheezes and crackles noted in bases - Routine Cardiovascular Exam Present: irregular rhythm - Routine Abdominal Exam Present: soft, normoactive bowel sounds - Routine Extremities Exam Present: edema, non tender, full ROM - Routine Back/Spine/Pelvis Exam Back/Spine: Present: full ROM - Routine Skin Exam Present: intact, dry - Routine Neurological Exam Present: alert, oriented X3, CN II-XII intact - Routine Psychiatric Exam Present: normal affect, normal thought process Results - Laboratory Findings CBC and BMP: 09/01/17 04:17 09/02/17 04:55 ABG ABG pH 7.510 (7.350-7.450) H 09/02/17 07:40 ABG pCO2 72 MMHG (34-45) H* 09/02/17 07:40 ABG pO2 44 MMHG (80-100) L 09/02/17 07:40 ABG O2 Saturation 84.0 % (95.0-98.0) L 09/02/17 07:40 Abnormal lab findings: Abnormal Labs 08/29/17 08/29/17 08/30/17 04:40 04:40 05:44 WBC RBC 4.01 L 3.99 L Hgb 12.6 L 12.6 L MCV 102.2 H 102.8 H MCHC 30.7 L 30.7 L RDW Std Deviation 59.3 H 60.8 H Neut % (Auto) Lymph % (Auto) Neut # (Auto) [place] # (Auto) Neutrophils % (Manual) 89.0 H 97.0 H Lymphocytes % (Manual) 10.0 L 2.0 L Metamyelocytes % 1.0 H Neutrophils # (Manual) 9.2 H Lymphocytes # (Manual) 0.6 L 0.2 L ABG pH ABG pCO2 ABG pO2 ABG HCO3 ABG Total CO2 ABG O2 Saturation ABG Base Excess Potassium Chloride Carbon Dioxide BUN 49.0 H BUN/Creatinine Ratio 41 H Glucose 162 H Calculated Osmolality 288 H Specimen Hemolysis 08/30/17 08/31/17 09/01/17 05:44 04:22 04:17 WBC 13.2 H RBC 4.27 L Hgb MCV 102.1 H MCHC RDW Std Deviation 60.0 H Neut % (Auto) 82.0 H Lymph % (Auto) 8.8 L Neut # (Auto) 10.8 H [place] # (Auto) 1.2 H Neutrophils % (Manual) Lymphocytes % (Manual) Metamyelocytes % Neutrophils # (Manual) Lymphocytes # (Manual) ABG pH ABG pCO2 ABG pO2 ABG HCO3 ABG Total CO2 ABG O2 Saturation ABG Base Excess Potassium Chloride 97 L Carbon Dioxide 33 H BUN 54.0 H* 60.0 H* BUN/Creatinine Ratio 49 H 60 H Glucose 156 H 141 H Calculated Osmolality 287 H 287 H Specimen Hemolysis 134 H 09/01/17 09/02/17 09/02/17 04:17 04:55 07:40 WBC RBC Hgb MCV MCHC RDW Std Deviation Neut % (Auto) Lymph % (Auto) Neut # (Auto) [place] # (Auto) Neutrophils % (Manual) Lymphocytes % (Manual) Metamyelocytes % Neutrophils # (Manual) Lymphocytes # (Manual) ABG pH 7.510 H ABG pCO2 72 H* ABG pO2 44 L ABG HCO3 58 H ABG Total CO2 59.7 H ABG O2 Saturation 84.0 L ABG Base Excess 29.3 H Potassium 2.9 L* D Chloride 91 L D 87 L Carbon Dioxide 37 H 45 H* BUN 55.0 H* 47.0 H BUN/Creatinine Ratio 55 H 59 H Glucose 133 H Calculated Osmolality 292 H 283 H Specimen Hemolysis 33 H - Diagnostic Findings Chest x-ray: image reviewed (as noted in HPI) Assessment and Plan - Assessment and Plan Chronic Hypercapnic Hypoxic Respiratory Failure COPD ELADIA Atrial fibrillation - rate control HFpEF Severe Pulmonary HTN PAP 67-72, WHO group 2&3 AAA 5.5cm, awaiting vascular referral Plan: Pt currently on O2 at 4L per NC, keep sats 90-95%, ABG 7.5/72/44, will start NIPPV here. Has chonic Hypercapnic Respiratory failure secondary to COPD and morbid obesity. He is at high risk for decompensation and even so will order a home vent to mask at discharge. Bipap ruled out. Is currently on bumex 1mg BID with metolazone for diuresis, good UOP. On a/a QID and prednisone 20mg daily, follow only faint wheezing noted. Pulm HTN likely secondary to COPD, ELADIA and CHF, cont to treat comorbidities for management. - Time Spent With Patient Total time spent is greater than 50% in coordination of care (as documented) at patient's floor/unit and/or counseling patient: 25 - 35 minutes
--- NOTE | 2017-09-02 18:36 | Progress Note ---
- Date 09/02/17 Subjective: Mr. Gillis complained of low back pain today which he interpreted as being kidney pain although the area that he pointed to was really over the paraspinal muscles in the low back; pain started on the right and is beginning to involve the left as well. He denied radicular symptoms or numbness in his legs and does not have chronic back pain. He's been ambulating very little during the hospital stay. Dyspnea comes and goes and he has not had enough activity to know if there is exertional dyspnea present. His appetite is good and he denied chest pain or palpitations. He still had little stool and remains concerned about his bowels. Thompson catheter was removed earlier today and he has been voiding without difficulty although nurses report only about 200 mL at any given time. Weight is down 12 kg from admission. He denied lightheadedness. Objective Vital signs: Temperature 97.4 F 09/02/17 16:00 Pulse Rate 78 09/02/17 16:00 Respiratory Rate 18 09/02/17 16:00 Blood Pressure 130/74 09/02/17 16:00 Pulse Oximetry 92 09/02/17 16:00 NAD, alert, flat affect Conjunctiva clear Respirations nonlabored, good airflow, breath sounds clear Irregular rhythm, S1-S2 Abdomen is obese, soft, nontender, bowel sounds present Pitting edema bilateral lower extremities +2-extends into the dependent aspect of the thighs, edema seems greater proximally than distally in the legs No edema palpable in the low back in the low back is not tender to palpation OF the paraspinal muscles. MAEW Rhythm: Atrial Fibrillation with Normal Ventricular Rate (occasional PVC, 4 beat kristian [place] overnight) Height/Weight/BMI: Height 1.75 m Weight 127.3 kg Body Mass Index 45.1 Results - Labs CBC & Chem 7: 09/01/17 04:17 09/02/17 04:55 - ABG Interpretation Attestation: I reviewed and interpreted this ABG. (hypoxia with compensated hypercarbia (suspect hyperventilated during blood gas draw accounting for alkalosis)) ABG results: 09/02/17 07:40 ABG pH 7.510 H ABG pCO2 72 H* ABG pO2 44 L ABG HCO3 58 H ABG Total CO2 59.7 H ABG O2 Saturation 84.0 L ABG Base Excess 29.3 H Assessment and Plan (1) Atrial fibrillation with RVR Problem details: HFpEF-EF 60% last year Current visit: No Status: Acute (2) Congestive heart failure (CHF) Current visit: Yes Status: Acute Assessment and Plan: Assessment: Acute on chronic diastolic CHF Atrial fibrillation with RVR Valvular heart disease-mild/moderate TR, moderate MR Acute kidney injury CAD with bare metal stents 05/31 Hypokalemia-09/02/17 Abdominal aortic aneurysm-5.5 cm by ultrasound Edema Hyperglycemia-A1c 5.6 on 08/29/17 Obstructive sleep apnea-doesn't use CPAP Pulmonary hypertension likely secondary HTN GERD Tobacco use Obstipation Plan: Blood pressure stable with the addition of Toprol-XL 12.5 mg/day; will add lisinopril 2.5 mg in a.m. Continue extended release diltiazem and Eliquis for A. fib. Zaroxolyn on hold today. Diuresing well with Bumex. Renal function stable but bicarbonate up significantly with aggressive diuresis; decrease Bumex to once daily. Blood gas consistent with sleep apnea/chronic hypercarbia-mask to vent recommended long-term and initial trial tonight. Patient advised this will help with management of edema in addition to decreasing risk of . Patient's primary concern remains constipation-lactulose to be given again today and will be ordered for when necessary administration in conjunction with MiraLAX/Senokot. AAA 5.5 cm maximally, discussed with Dr. Conley-referral to vascular surgery being coordinated after heart failure stabilizes. Potassium down significantly after aggressive diuresis-being replaced orally today, recheck in a.m. Hyperglycemia has effectively resolved following discontinuation of IV steroids and decrease dose prednisone. Prednisone to be discontinued after tomorrow morning's dose as wheezing was attributed to pulmonary edema rather than COPD exacerbation. White count up slightly yesterday after several days therapy with steroids, no evidence of acute infection. Monitor intermittently. Heating pads/Tylenol/symptomatic management of back pain Discussed with Dr. Bee, telemetry reviewed by myself. Repeat chest x-ray in a.m. - Physician Narrative Narrative: Date: 09/02/17 Time: 1831 Hospital Course Summary Disclaimer: The visit summary below is not to be considered part of the above Progress Note. Hospital Course: 08/28/17 Patient admitted to CCU. Started on cardizem gtt for rate control, patient given 5mg PO eliquis per cardiology. Will gentle diuresis patient tonight with lasix/albumen. Cardiology to see in AM. Continue home oxygen. Start nicotine patch. 08/29/17 Persistent A. fib with tachycardia-digoxin added earlier today to improve rate control; Dr. Conley increased oral diltiazem after seeing patient in consultation. Continue diuresis, IV Bumex given this morning and scheduled oral Bumex initiated per Dr. Conley. Continue supplemental oxygen-titrate as permitted. Renal function improving with diuresis, continue to monitor AAA 5.5 cm maximally, will require frequent follow-up. Persistent postprandial hyperglycemia, A1c unremarkable. Diabetes not reported chronically. Likely [id number] from IV to oral steroids earlier today. 08/30/[address] Conley-patient has agreed to continue Eliquis for atrial fibrillation/stroke prophylaxis. Rate control has improved significantly with medication modifications made yesterday. Continue Cardizem CD-300 mg daily. Reassess chest x-ray in a.m. Metolazone 5 mg added this morning to augment diuresis-continue for 1-2 days and reassess need. Will convert Bumex to IV administration for couple of days and then back to oral. Renal function stable/improved. 08/31/17 Diuresed well yesterday, Zaroxolyn given again today. Continue Bumex orally. Dr. Colney discussed possibly adding low-dose metoprolol and lisinopril to the patient's regimen to help with management of CHF over the next couple of days depending on course. Rate is well controlled with Cardizem CD. Remains volume overloaded, continue diuresis-BUN up slightly after rapid diuresis yesterday. Hold Zaroxolyn tomorrow. Primary concern today is of constipation-lactulose to be given. AAA 5.5 cm maximally, discussed with Dr. Conley-referral to vascular surgery being coordinated after heart failure stabilizes. Blood pressure stable so far but has been rising slowly. Fasting glucose minimally elevated. Postprandials not yet reported. Suspect steroid-induced hyperglycemia. Taper steroids off over the next 2-3 days (initiated for wheezing on admission- wheezing likely due to pulmonary edema). Known history of obstructive sleep apnea, CPAP previously prescribed but patient did not tolerate and he is reluctant to try again. Check nocturnal oximetry on current oxygen flow rate. 09/01/[address] Conley again today, low-dose Toprol-XL initiated dose of 12.5 mg per day-if tolerates will add lisinopril 2.5 mg in the next 1 or 2 days. Continue extended release diltiazem and Eliquis for A. fib. Zaroxolyn on hold today. Diuresing well with Bumex. Renal function stable. Patient's primary concern remains constipation-lactulose to be given again today and will be ordered for when necessary administration in conjunction with MiraLAX/Senokot. Blood pressure stable-should tolerate addition of beta saud and ARNOL inhibitor (latter depending on renal function). Fasting glucose improved with steroid taper although postprandials remain slightly elevated. Suspect steroid-induced hyperglycemia. Nocturnal oximetry obtained last night revealed episodic hypoxemia on 4 L, oxygen flow increased to 5 L around 2 AM after which there continues to be sawtooth pattern with intermittent saturations into the low 80s and occasionally upper 70s. Total time with O2 saturation < 89% was 1 hour 8 minutes and study strongly suggestive of sleep apnea. Will discuss with patient further tomorrow. Check ABG in a.m. 09/02/17 Blood pressure stable with the addition of Toprol-XL 12.5 mg/day; will add lisinopril 2.5 mg in a.m. Continue extended release diltiazem and Eliquis for A. fib. Zaroxolyn on hold today. Diuresing well with Bumex. Renal function stable but bicarbonate up significantly with aggressive diuresis; decrease Bumex to once daily. Blood gas consistent with sleep apnea/chronic hypercarbia-mask to vent recommended long-term and initial trial tonight. Patient advised this will help with management of edema in addition to decreasing risk of .
[2017-09-02] MEDS: ATORVASTATIN 20 MG TABLET PO SCH (21:15)
[2017-09-02] MEDS: MONTELUKAST 10 MG TABLET PO SCH (21:15)
[2017-09-02] MEDS: INSULIN ASPART 100unit/ml INJECTION SQ PRN (23:00)
[2017-09-02] MEDS ORDERED: MORPHINE SULFATE 4mg INJECTION IVP PRN (23:33)
[2017-09-03] MEDS: SIMETHICONE 125 MG CAPSULE PO SCH ×4 (05:39→20:54)
[2017-09-03] MEDS: ALBUTEROL/IPRATROPIUM 2.5mg-0.5mg/3ml NEB AEROSOL SCH ×4 (07:05→19:55)
[2017-09-03] MEDS: SENNA + DOCUSATE TABLET PO SCH ×2 (08:55→20:51)
[2017-09-03] MEDS: FAMOTIDINE 20 MG TABLET PO SCH ×2 (08:56→20:51)
[2017-09-03] MEDS: APIXABAN 5 MG TABLET PO SCH ×2 (08:56→20:51)
[2017-09-03] MEDS: LISINOPRIL 2.5 MG TABLET PO SCH (08:56)
[2017-09-03] MEDS: LACTAID FAST TABLET PO SCH ×3 (08:56→17:34)
[2017-09-03] MEDS: POLYETHYL GLYCOL 3350 17gm PACKET PO SCH ×2 (08:57→20:50)
[2017-09-03] MEDS: PredniSONE 20 MG TABLET PO SCH (08:57)
[2017-09-03] MEDS: NICOTINE 21 MG PATCH TD SCH (08:57)
[2017-09-03] MEDS: LACTOBACILLUS (15B cfu) CAPSULE PO SCH (08:57)
[2017-09-03] MEDS ORDERED: HYDROCODONE/APAP 5mg/325mg TABLET PO PRN (10:01)
[2017-09-03] MEDS: NICOTINE PATCH REMOVAL TD SCH (10:12)
[2017-09-03] MEDS: acetaZOLAMIDE SR 500 MG CAPSULE PO SCH ×2 (10:12→20:51)
[2017-09-03] MEDS: SALINE FLUSH 10ml SYRINGE IVF PRN (10:13)
--- NOTE | 2017-09-03 11:43 | Progress Note ---
- Date 09/03/17 Subjective: Having a lot of back pain. This is a chronic issue but has worsened with hospitalization and decreased mobility. Breathing improved. Working with PT this morning. Still has edema but improving. Appetite is okay. Objective Vital signs: Temperature 98.2 F 09/03/17 07:43 Pulse Rate 92 09/03/17 07:43 Respiratory Rate 09/03/17 10:35 Blood Pressure 144/95 H 09/03/17 07:43 Pulse Oximetry 95 09/03/17 10:35 Rhythm: Atrial Fibrillation with Normal Ventricular Rate (occasional PVC, 4 beat kristian [place] overnight) Height/Weight/BMI: Height 1.75 m Weight 127.3 kg Body Mass Index 45.1 - Constitutional Present: no acute distress, well nourished, well developed, obese - Routine HEENT Exam Head: Present: normocephalic, atraumatic Eye: Present: EOMI. Absent: conjunctival icterus ENT: Present: mucous membranes moist, oropharynx clear - Routine Respiratory Exam Present: dyspnea, decreased breath sounds. Absent: rhonchi, wheezes - Routine Cardiovascular Exam Present: irregularly irregular. Absent: JVD - Routine Abdominal Exam Present: soft, non distended, non tender - Routine Extremities Exam Present: edema (bilateral LE with arnol wraps, 1+ edema throughout ) - Routine Skin Exam Present: dry, warm. Absent: rash - Routine Neurological Exam Present: alert, oriented X3, moving all extremities, normal speech - Routine Psychiatric Exam Present: normal affect Results - Labs CBC & Chem 7: 09/03/17 04:29 09/03/17 04:29 - ABG Interpretation ABG results: 09/02/17 09/03/17 07:40 06:50 ABG pH 7.510 H 7.508 H ABG pCO2 72 H* 70 H* ABG pO2 44 L 65 L ABG HCO3 58 H 56 H ABG Total CO2 59.7 H > 50 H ABG O2 Saturation 84.0 L 93.0 L ABG Base Excess 29.3 H 27.0 H Assessment and Plan Assessment and Plan: Assessment: Acute on chronic diastolic CHF Atrial fibrillation with RVR Valvular heart disease-mild/moderate TR, moderate MR Acute kidney injury CAD with bare metal stents 05/31 Hypokalemia-persistent with K 3.1 Hypomagnesemia; Mg 1.5 Abdominal aortic aneurysm-5.5 cm by ultrasound Edema; improving slowly Hyperglycemia-A1c 5.6 on 08/29/17 Obstructive sleep apnea-doesn't use CPAP Pulmonary hypertension likely secondary HTN GERD Tobacco use Obstipation Alkalemia; pH 7.5 and bicarb up to 56 on ABG; secondary to loop diuresis Acute on chronic lumbar pain Plan: Blood pressure stable with Toprol and low dose lisinopril added. Continue extended release diltiazem and Eliquis for A. fib. Metolazone on hold; will hold bumex as well and start diamox 500 BID for diuresis and to improve alkalemia. May need to resume metolazone tomorrow. Replete K po and Mag IV over 6 hours. Recheck in AM. Blood gas consistent with sleep apnea/chronic hypercarbia-mask to vent recommended long-term and initial trial tonight. Patient advised this will help with management of edema in addition to decreasing risk of --> tolerated okay, continue use inpatient and will need OP as well. Bowels starting to move now, continue aggressive laxative regimen. AAA 5.5 cm maximally, discussed with Dr. Conley-referral to vascular surgery being coordinated after heart failure stabilizes. Hyperglycemia has effectively resolved following discontinuation of IV steroids and decrease dose prednisone. Prednisone to be stopped after today. Heating pads/Tylenol/symptomatic management of back pain as well as norco Q6H prn (received IV narcotic overnight, will discontinue) Continue daily weights. Labs ordered for AM. Discussed with PT. DVT Prophylaxis: Eliquis Resuscitation Status: Full Code - Physician Narrative Physician: Makayla Linder MD Narrative: Date: 09/03/17 Time: 1136 Hospital Course Summary Disclaimer: The visit summary below is not to be considered part of the above Progress Note. Hospital Course: 08/28/17 Patient admitted to CCU. Started on cardizem gtt for rate control, patient given 5mg PO eliquis per cardiology. Will gentle diuresis patient tonight with lasix/albumen. Cardiology to see in AM. Continue home oxygen. Start nicotine patch. 08/29/17 Persistent A. fib with tachycardia-digoxin added earlier today to improve rate control; Dr. Conley increased oral diltiazem after seeing patient in consultation. Continue diuresis, IV Bumex given this morning and scheduled oral Bumex initiated per Dr. Conley. Continue supplemental oxygen-titrate as permitted. Renal function improving with diuresis, continue to monitor AAA 5.5 cm maximally, will require frequent follow-up. Persistent postprandial hyperglycemia, A1c unremarkable. Diabetes not reported chronically. Likely [id number] from IV to oral steroids earlier today. 08/30/[address] Conley-patient has agreed to continue Eliquis for atrial fibrillation/stroke prophylaxis. Rate control has improved significantly with medication modifications made yesterday. Continue Cardizem CD-300 mg daily. Reassess chest x-ray in a.m. Metolazone 5 mg added this morning to augment diuresis-continue for 1-2 days and reassess need. Will convert Bumex to IV administration for couple of days and then back to oral. Renal function stable/improved. 08/31/17 Diuresed well yesterday, Zaroxolyn given again today. Continue Bumex orally. Dr. Conley discussed possibly adding low-dose metoprolol and lisinopril to the patient's regimen to help with management of CHF over the next couple of days depending on course. Rate is well controlled with Cardizem CD. Remains volume overloaded, continue diuresis-BUN up slightly after rapid diuresis yesterday. Hold Zaroxolyn tomorrow. Primary concern today is of constipation-lactulose to be given. AAA 5.5 cm maximally, discussed with Dr. Conley-referral to vascular surgery being coordinated after heart failure stabilizes. Blood pressure stable so far but has been rising slowly. Fasting glucose minimally elevated. Postprandials not yet reported. Suspect steroid-induced hyperglycemia. Taper steroids off over the next 2-3 days (initiated for wheezing on admission- wheezing likely due to pulmonary edema). Known history of obstructive sleep apnea, CPAP previously prescribed but patient did not tolerate and he is reluctant to try again. Check nocturnal oximetry on current oxygen flow rate. 09/01/[address] Conley again today, low-dose Toprol-XL initiated dose of 12.5 mg per day-if tolerates will add lisinopril 2.5 mg in the next 1 or 2 days. Continue extended release diltiazem and Eliquis for A. fib. Zaroxolyn on hold today. Diuresing well with Bumex. Renal function stable. Patient's primary concern remains constipation-lactulose to be given again today and will be ordered for when necessary administration in conjunction with MiraLAX/Senokot. Blood pressure stable-should tolerate addition of beta saud and ARNOL inhibitor (latter depending on renal function). Fasting glucose improved with steroid taper although postprandials remain slightly elevated. Suspect steroid-induced hyperglycemia. Nocturnal oximetry obtained last night revealed episodic hypoxemia on 4 L, oxygen flow increased to 5 L around 2 AM after which there continues to be sawtooth pattern with intermittent saturations into the low 80s and occasionally upper 70s. Total time with O2 saturation < 89% was 1 hour 8 minutes and study strongly suggestive of sleep apnea. Will discuss with patient further tomorrow. Check ABG in a.m. 09/02/17 Blood pressure stable with the addition of Toprol-XL 12.5 mg/day; will add lisinopril 2.5 mg in a.m. Continue extended release diltiazem and Eliquis for A. fib. Zaroxolyn on hold today. Diuresing well with Bumex. Renal function stable but bicarbonate up significantly with aggressive diuresis; decrease Bumex to once daily. Blood gas consistent with sleep apnea/chronic hypercarbia-mask to vent recommended long-term and initial trial tonight. Patient advised this will help with management of edema in addition to decreasing risk of . 09/03/17 Blood pressure stable with Toprol and low dose lisinopril added. Continue extended release diltiazem and Eliquis for A. fib. Metolazone on hold; will hold bumex as well and start diamox 500 BID for diuresis and to improve alkalemia. May need to resume metolazone tomorrow. Replete K po and Mag IV over 6 hours. Recheck in AM. Blood gas consistent with sleep apnea/chronic hypercarbia-mask to vent recommended long-term and initial trial tonight. Patient advised this will help with management of edema in addition to decreasing risk of --> tolerated okay, continue use inpatient and will need OP as well. Bowels starting to move now, continue aggressive laxative regimen. AAA 5.5 cm maximally, discussed with Dr. Conley-referral to vascular surgery being coordinated after heart failure stabilizes. Hyperglycemia has effectively resolved following discontinuation of IV steroids and decrease dose prednisone. Prednisone to be stopped after today. Heating pads/Tylenol/symptomatic management of back pain as well as norco Q6H prn (received IV narcotic overnight, will discontinue) Continue daily weights. Labs ordered for AM. Discussed with PT.
[2017-09-03] MEDS: MAGNESIUM SULFATE 1gm PREMIX 1 GM/100 ML BAG IV SCH ×2 (13:17→16:00)
--- NOTE | 2017-09-03 14:25 | XRay Report ---
Indication: CHF PROCEDURE: XR chest 2V: Encounter: Initial Comparison: 08/31/2017 Findings: There is cardiomegaly and vascular congestion with mild interstitial pulmonary edema. No definite pleural effusion. Impression: Mild CHF, similar in severity to prior study. .
[2017-09-03] MEDS: INSULIN ASPART 100unit/ml INJECTION SQ PRN (20:50)
[2017-09-03] MEDS: MONTELUKAST 10 MG TABLET PO SCH (20:51)
[2017-09-03] MEDS: ATORVASTATIN 20 MG TABLET PO SCH (20:52)
[2017-09-04] MEDS: SIMETHICONE 125 MG CAPSULE PO SCH ×4 (02:57→21:47)
[2017-09-04] MEDS: LACTAID FAST TABLET PO SCH ×3 (08:00→17:47)
[2017-09-04] MEDS: ALBUTEROL/IPRATROPIUM 2.5mg-0.5mg/3ml NEB AEROSOL SCH ×3 (08:45→15:15)
[2017-09-04] MEDS: NICOTINE PATCH REMOVAL TD SCH (09:00)
[2017-09-04] MEDS: acetaZOLAMIDE 250 MG TABLET PO SCH ×2 (09:50→21:47)
[2017-09-04] MEDS: POLYETHYL GLYCOL 3350 17gm PACKET PO SCH ×2 (09:50→21:57)
[2017-09-04] MEDS: SENNA + DOCUSATE TABLET PO SCH ×2 (09:51→21:47)
[2017-09-04] MEDS: NICOTINE 21 MG PATCH TD SCH (09:52)
[2017-09-04] MEDS: BUMETANIDE 1 MG TABLET PO SCH (09:53)
[2017-09-04] MEDS: LACTOBACILLUS (15B cfu) CAPSULE PO SCH (09:56)
[2017-09-04] MEDS: APIXABAN 5 MG TABLET PO SCH ×2 (09:57→21:47)
[2017-09-04] MEDS: LISINOPRIL 2.5 MG TABLET PO SCH (09:57)
[2017-09-04] MEDS: FAMOTIDINE 20 MG TABLET PO SCH ×2 (09:57→21:47)
[2017-09-04] MEDS: LACTULOSE 20 GM/30 ML ORAL LIQUID PO PRN (09:58)
--- NOTE | 2017-09-04 11:14 | Progress Note ---
- Date 09/04/17 Subjective: Feeling a little better; discussed that he is down > 12 kg from admission weight. Still concerned that he has some LE edema. Dyspnea improved at rest although still very short of air with exertion. Rate control has been fine. Remains irregular but normal rate. No chest pain, fevers, chills. Objective Vital signs: Temperature 96.1 F L 09/04/17 07:48 Pulse Rate 78 09/04/17 08:00 Respiratory Rate 22 09/04/17 08:45 Blood Pressure 110/74 09/04/17 07:48 Pulse Oximetry 95 09/04/17 08:45 Rhythm: Atrial Fibrillation with Normal Ventricular Rate (occasional PVC, 4 beat kristian [place] overnight) Height/Weight/BMI: Height 1.75 m Weight 122.7 kg Body Mass Index 45.1 - Constitutional Present: no acute distress, well nourished, well developed, cooperative - Routine HEENT Exam Head: Present: normocephalic, atraumatic Eye: Present: PERRL. Absent: conjunctival icterus ENT: Present: mucous membranes moist, oropharynx clear - Routine Respiratory Exam Present: wheezes (bilateral, expiratory but with increased air movement ). Absent: rhonchi, crackles - Routine Cardiovascular Exam Present: irregularly irregular. Absent: murmur - Routine Abdominal Exam Present: soft, non distended, non tender - Routine Extremities Exam Present: edema (1+ BLE, chronic venous stasis changes ) - Routine Skin Exam Present: dry, warm. Absent: rash - Routine Neurological Exam Present: alert, oriented X3, normal speech - Routine Psychiatric Exam Present: normal affect Results - Labs CBC & Chem 7: 09/04/17 04:53 09/04/17 04:53 - ABG Interpretation ABG results: 09/03/17 06:50 ABG pH 7.508 H ABG pCO2 70 H* ABG pO2 65 L ABG HCO3 56 H ABG Total CO2 > 50 H ABG O2 Saturation 93.0 L ABG Base Excess 27.0 H Assessment and Plan Assessment and Plan: Assessment: Acute on chronic diastolic CHF Atrial fibrillation with RVR Valvular heart disease-mild/moderate TR, moderate MR Acute kidney injury CAD with bare metal stents 05/31 Hypokalemia-persistent with K 3.1 Hypomagnesemia; Mg 1.5 Abdominal aortic aneurysm-5.5 cm by ultrasound Edema; improving slowly Hyperglycemia-A1c 5.6 on 08/29/17 Obstructive sleep apnea-doesn't use CPAP Pulmonary hypertension likely secondary HTN GERD Tobacco use Obstipation Alkalemia; pH 7.5 and bicarb up to 56 on ABG; secondary to loop diuresis Acute on chronic lumbar pain Plan: Blood pressure stable with Toprol and low dose lisinopril added. Continue extended release diltiazem and Eliquis for A. fib. Metolazone on hold; alkalosis improved on diamox high dose yesterday. Will decrease to diamox 250 BID and restart bumex 1 mg daily. Increase po KCL to 40 meq TID and monitor K levels with repeat labs in AM. Blood gas consistent with sleep apnea/chronic hypercarbia-mask to vent recommended long-term and initial trial tonight. Patient advised this will help with management of edema in addition to decreasing risk of --> tolerated okay, continue use inpatient and will need OP as well. Bowels starting to move now, continue aggressive laxative regimen. AAA 5.5 cm maximally, discussed with Dr. Conley-referral to vascular surgery being coordinated after heart failure stabilizes. Hyperglycemia has effectively resolved following discontinuation of IV steroids and decrease dose prednisone. Prednisone to be stopped after today. Heating pads/Tylenol/symptomatic management of back pain as well as norco Q6H prn Continue daily weights. Labs ordered for AM. DVT Prophylaxis: SCD's, Eliquis Resuscitation Status: Full Code - Physician Narrative Narrative: Date: 09/04/17 Time: 1110 Hospital Course Summary Disclaimer: The visit summary below is not to be considered part of the above Progress Note. Hospital Course: 08/28/17 Patient admitted to CCU. Started on cardizem gtt for rate control, patient given 5mg PO eliquis per cardiology. Will gentle diuresis patient tonight with lasix/albumen. Cardiology to see in AM. Continue home oxygen. Start nicotine patch. 08/29/17 Persistent A. fib with tachycardia-digoxin added earlier today to improve rate control; Dr. Conley increased oral diltiazem after seeing patient in consultation. Continue diuresis, IV Bumex given this morning and scheduled oral Bumex initiated per Dr. Conley. Continue supplemental oxygen-titrate as permitted. Renal function improving with diuresis, continue to monitor AAA 5.5 cm maximally, will require frequent follow-up. Persistent postprandial hyperglycemia, A1c unremarkable. Diabetes not reported chronically. Likely [id number] from IV to oral steroids earlier today. 08/30/[address] Conley-patient has agreed to continue Eliquis for atrial fibrillation/stroke prophylaxis. Rate control has improved significantly with medication modifications made yesterday. Continue Cardizem CD-300 mg daily. Reassess chest x-ray in a.m. Metolazone 5 mg added this morning to augment diuresis-continue for 1-2 days and reassess need. Will convert Bumex to IV administration for couple of days and then back to oral. Renal function stable/improved. 08/31/17 Diuresed well yesterday, Zaroxolyn given again today. Continue Bumex orally. Dr. Conley discussed possibly adding low-dose metoprolol and lisinopril to the patient's regimen to help with management of CHF over the next couple of days depending on course. Rate is well controlled with Cardizem CD. Remains volume overloaded, continue diuresis-BUN up slightly after rapid diuresis yesterday. Hold Zaroxolyn tomorrow. Primary concern today is of constipation-lactulose to be given. AAA 5.5 cm maximally, discussed with Dr. Conley-referral to vascular surgery being coordinated after heart failure stabilizes. Blood pressure stable so far but has been rising slowly. Fasting glucose minimally elevated. Postprandials not yet reported. Suspect steroid-induced hyperglycemia. Taper steroids off over the next 2-3 days (initiated for wheezing on admission- wheezing likely due to pulmonary edema). Known history of obstructive sleep apnea, CPAP previously prescribed but patient did not tolerate and he is reluctant to try again. Check nocturnal oximetry on current oxygen flow rate. 09/01/[address] Conley again today, low-dose Toprol-XL initiated dose of 12.5 mg per day-if tolerates will add lisinopril 2.5 mg in the next 1 or 2 days. Continue extended release diltiazem and Eliquis for A. fib. Zaroxolyn on hold today. Diuresing well with Bumex. Renal function stable. Patient's primary concern remains constipation-lactulose to be given again today and will be ordered for when necessary administration in conjunction with MiraLAX/Senokot. Blood pressure stable-should tolerate addition of beta saud and ARNOL inhibitor (latter depending on renal function). Fasting glucose improved with steroid taper although postprandials remain slightly elevated. Suspect steroid-induced hyperglycemia. Nocturnal oximetry obtained last night revealed episodic hypoxemia on 4 L, oxygen flow increased to 5 L around 2 AM after which there continues to be sawtooth pattern with intermittent saturations into the low 80s and occasionally upper 70s. Total time with O2 saturation < 89% was 1 hour 8 minutes and study strongly suggestive of sleep apnea. Will discuss with patient further tomorrow. Check ABG in a.m. 09/02/17 Blood pressure stable with the addition of Toprol-XL 12.5 mg/day; will add lisinopril 2.5 mg in a.m. Continue extended release diltiazem and Eliquis for A. fib. Zaroxolyn on hold today. Diuresing well with Bumex. Renal function stable but bicarbonate up significantly with aggressive diuresis; decrease Bumex to once daily. Blood gas consistent with sleep apnea/chronic hypercarbia-mask to vent recommended long-term and initial trial tonight. Patient advised this will help with management of edema in addition to decreasing risk of . 09/03/17 Blood pressure stable with Toprol and low dose lisinopril added. Continue extended release diltiazem and Eliquis for A. fib. Metolazone on hold; will hold bumex as well and start diamox 500 BID for diuresis and to improve alkalemia. May need to resume metolazone tomorrow. Replete K po and Mag IV over 6 hours. Recheck in AM. Blood gas consistent with sleep apnea/chronic hypercarbia-mask to vent recommended long-term and initial trial tonight. Patient advised this will help with management of edema in addition to decreasing risk of --> tolerated okay, continue use inpatient and will need OP as well. Bowels starting to move now, continue aggressive laxative regimen. AAA 5.5 cm maximally, discussed with Dr. Conley-referral to vascular surgery being coordinated after heart failure stabilizes. Hyperglycemia has effectively resolved following discontinuation of IV steroids and decrease dose prednisone. Prednisone to be stopped after today. Heating pads/Tylenol/symptomatic management of back pain as well as norco Q6H prn (received IV narcotic overnight, will discontinue) Continue daily weights. Labs ordered for AM. Discussed with PT. 09/04/17 Continue diuresis, change to diamox 250 BID and resume bumex 1 mg daily, continue to hold metolazone. Continue diltiazem/toprol for rate control and eliquis for AC. Wean 02 as tolerated; work on arranging home vent tomorrow. On 4L NC 02 now ( chronic dose) Labs in AM for surveillance; KCL dosing doubled to 40 meq TID today.
[2017-09-04] MEDS ORDERED: HYDROCODONE/APAP 7.5 MG/325 MG TABLET PO PRN (21:20)
[2017-09-04] MEDS ORDERED: MORPHINE SULFATE 2mg INJECTION IVP ONE (21:20)
[2017-09-04] MEDS: SALINE FLUSH 10ml SYRINGE IVF PRN (21:46)
[2017-09-04] MEDS: ATORVASTATIN 20 MG TABLET PO SCH (21:47)
[2017-09-04] MEDS: MONTELUKAST 10 MG TABLET PO SCH (21:47)
[2017-09-05] MEDS: SIMETHICONE 125 MG CAPSULE PO SCH ×4 (02:05→22:50)
[2017-09-05] MEDS: ALBUTEROL/IPRATROPIUM 2.5mg-0.5mg/3ml NEB AEROSOL SCH ×5 (02:15→19:28)
[2017-09-05] MEDS: LACTAID FAST TABLET PO SCH ×3 (09:14→18:24)
[2017-09-05] MEDS: POLYETHYL GLYCOL 3350 17gm PACKET PO SCH ×2 (09:14→22:51)
[2017-09-05] MEDS: acetaZOLAMIDE 250 MG TABLET PO SCH ×2 (09:15→22:51)
[2017-09-05] MEDS: SENNA + DOCUSATE TABLET PO SCH ×2 (09:15→22:49)
[2017-09-05] MEDS: APIXABAN 5 MG TABLET PO SCH ×2 (09:15→22:50)
[2017-09-05] MEDS: BUMETANIDE 1 MG TABLET PO SCH (09:15)
[2017-09-05] MEDS: LISINOPRIL 2.5 MG TABLET PO SCH (09:16)
[2017-09-05] MEDS: LACTOBACILLUS (15B cfu) CAPSULE PO SCH (09:16)
[2017-09-05] MEDS: FAMOTIDINE 20 MG TABLET PO SCH ×2 (09:17→22:51)
[2017-09-05] MEDS: NICOTINE 21 MG PATCH TD SCH (09:18)
[2017-09-05] MEDS: NICOTINE PATCH REMOVAL TD SCH (09:19)
--- NOTE | 2017-09-05 10:58 | Pulmonology Progress Note ---
Subjective Interval history: Pt sitting up to EOB, states breathing is ok. No SOB or cough at this time, wanting to go home. Didn't use bipap last noc but states he will try and use because he doesn't want to yet. Exam Vital signs: Temperature 98.1 F 09/05/17 07:00 Pulse Rate 100 09/05/17 08:00 Respiratory Rate 20 09/05/17 07:15 Blood Pressure 118/79 09/05/17 07:00 Pulse Oximetry 96 09/05/17 07:15 - Constitutional no acute distress, obese - Routine HEENT Exam Head: Present: normocephalic, atraumatic Eye: Present: EOMI, PERRL ENT: Present: mucous membranes moist - Routine Neck Exam Present: supple, trachea midline - Routine Respiratory Exam Present: decreased breath sounds - Routine Cardiovascular Exam Present: RRR, S1, S2, no murmur - Routine Abdominal Exam Present: soft, normoactive bowel sounds - Routine Extremities Exam Present: edema, non tender, full ROM - Routine Back/Spine/Pelvis Exam Back/Spine: Present: full ROM - Routine Skin Exam Present: intact, dry - Routine Neurological Exam Present: alert, oriented X3, CN II-XII intact - Routine Psychiatric Exam Present: normal affect, normal thought process - Urinary Catheter Management Urethral Cath placed during this visit: yes Urethral indwelling: Yes Insertion date: 08/28/17 Insertion time: 18:45 Assessment and Plan - Assessment and Plan Chronic Hypercapnic Hypoxic Respiratory Failure COPD ELADIA Atrial fibrillation - rate control HFpEF Severe Pulmonary HTN PAP 67-72, WHO group 2&3 AAA 5.5cm, awaiting vascular referral Plan: Pt currently on O2 at 3L per NC, keep sats 90-95%, ABG 7.5/72/44. Has chonic Hypercapnic Respiratory failure secondary to COPD and morbid obesity. He is at high risk for decompensation and even so will order a home vent to mask. Bipap ruled out. Is currently on bumex 1mg BID with metolazone for diuresis, good UOP. On a/a QID and prednisone completed. Pulm HTN likely secondary to COPD , ELADIA and CHF, cont to treat comorbidities for management. Once dismissed will need to f/u OP in 2-3 weeks, continue on his home symbicort 160/4.5 2 puffs BID and Proventil, recommend smoking cessation. - Time Spent With Patient Total time spent is greater than 50% in coordination of care (as documented) at patient's floor/unit and/or counseling patient: less than 15 minutes
--- NOTE | 2017-09-05 20:57 | Progress Note ---
- Date 09/05/17 Subjective: Camilo reports dyspnea is significantly improved and that he's been able to walk about the room with minimal difficulty. He continues to have some minor cough but doesn't consider it a role problem. He denies sputum production, chest pain , palpitations, or nausea. He's had small bowel movements last couple days but still is concerned about constipation; he did not want additional laxatives today however. He reports that he is voiding every 5 minutes with current diuretics and weight is down almost 25 kg from admission. He continues to indicate that abdominal girth needs to decrease and suggests that this will improve with diuresis; lower extremity edema is significantly improved. The patient has used BiPAP for the past 3 nights reports that it scares him-Banuelos for about 1.5-2 hours at a time last night and didn't think he could see us chest moving well with it on and subsequently would take it off. Objective Vital signs: Temperature 98.1 F 09/05/17 15:33 Pulse Rate 82 09/05/17 16:00 Respiratory Rate 16 09/05/17 19:28 Blood Pressure 114/69 09/05/17 15:33 Pulse Oximetry 97 -4L 09/05/17 15:47 I/O 1160/1325 Weight 115.2 kg, admission weight 139.1 kg NAD, alert PER, EOMI, conjunctiva clear, oropharynx clear Respirations nonlabored, good airflow, faint crackles at the bases posteriorly but no wheezing Irregular rhythm, S1-S2-good rate control Abdomen is obese, soft, nontender, bowel sounds present Extremities with trace/+1 edema MAEW Rhythm: Atrial Fibrillation with Normal Ventricular Rate (occasional PVC, 4 beat kristian [place] overnight) Height/Weight/BMI: Height 1.75 m Weight 115.2 kg Body Mass Index 45.1 Results - Labs CBC & Chem 7: 09/05/17 05:02 09/05/17 05:02 - Imaging and Cardiology Chest x-ray Status: image reviewed by me (chest x-ray on 09/03 with marked cardiomegaly and bilateral increased vascular markings consistent with heart failure although improved from prior films) Assessment and Plan (1) Atrial fibrillation with RVR Problem details: HFpEF-EF 60% last year Current visit: No Status: Acute (2) Congestive heart failure (CHF) Current visit: Yes Status: Acute Assessment and Plan: Assessment: Acute on chronic diastolic CHF Atrial fibrillation with RVR Valvular heart disease-mild/moderate TR, moderate MR Acute kidney injury CAD with bare metal stents 05/31 Hypokalemia-persistent with K 3.1 Hypomagnesemia; Mg 1.5 Abdominal aortic aneurysm-5.5 cm by ultrasound Edema; improving slowly Hyperglycemia-A1c 5.6 on 08/29/17 Obstructive sleep apnea-doesn't use CPAP Pulmonary hypertension likely secondary HTN GERD Tobacco use Obstipation Alkalemia; pH 7.5 and bicarb up to 56 on ABG; secondary to loop diuresis Acute on chronic lumbar pain Plan: Blood pressure stable with Toprol and low dose lisinopril. Continue extended release diltiazem and Eliquis for A. fib-heart rate well controlled. Metolazone discontinued; alkalosis improved on diamox 250 BID (initially higher ) and bumex 1 mg daily. Increase po KCL to 40 meq TID and monitor K levels with repeat labs in AM. Blood gas consistent with sleep apnea/chronic hypercarbia-mask to vent initiated. Paperwork for home vent to mask submitted but equipment not yet available-likely able to discharge tomorrow. Bowels starting to move now, continue aggressive laxative regimen. AAA 5.5 cm maximally, discussed with Dr. Conley-referral to vascular surgery being coordinated after heart failure stabilizes. Hyperglycemia has effectively resolved following discontinuation of IV steroids and decrease dose prednisone. Prednisone po has been completed. Heating pads/Tylenol/symptomatic management of back pain as well as norco Q6H prn Continue daily weights. Discussed with case management and pulmonary. - Physician Narrative Narrative: Date: 09/05/17 Time: 2051 Hospital Course Summary Disclaimer: The visit summary below is not to be considered part of the above Progress Note. Hospital Course: 08/28/17 Patient admitted to CCU. Started on cardizem gtt for rate control, patient given 5mg PO eliquis per cardiology. Will gentle diuresis patient tonight with lasix/albumen. Cardiology to see in AM. Continue home oxygen. Start nicotine patch. 08/29/17 Persistent A. fib with tachycardia-digoxin added earlier today to improve rate control; Dr. Conley increased oral diltiazem after seeing patient in consultation. Continue diuresis, IV Bumex given this morning and scheduled oral Bumex initiated per Dr. Conley. Continue supplemental oxygen-titrate as permitted. Renal function improving with diuresis, continue to monitor AAA 5.5 cm maximally, will require frequent follow-up. Persistent postprandial hyperglycemia, A1c unremarkable. Diabetes not reported chronically. Likely [id number] from IV to oral steroids earlier today. 08/30/[address] Conley-patient has agreed to continue Eliquis for atrial fibrillation/stroke prophylaxis. Rate control has improved significantly with medication modifications made yesterday. Continue Cardizem CD-300 mg daily. Reassess chest x-ray in a.m. Metolazone 5 mg added this morning to augment diuresis-continue for 1-2 days and reassess need. Will convert Bumex to IV administration for couple of days and then back to oral. Renal function stable/improved. 08/31/17 Diuresed well yesterday, Zaroxolyn given again today. Continue Bumex orally. Dr. Conley discussed possibly adding low-dose metoprolol and lisinopril to the patient's regimen to help with management of CHF over the next couple of days depending on course. Rate is well controlled with Cardizem CD. Remains volume overloaded, continue diuresis-BUN up slightly after rapid diuresis yesterday. Hold Zaroxolyn tomorrow. Primary concern today is of constipation-lactulose to be given. AAA 5.5 cm maximally, discussed with Dr. Conley-referral to vascular surgery being coordinated after heart failure stabilizes. Blood pressure stable so far but has been rising slowly. Fasting glucose minimally elevated. Postprandials not yet reported. Suspect steroid-induced hyperglycemia. Taper steroids off over the next 2-3 days (initiated for wheezing on admission- wheezing likely due to pulmonary edema). Known history of obstructive sleep apnea, CPAP previously prescribed but patient did not tolerate and he is reluctant to try again. Check nocturnal oximetry on current oxygen flow rate. 09/01/[address] Conley again today, low-dose Toprol-XL initiated dose of 12.5 mg per day-if tolerates will add lisinopril 2.5 mg in the next 1 or 2 days. Continue extended release diltiazem and Eliquis for A. fib. Zaroxolyn on hold today. Diuresing well with Bumex. Renal function stable. Patient's primary concern remains constipation-lactulose to be given again today and will be ordered for when necessary administration in conjunction with MiraLAX/Senokot. Blood pressure stable-should tolerate addition of beta saud and ARNOL inhibitor (latter depending on renal function). Fasting glucose improved with steroid taper although postprandials remain slightly elevated. Suspect steroid-induced hyperglycemia. Nocturnal oximetry obtained last night revealed episodic hypoxemia on 4 L, oxygen flow increased to 5 L around 2 AM after which there continues to be sawtooth pattern with intermittent saturations into the low 80s and occasionally upper 70s. Total time with O2 saturation < 89% was 1 hour 8 minutes and study strongly suggestive of sleep apnea. Will discuss with patient further tomorrow. Check ABG in a.m. 09/02/17 Blood pressure stable with the addition of Toprol-XL 12.5 mg/day; will add lisinopril 2.5 mg in a.m. Continue extended release diltiazem and Eliquis for A. fib. Zaroxolyn on hold today. Diuresing well with Bumex. Renal function stable but bicarbonate up significantly with aggressive diuresis; decrease Bumex to once daily. Blood gas consistent with sleep apnea/chronic hypercarbia-mask to vent recommended long-term and initial trial tonight. Patient advised this will help with management of edema in addition to decreasing risk of . 09/03/17 Blood pressure stable with Toprol and low dose lisinopril added. Continue extended release diltiazem and Eliquis for A. fib. Metolazone on hold; will hold bumex as well and start diamox 500 BID for diuresis and to improve alkalemia. May need to resume metolazone tomorrow. Replete K po and Mag IV over 6 hours. Recheck in AM. Blood gas consistent with sleep apnea/chronic hypercarbia-mask to vent recommended long-term and initial trial tonight. Patient advised this will help with management of edema in addition to decreasing risk of --> tolerated okay, continue use inpatient and will need OP as well. Bowels starting to move now, continue aggressive laxative regimen. AAA 5.5 cm maximally, discussed with Dr. Conley-referral to vascular surgery being coordinated after heart failure stabilizes. Hyperglycemia has effectively resolved following discontinuation of IV steroids and decrease dose prednisone. Prednisone to be stopped after today. Heating pads/Tylenol/symptomatic management of back pain as well as norco Q6H prn (received IV narcotic overnight, will discontinue) Continue daily weights. Labs ordered for AM. Discussed with PT. 09/04/17 Continue diuresis, change to diamox 250 BID and resume bumex 1 mg daily, continue to hold metolazone. Continue diltiazem/toprol for rate control and eliquis for AC. Wean 02 as tolerated; work on arranging home vent tomorrow. On 4L NC 02 now ( chronic dose) Labs in AM for surveillance; KCL dosing doubled to 40 meq TID today. 09/05/17 Doing well, weight down nearly 25 kg from admission. Using Hcbg-mg-avex part of the night, waiting for equipment for home-hope to discharge tomorrow. Atrial fibrillation rate well controlled, tolerating combined regimen of diltiazem, low-dose metoprolol, and low-dose lisinopril. Continue diuresis with Diamox and Bumex.
[2017-09-05] MEDS: ATORVASTATIN 20 MG TABLET PO SCH (22:51)
[2017-09-05] MEDS: MONTELUKAST 10 MG TABLET PO SCH (22:51)
[2017-09-06] MEDS: SIMETHICONE 125 MG CAPSULE PO SCH ×3 (03:32→17:46)
[2017-09-06] MEDS: ALBUTEROL/IPRATROPIUM 2.5mg-0.5mg/3ml NEB AEROSOL SCH (08:10)
[2017-09-06 09:01] VITALS: BP 114/69; PULSE 93; RESP 24; TEMP 98.1; O2SAT 97
[2017-09-06] MEDS: NICOTINE PATCH REMOVAL TD SCH (09:10)
[2017-09-06] MEDS: SALINE FLUSH 10ml SYRINGE IVF PRN (09:10)
[2017-09-06] MEDS: NICOTINE 21 MG PATCH TD SCH (09:10)
[2017-09-06] MEDS: LISINOPRIL 2.5 MG TABLET PO SCH (09:10)
[2017-09-06] MEDS: LACTOBACILLUS (15B cfu) CAPSULE PO SCH (09:11)
[2017-09-06] MEDS: BUMETANIDE 1 MG TABLET PO SCH (09:11)
[2017-09-06] MEDS: APIXABAN 5 MG TABLET PO SCH (09:11)
[2017-09-06] MEDS: acetaZOLAMIDE 250 MG TABLET PO SCH (09:11)
[2017-09-06] MEDS: LACTAID FAST TABLET PO SCH ×3 (09:11→18:11)
[2017-09-06] MEDS: FAMOTIDINE 20 MG TABLET PO SCH (09:12)
[2017-09-06] MEDS: SENNA + DOCUSATE TABLET PO SCH (09:12)
[2017-09-06] MEDS: POLYETHYL GLYCOL 3350 17gm PACKET PO SCH (09:12)
--- NOTE | 2017-09-06 10:52 | Discharge Summary ---
Discharge Information Date of admission: 08/28/17 02:17 Anticipated date of discharge: 09/06/17 Attending Physician: Renuka De Paz MD Primary care physician: MD Pamela Flor APRN Consults: Consulting Provider: Wilfrid Conley Reason For Exam: CHF Consulting Provider: Camilo Bee Reason For Exam: ELADIA - Discharge Diagnosis (1) Atrial fibrillation with RVR Status: Acute (2) Congestive heart failure (CHF) Status: Acute Acute on chronic diastolic CHF Atrial fibrillation with RVR Valvular heart disease-mild/moderate TR, moderate MR Acute kidney injury-resolved Thrush Herpes labialis CAD with bare metal stents 05/31 COPD Hypokalemia-persistent with K 3.1-resolved Hypomagnesemia; Mg 1.5-resolved Abdominal aortic aneurysm-5.5 cm by ultrasound Edema; improving slowly Hyperglycemia-A1c 5.6 on 08/29/17 Obstructive sleep apnea-doesn't use CPAP Pulmonary hypertension likely secondary HTN GERD Tobacco use Obstipation Alkalemia; pH 7.5 and bicarb up to 56 on ABG; secondary to loop diuresis Acute on chronic lumbar pain - Laboratory Labs: 09/05/17 05:02 09/06/17 05:25 Laboratory Tests 09/03/17 06:50 ABG pH 7.508 H ABG pCO2 70 H* ABG pO2 65 L ABG HCO3 56 H ABG Total CO2 > 50 H ABG O2 Saturation 93.0 L ABG Base Excess 27.0 H O2 Delivery Method Nasal cannula, liter FiO2 (liters per min) 4 A1C 5.6 on 08/29/17 - Radiology Radiology: Date of Exam: 09/03/17 Indication: CHF PROCEDURE: XR chest 2V: Findings: There is cardiomegaly and vascular congestion with mild interstitial pulmonary edema. No definite pleural effusion. Impression: Mild CHF, similar in severity to prior study .= = = = = = = = = = = = = = = = = = = = = = = = = = = = = = = = = = = = = = = = = = = = = = = = = = = = = = = = = = = Date of Exam: 08/31/17 INDICATION: CHF PROCEDURE: CHEST 2-VIEWS UPRIGHT (PA & LAT) FINDINGS: Pulmonary edema pattern persists without significant interval change. No new or worsening airspace disease. No pneumothorax. Trace pleural effusions. Heart size and mediastinal contours are stable. Impression: Grossly stable appearance of the chest ==== Date of Exam: 08/28/17 Indication: sob PROCEDURE: XR chest 1V: Findings: Continued diffuse interstitial prominence. There is obscuration of the left diaphragm that may be due to overlapping soft tissue and an enlarged cardiac silhouette, although a small left effusion cannot be excluded. No pneumothorax or right pleural effusion. Cardiac silhouette is moderately severely enlarged. Mediastinal contours are stable. Pulmonary vascularity is indistinct. Impression: Chronic or recurrent moderate to severe pulmonary edema. Date of Exam: 08/29/17 EXAM: US abdomen complete HISTORY: Acute renal failure, abdominal distention, ?ascites FINDINGS: Visualized portions of the head and body of the pancreas are unremarkable. The visualized portions of the aorta and IVC are unremarkable. Hepatic parenchyma is homogeneous without evidence for focal mass. The liver is enlarged and measures 19.08 cm. There is normal directional flow of the hepatic vasculature. Both the intra and extrahepatic biliary system are of normal caliber. The common bile duct measures 6.2 mm in maximum diameter. The gallbladder is normal. There is no wall thickening, pericholecystic fluid, sonographic Mcnamara's sign or cholelithiasis.The gallbladder wall measures 4.2 mm in maximum diameter. The kidneys are normal in size without hydronephrosis or mass. Both kidneys demonstrate normal corticomedullary differentiation. The right kidney measures 13.0 x 6.5 x 5.2 cm and left kidney measures 12.7 x 7.3 x 6.7 cm. The spleen is unremarkable. The spleen measures 12.93 cm. No free fluid. Mid to distal abdominal aortic aneurysm measuring 5.5 cm in Maximum diameter. There are trace amounts of free fluid within the abdomen. Limited study due to patient body habitus. IMPRESSION: 1. Distal abdominal aortic aneurysm measuring 5.5 cm maximum diameter. Consider CT angiogram to further evaluate. 2. Mild hepatomegaly. The gallbladder and biliary ducts are within normal limits for the patient's age. 3. Minimal abdominal ascites. History of Present Illness HPI: 67 yo M with PMH of A. Fib, CHF, and COPD on oxygen chronically at home presented to the ED with reports of bilateral lower extremity swelling and noncompliance with medications. Patient denies any pain or discomfort. Patient noted onset of symptoms approximately 2 weeks ago. He was at home when his symptoms began. Symptoms have been persistent in nature since onset. He has no other complaints or associated symptoms. Patient has a history of similar symptoms in the past with exacerbation of atrial fibrillation and congestive heart failure. Patient sees Dr. Abdoul Conley as his developmental training counselor. Cardiology was consulted by ED and it was recommended patient be given digoxin and be admitted. Objective Vital signs: Temperature 98.1 F 09/06/17 09:00 Pulse Rate 93 09/06/17 09:00 Respiratory Rate 24 09/06/17 09:00 Blood Pressure 114/69 09/06/17 09:00 Pulse Oximetry 97 09/06/17 09:00 Rhythm: Atrial Fibrillation with Normal Ventricular Rate (occasional PVC, 4 beat kristian VT overnight) Height/Weight/BMI: Height 1.75 m Weight 115.5 kg Body Mass Index 45.1 - Constitutional Present: no acute distress, well nourished, well developed - Routine HEENT Exam Head: Present: normocephalic, atraumatic Comments: thrush on buccal mucosa, cold sore on R lower lip - Routine Respiratory Exam Present: CTA bilaterally, distant breath sounds. Absent: wheezes - Routine Cardiovascular Exam Present: irregular rhythm - Routine Abdominal Exam Present: soft, non distended, non tender - Routine Extremities Exam Present: edema (tr pitting R LE), normal capillary refill - Routine Skin Exam Present: dry, warm - Routine Neurological Exam Present: alert, oriented X3 - Routine Lymphatic Exam Lymphatic: Absent: adenopathy - Routine Psychiatric Exam Present: normal affect, cooperative Hospital Course This is a general summary of the patient's hospital course. For more details refer to the complete medical record. Hospital course: 08/28/17 Patient admitted to CCU. Started on cardizem gtt for rate control, patient given 5mg PO eliquis per cardiology. Will gentle diuresis patient tonight with lasix/albumin. Cardiology to see in AM. Continue home oxygen. Start nicotine patch. 08/29/17 Persistent A. fib with tachycardia-digoxin added earlier today to improve rate control; Dr. Conley increased oral diltiazem after seeing patient in consultation. Continue diuresis, IV Bumex given this morning and scheduled oral Bumex initiated per Dr. Conley. Continue supplemental oxygen-titrate as permitted. Renal function improving with diuresis, continue to monitor AAA 5.5 cm maximally, will require frequent follow-up. Persistent postprandial hyperglycemia, A1c unremarkable. Diabetes not reported chronically. Likely [id number] from IV to oral steroids earlier today. 08/30/[address] Conley-patient has agreed to continue Eliquis for atrial fibrillation/stroke prophylaxis. Rate control has improved significantly with medication modifications made yesterday. Continue Cardizem CD-300 mg daily. Reassess chest x-ray in a.m. Metolazone 5 mg added this morning to augment diuresis-continue for 1-2 days and reassess need. Will convert Bumex to IV administration for couple of days and then back to oral. Renal function stable/improved. 08/31/17 Diuresed well yesterday, Zaroxolyn given again today. Continue Bumex orally. Dr. Conley discussed possibly adding low-dose metoprolol and lisinopril to the patient's regimen to help with management of CHF over the next couple of days depending on course. Rate is well controlled with Cardizem CD. Remains volume overloaded, continue diuresis-BUN up slightly after rapid diuresis yesterday. Hold Zaroxolyn tomorrow. Primary concern today is of constipation-lactulose to be given. AAA 5.5 cm maximally, discussed with Dr. Conley-referral to vascular surgery being coordinated after heart failure stabilizes. Blood pressure stable so far but has been rising slowly. Fasting glucose minimally elevated. Postprandials not yet reported. Suspect steroid-induced hyperglycemia. Taper steroids off over the next 2-3 days (initiated for wheezing on admission- wheezing likely due to pulmonary edema). Known history of obstructive sleep apnea, CPAP previously prescribed but patient did not tolerate and he is reluctant to try again. Check nocturnal oximetry on current oxygen flow rate. 09/01/[address] Conley again today, low-dose Toprol-XL initiated dose of 12.5 mg per day-if tolerates will add lisinopril 2.5 mg in the next 1 or 2 days. Continue extended release diltiazem and Eliquis for A. fib. Zaroxolyn on hold today. Diuresing well with Bumex. Renal function stable. Patient's primary concern remains constipation-lactulose to be given again today and will be ordered for when necessary administration in conjunction with MiraLAX/Senokot. Blood pressure stable-should tolerate addition of beta saud and ARNOL inhibitor (latter depending on renal function). Fasting glucose improved with steroid taper although postprandials remain slightly elevated. Suspect steroid-induced hyperglycemia. Nocturnal oximetry obtained last night revealed episodic hypoxemia on 4 L, oxygen flow increased to 5 L around 2 AM after which there continues to be sawtooth pattern with intermittent saturations into the low 80s and occasionally upper 70s. Total time with O2 saturation < 89% was 1 hour 8 minutes and study strongly suggestive of sleep apnea. Will discuss with patient further tomorrow. Check ABG in a.m. 09/02/17 Blood pressure stable with the addition of Toprol-XL 12.5 mg/day; will add lisinopril 2.5 mg in a.m. Continue extended release diltiazem and Eliquis for A. fib. Zaroxolyn on hold today. Diuresing well with Bumex. Renal function stable but bicarbonate up significantly with aggressive diuresis; decrease Bumex to once daily. Blood gas consistent with sleep apnea/chronic hypercarbia-mask to vent recommended long-term and initial trial tonight. Patient advised this will help with management of edema in addition to decreasing risk of . 09/03/17 Blood pressure stable with Toprol and low dose lisinopril added. Continue extended release diltiazem and Eliquis for A. fib. Metolazone on hold; will hold bumex as well and start diamox 500 BID for diuresis and to improve alkalemia. May need to resume metolazone tomorrow. Replete K po and Mag IV over 6 hours. Recheck in AM. Blood gas consistent with sleep apnea/chronic hypercarbia-mask to vent recommended long-term and initial trial tonight. Patient advised this will help with management of edema in addition to decreasing risk of --> tolerated okay, continue use inpatient and will need OP as well. Bowels starting to move now, continue aggressive laxative regimen. AAA 5.5 cm maximally, discussed with Dr. Conley-referral to vascular surgery being coordinated after heart failure stabilizes. Hyperglycemia has effectively resolved following discontinuation of IV steroids and decrease dose prednisone. Prednisone to be stopped after today. Heating pads/Tylenol/symptomatic management of back pain as well as norco Q6H prn (received IV narcotic overnight, will discontinue) Continue daily weights. Labs ordered for AM. Discussed with PT. 09/04/17 Continue diuresis, change to diamox 250 BID and resume bumex 1 mg daily, continue to hold metolazone. Continue diltiazem/toprol for rate control and eliquis for AC. Wean 02 as tolerated; work on arranging home vent tomorrow. On 4L NC 02 now ( chronic dose) Labs in AM for surveillance; KCL dosing doubled to 40 meq TID today. 09/05/17 Doing well, weight down nearly 25 kg from admission. Using [id number]-[id number] part of the night, waiting for equipment for home-hope to discharge tomorrow. Atrial fibrillation rate well controlled, tolerating combined regimen of diltiazem, low-dose metoprolol, and low-dose lisinopril. Continue diuresis with Diamox and Bumex. 09/06/17 Ready for DC today. Will be dismissed with vent-to mask. F-u with Dr. Bee in 3 wks F-u with Dr. Ornelas and Jarvis as scheduled - continue diltiazem, metroprolol, lisinopril, and Bumex/KCl. See Pamela Randall in 1 wk with BMP, CBC. Time spent with patient: discharge greater than 30 minutes Resuscitation Status: Full Code Discharge Plan - Discharge Disposition Discharge Date: 09/06/17 Disposition: Discharged Home, Self-Care *Condition: Improved Reason For Visit (Visit label in EMR): A Fib with RVR - Discharge Medications *Discharge Medications: New Bumetanide Tab [Bumex Tab] 1 mg PO DAILY #30 tab DiltiaZEM CD [Cardizem Cd] 300 mg PO DAILY #30 cap Nystatin Oral Liq. [Mycostatin] 5 ml PO QID #4 oz Potassium Chloride [K-DUR 20 mEq Tablet] 1 tab PO DAILY #30 tab acetaZOLAMIDE [Diamox] 250 mg PO BID #60 tab Apixaban [Eliquis] 5 mg PO BID #60 tab Metoprolol Succinate (XL) [Toprol Xl] 12.5 mg PO DAILY #30 tab Continue Ipratropium/Albuterol Sulfate [Iprat-Albut 0.5-3(2.5) mg/3 ml] 1 vial AEROSOL Q6H PRN #0 PRN Reason: SHORTNESS OF AIR Simethicone [Phazyme] 125 mg PO Q6HR #120 cap Aspirin Chewable [ASA] 81 mg PO DAILY tab.chew Budesonide/Formoterol 160/4.5 [Symbicort Inhaler] 2 puff ORAL INH RTBID #1 inhaler NS Lisinopril [Prinivil] 2.5 mg PO DAILY #30 tab Montelukast [Singulair] 10 mg PO HS #30 tab Ibuprofen 200 mg PO PRN Albuterol Sulfate [Ventolin Hfa] 1 - 2 puff ORAL INH Q6H PRN #0 PRN Reason: SHORTNESS OF AIR/WHEEZING L.acidoph,Paracasei, B.lactis [Probiotic] 1 cap PO DAILY #0 Atorvastatin [Lipitor] 20 mg PO HS #30 tab Lactase [Lactaid Fast Act] 2 tab PO TIDWM #180 tab Senna + Docusate [Senna Plus Tablet] 1 tab PO BID tab Discontinued DiltiaZEM CD [Cardizem Cd] 240 mg PO DAILY #30 cap Furosemide [Lasix] 40 mg PO 0900,1700 #60 tab Nebivolol [Bystolic] 20 mg PO DAILY #120 tab PredniSONE [Deltasone] 10 mg PO WB #3 tab Potassium Chloride [K-DUR 20 mEq Tablet] 20 meq PO BID #60 tab - Discharge Packet/Instructions *Diet: Low-salt diet *Activity: As tolerated *Pain Management/Treatment: n/a *Wound Care: N/a *Expected Signs/Symptoms: N/a *Notify Physician if: You have increased shortness of breath, increased swelling , or weight gain of more than 5 pounds *During Business Hours Contact: [facility] *After Business Hours Contact: [facility] and follow after-hours instructions *Pending Lab/Results: No Pending Lab - Referrals/Follow Up *Referrals/Follow Up: Kenneth Ornelas MD [Physician] - (September 05, 10:00a, appointment with Dr. Kenneth Ornelas, Vascular Surgery [address] [facility] [address] [place] [address] take diagnostic image/report from sonogram at [facility] [place] re: distal aortic aneurysm ) Wilfrid Conley MD [Physician] - 2 Weeks (APPOINTMENT ON 09/22 AT 11:00.) Camilo Bee MD [Physician] - 3 Weeks (APPOINTMENT ON 09/27 AT 11:00 .) Pamela Randall APRN [Family Provider] - 1 Week (Needs BMP, CBC in 1 wk APPOINTMENT ON 09/13 AT 10:15.) - Patient Handouts Patient Handouts: A-fib (Atrial Fibrillation) (GEN) - Dismissal Complete Discharge Instructions are:: Complete Physician Narrative - Narrative Physician: Renuka De Paz MD Attestation Narrative: Date: 09/06/17 Time: 1415 I have independently evaluated and examined this patient. I reviewed the chart, the patient's history, and the VP [employer]FORMAT[employer]/PA's documented findings as above. We discussed and formulated the assessment and plan as above with additions as below: Camilo denies dyspnea at this time but remains on 4 L of oxygen as in the past; a new portable oxygen unit is being requested for him. He did not use BiPAP last night indicating RT did not initiated it-some uncertainty regarding circumstances. Bowels are working. Patient feels stable for discharge. Respirations are nonlabored with good airflow and clear breath sounds Cardiac rhythm remains irregular but rate is adequately controlled, telemetry reviewed Discharge weight 115.5 kg Home vent to mask discussed with patient on several occasions, he reported he will use it as tolerates at home so has been coordinated and delivered. Continue home oxygen. In addition to medications as above patient is discharging on low-dose Diamox twice daily. Discussed with Dr. Conley and Dr. Bee.
[2017-09-06] MEDS: LACTULOSE 20 GM/30 ML ORAL LIQUID PO PRN (11:59)
--- NOTE | 2017-09-06 13:32 | Pulmonology Progress Note ---
Subjective Interval history: ready to go home states he will not want to use a NIPPV mask at home. he feels he doesn't need that. He has O2 at home. Exam Vital signs: Temperature 98.1 F 09/06/17 09:00 Pulse Rate 93 09/06/17 09:00 Respiratory Rate 24 09/06/17 09:00 Blood Pressure 114/69 09/06/17 09:00 Pulse Oximetry 97 09/06/17 09:00 - Constitutional no acute distress - Routine Respiratory Exam Present: decreased breath sounds. Absent: accessory muscle use, wheezes - Routine Cardiovascular Exam Present: RRR - Routine Abdominal Exam Present: soft - Urinary Catheter Management Urethral Cath placed during this visit: yes Urethral indwelling: Yes Insertion date: 08/28/17 Insertion time: 18:45 Assessment and Plan (1) COPD exacerbation Status: Acute Assessment and plan: Has chonic Hypercapnic Respiratory failure secondary to COPD and morbid obesity. Pulm HTN likely secondary to COPD, ELADIA and CHF Continue on his home symbicort 160/4.5 2 puffs BID and Proventil, recommend smoking cessation. He will be sent home with O2 to keep sat >90%. Current Visit: No - Assessment and Plan Chronic Hypercapnic Hypoxic Respiratory Failure COPD ELADIA Atrial fibrillation - rate control HFpEF Severe Pulmonary HTN PAP 67-72, WHO group 2&3 AAA 5.5cm, awaiting vascular referral - Time Spent With Patient Total time spent is greater than 50% in coordination of care (as documented) at patient's floor/unit and/or counseling patient: less than 15 minutes
[2017-09-06] MEDS ORDERED: ALBUTEROL/IPRATROPIUM 2.5mg-0.5mg/3ml NEB AEROSOL SCH (15:00)
== END 2017-09-06 15:42 | disposition home or self-care (01) | DRG 292 ==
LOC: ED 00:19 → CCU 02:17 → SUATTDRO 02:17 → CCU 02:57 → MED 08-30 14:50
PROVIDERS: ADMIT Internal Medicine; ATTEND Internal Medicine